=== PATIENT | female | born 1980 | race Caucasian/White ===

== ENCOUNTER → 2017-05-11 08:36 | Outpatient (CLI) | payer OTHER, SELFPAY | PROVIDERS: Visit Provider Obstetrics & Gynecology | DX: O09.92 Supervision of high risk pregnancy, unspecified, second trimester (principal); Z3A.00 Weeks of gestation of pregnancy not specified | CPT/HCPCS: 36415; 86850; 86900 ==

== ENCOUNTER → 2017-06-19 16:05 | Outpatient (CLI) | payer OTHER, SELFPAY ==
[2017-06-19 17:08] LABS: Absolute Lymphocyte Count 1.81 X10^3/ul (0.83-4.51); Absolute Neutrophil Count 4.8 X10^3/uL (2.0-7.7); Basophil# 0.01 X10^3/uL; Basophil% 0.1 % (0-1); Eosinophil# 0.13 X10^3/uL; Eosinophils% 1.7 % (0-5); Hematocrit 33.5 % (37-47); Hemoglobin 11.3 g/dl (12.0-15.0); Lymphocyte # 1.81 X10^3/ul (4.0); Lymphocyte % 24.1 % (19-41); Mean Corp Hgb Conc 33.7 g/gl (32-36); Mean Corpuscular Hgb 30.9 pg (27.0-32.0); Mean Corpuscular Volume 91.5 fL (81-99); Mean Platelet Vol. 9.9 fl (6.2-12.0); Monocyte# 0.77 X10^3/uL; Monocyte% 10.2 % (0-10); Neutrophil # 4.76 X10^3/uL (2.7-7.7); Neutrophil % 63.4 % (47-70); Platelet Count 259 K/mm3 (150-450); RBC Distribution Width SD 42.6 fl (35.1-43.9); Red Blood Count 3.66 M/mm3 (4.2-5.4); White Blood Count 7.5 K/mm3 (4.4-11.0)
[2017-06-19 17:10] LABS: POSITIVE COUNT NO; POSITIVE DIFFERENTIAL NO; POSITIVE MORPHOLOGY NO
[2017-06-19 17:22] LABS: Glucose Challenge Gest 1H 50g 99 mg/dL (70-140)
== END ==
PROVIDERS: Visit Provider Obstetrics & Gynecology
DX: O09.92 Supervision of high risk pregnancy, unspecified, second trimester (principal); Z3A.00 Weeks of gestation of pregnancy not specified
CPT/HCPCS: 36415; 82950; 85025

== ENCOUNTER → 2017-08-25 07:50 | Outpatient (CLI) | payer OTHER, SELFPAY ==
--- NOTE | 2017-08-25 07:53 | US_ITS ---
STUDY: SECOND AND THIRD TRIMESTER OBSTETRICAL ULTRASOUND REASON FOR EXAM: Female, 37 years old. Routine survey. LMP: December 16, 2016. TECHNIQUE: Transabdominal PRIOR ULTRASOUND: Comparison is made with prior study dated May 01, 2017. FINDINGS: There is a single intrauterine fetus. The fetus is in a cephalic presentation. There is demonstrated cardiac activity with a heart rate of 133 bpm. There is a normal amniotic fluid volume. The largest amniotic fluid pocket measures 4.9 cm x 4.3 cm. The amniotic fluid index (GERALDO) is 10.0 cm. The placenta is anterior in location and is not low lying. There are Grade 1 placental changes. The cervix measures in length. The bilateral adnexal regions are normal. BIOMETRY: BPD: 8.97 cm: 36 weeks, 3 days HC: 32.95 cm: 37 weeks, 4 days AC: 35.32 cm: 39 weeks, 2 days FL: 6.98 sign: 30 weeks, 6 days CI: 79% FL/BPD: 78% FL/HC: FL/AC: 20% HC/AC: 0.93 age by current US: 37 weeks, 2 days. DEUCE by current US: September 13, 2017. Estimated weight: 3344 grams, +/- 488 grams, 93 %. age by prior US: 36 weeks, 2 days. DEUCE by prior US: September 20, 2017. Age by LMP: 36 weeks, 0 days. DEUCE by LMP: September 22, 2017. US/OB Limited With Biometrics IMPRESSION: Single live intrauterine gestation with mean gestational age of 37 weeks and 2 days. The measurements obtained today fall within the normal expected range. Electronically Signed: Pietro Baumann MD at 9:40 EDT Tel [phone], Service support ,
== END ==
PROVIDERS: Visit Provider Obstetrics & Gynecology
DX: O26.843 Uterine size-date discrepancy, third trimester (principal)
CPT/HCPCS: 76816

== ENCOUNTER → 2017-08-27 18:47 | Outpatient (CLI) | payer OTHER, SELFPAY ==
[2017-08-27 21:18] LABS: Group B Strep DNA By PCR Negative (Negative); Internal Control PASS; Probe Check PASS; Specimen Processing Control PASS
== END ==
PROVIDERS: Visit Provider Nurse Practitioner Women's Health
DX: Z34.93 Encounter for supervision of normal pregnancy, unspecified, third trimester (principal); Z3A.36 36 weeks gestation of pregnancy
CPT/HCPCS: 87081; 87653

== ENCOUNTER → 2017-09-18 14:27 | Outpatient (CLI) | payer OTHER, SELFPAY ==
--- NOTE | 2017-09-18 14:27 | DT_ITS ---
This patient was seen during an EMR downtime September 14, 2017 - September 21, 2017. This patient may have a combination of paper and electronic documentation or all paper documentation. All documentation is viewable within the e-chart portion of [facility] for each patient visit.
--- NOTE | 2017-09-18 15:19 | US_ITS ---
STUDY: SECOND AND THIRD TRIMESTER OBSTETRICAL ULTRASOUND - LIMITED REASON FOR EXAM: Female, 37 years old. LARGE FOR GESTATIONAL AGE LMP: PRIOR ULTRASOUND: 5.15.18. TECHNIQUE: Transabdominal ultrasound evaluation was performed. FINDINGS: There is a single intrauterine fetus. The fetus is in a cephalic presentation. There is demonstrated cardiac activity with a heart rate of 146 bpm. There is a normal amniotic fluid volume. The largest amniotic fluid pocket measures 4.8 cm. The amniotic fluid index (GERALDO) is 17.9 cm. The placenta is anterior in location and is not low lying. There are Grade 2 placental changes. BIOMETRY: BPD: 94mm: 38 weeks, 3 days HC: 341mm: 39 weeks, 2 days AC: 357mm: 39 weeks, 4 days FL: 77mm: 39 weeks, 4 days Age by LMP: 39 weeks, 3 days. DEUCE by LMP: 6.12.18. age by current US: 39 weeks, 2 days. DEUCE by current US: 6.13.18. Estimated weight: 3762 grams, +/- 549 grams, 71 percentile. US/OB Limited With Biometrics IMPRESSION: There is a single live intrauterine with a heart rate of 146 bpm. age by current US: 39 weeks, 2 days. DEUCE by current US: 6.13.18. Estimated weight: 3762 grams, +/- 549 grams, 71 percentile Electronically Signed: Vincent Anderson MD at 23:05 EDT , Service support ,
== END ==
PROVIDERS: Visit Provider Obstetrics & Gynecology
DX: Z34.90 Encounter for supervision of normal pregnancy, unspecified, unspecified trimester (principal)
CPT/HCPCS: 76816

== ENCOUNTER 2017-09-22 07:05 | Inpatient (IN) | payer OTHER, SELFPAY ==
[2017-09-22] VITALS (22 sets, daily range): BP systolic 73–116; BP diastolic 45–94; PULSE 80–120; RESP 17–23; TEMP 36.1–37.2; O2SAT 100; BMI 30.2
--- NOTE | 2017-09-22 | PLAC_PTH ---
PATIENT: MJ SPANN LOC: [facility] U#:[id number] AGE/SX: 37/F ROOM: 007 RE09/22/[address]: Dr. Bessy Meade MD : 1980 BED: 1 DIS: 09/27/2017 SPEC #: [id number] RECD: 09/22/17 18:42 STATUS: CRISS RESamantha #: [id number] HERNANDEZ: 09/22/17 00:[address]: Bessy Meade DEPT: SURGICAL PATHOLOGY RECD BY: Vidal Hawley ENTERED: 09/23/17 07:47 SP TYPE: PLACENTA OTHR DR: No Primary Care Phys Tissues: Placenta, NOS Procedures: Surgery Specimen Level V HEADER OPERATION: PRE-OP DIAGNOSIS: Rule out abruption TISSUE SUBMITTED: Placenta MICROSCOPIC DIAGNOSIS Harris placenta (419 gm): Umbilical cord ? trivascular with no inflammation Placental membranes ? no pathologic change. Placental disc ? mild Calixto-Johnie change and intravillous congestion. AM:eulogio 09/25/17 MICROSCOPIC DESCRIPTION Slides are reviewed. GROSS DESCRIPTION SPECIMEN: PLACENTA / CLINICAL INFORMATION: A. Weight: 3.688 kg B. Gestational Age: 40 weeks C. Sex: Male PLACENTAL WEIGHT (POST FIXATION): 419 gm PLACENTAL DIMENSIONS: 17 x 16 x 3 cm PLACENTAL SHAPE: Usual ovoid PLACENTAL WEIGHT FOR GESTATIONAL AGE: Within 10-99th percentile MEMBRANES - Present A. Insertion: Marginal B. Site of rupture from edge: 2 cm from edge of placental disc C. Color of membrane: Fernandez-eckert D. Abnormalities: None UMBILICAL CORD - Present A. Color: Fernandez-eckert B. Insertion: The umbilical cord is inserted paracentrally 1 cm away from the margin of the placenta. C. Length: 32 cm D. Diameter: 1 to 1.2 cm E. Number of vessels: Three F. Abnormalities: The umbilical cord shows increased spiraling in half of the length of the umbilical cord towards the end. PLACENTAL DISC - Present A. Color of surface: Fernandez-eckert B. surface abnormalities: None C. Maternal cotyledons: Intact with minimal tears D. Attached retro placental clot: No clot E. Cut surface: Dark red and spongy F. Lesions: None G. Separate clot: Absent SECTIONS SUBMITTED: 1. Membrane roll 2. Cord, maternal end 3. Cord, end 4. Placental disc, and maternal surfaces 5. Placental disc, and maternal surfaces 6. Placental disc, and maternal surfaces, additional membranes SJ:eulogio 09/24/17 TC:5 CPT: 65180
[2017-09-22] MEDS: 0.9% Saline Lock 10 ML Syringe IV ×4 (07:50→18:38)
[2017-09-22] MEDS: Lactated Ringers 1,000 ML 50 ML IV (08:15)
[2017-09-22] MEDS: Oxytocin 30 units/NS 500 ml 30 UNITS/500 ML IV.SOLN IV (08:16)
[2017-09-22 08:17] LABS: Hematocrit 36.3 % (37-47); Hemoglobin 12.5 g/dl (12.0-15.0); Mean Corp Hgb Conc 34.4 g/gl (32-36); Mean Corpuscular Hgb 30.6 pg (27.0-32.0); Mean Corpuscular Volume 88.8 fL (81-99); Mean Platelet Vol. 11.6 fl (6.2-12.0); Platelet Count 193 K/mm3 (150-450); RBC Distribution Width CV 12.5 % (11.6-14.6); RBC Distribution Width SD 39.8 fl (35.1-43.9); Red Blood Count 4.09 M/mm3 (4.2-5.4); Scan Indicated on CBC? Y/N NO; White Blood Count 7.8 K/mm3 (4.4-11.0)
--- NOTE | 2017-09-22 09:26 | PCM.HP.OB ---
- Problem List (1) Uterine size-date discrepancy in third trimester Status: Acute Comment: discussed favorable cervix recommend IOL, plan IOL 40 weeks 91%ile, expectant management, discussed IOL if favorable, discussed primary cs if EFW 5000g (2) Rh negative status during Status: Acute Qualifiers: Comment: Had rhogam at 20 weeks, repeat at 32 weeks (3) Supervision of high risk in second trimester Status: Acute Comment: PRR DEUCE: 09/24/17; Boy;Spouse: Bill History Date of Admission: 09/22/17 Final DEUCE: 09/22/17 Gestational age: 40 Weeks and 0 Days History of this : This is a 37 year-old, G1, P0, at 40 weeks gestational age. she has had large for gestational age measurements and it was discussed with the patient IOL versus expectant management, due to favorable cervix I recommend IOL. Medical History: Medical History (Last Reviewed 09/10/17 @ 15:26 by Griselda Valera) Frequent headaches R51 Migraines G43.909 Surgical History: Surgical History (Last Reviewed 09/10/17 @ 15:26 by Griselda Valera) left shoulder surgery Allergies Sulfa (Sulfonamide Antibiotics) Allergy (Mild, Verified 09/22/17 07:42) Unknown Home Medications: Home Medications vitamin,calcium,gnlppkcp-fmqn-rmsby acid tablet 1 tab PO QDAY 03/27/17 Smoking Status: Never smoker Alcohol: None Number of Fetus(es): 1 Heart Tracins moderate variability reactive no decels cat I TOCO Analysis: no regular History Past Pregnancies: Past Pregnancies Delivery Date Name GA/Weeks Outcome Route Weight Gender Labor Length Anesthesia Delivery Location Provider FOB Labs: Mom's Labs & Results 09/22/17 09/22/17 07:50 07:50 WBC 7.8 RBC 4.09 L Hgb 12.5 Hct 36.3 L MCV 88.8 MCH 30.6 MCHC 34.4 RDW 12.5 RDW Differential 39.8 Plt Count 193 MPV 11.6 Blood Type B NEGATIVE Antibody Screen NEGATIVE Course Did the patient receive Yes care? Labs Blood Type: B RH: NEGATIVE RPR/VDRL/Syphilis Nonreactive Rubella status Immune HbSAg Negative Date Done: 04/23/17 Chlamydia Negative Gonorrhea Negative HIV/AIDS Non-Reactive Group B Strep: Negative Current Obstetrical History Gestational Diabetes No Incompetent Cervix No Infertility No IUGR No Macrosomia Yes: POSSIBLE, 1ST 93 PERCENTILE, SECOND AT 73 PERCENTILE Hypertension/Pre-eclampsia No Placenta Previa/Abruption No PTL/PROM No Uterine anomaly No Oligohydramnios No Polyhydramnios No Multiple gestation No Past Medical History Asthma No Diabetes No Hypertension No Heart disease No Mitral valve prolapse No Neurologic/Seizure disorder/ No Migraines Kidney disease No Liver disease No Varicosities No Clotting disorders/Hx of DVT No Thyroid Dysfunction No Other medical diseases No Psychiatric disorders No Major trauma No Abnormal PAP smear No Sleep apnea No Mammogram in the last 2 years No Social History Marital Status: Alleged father BILL Hx Smoking No Smoking Status Never smoker How long have you used DENIES USE substances (years)? Review of Systems Constitutional: Denies: Fever, Malaise Eyes: Denies: Blurred vision, Vision Change HEENT: Denies: Head Aches, Visual Changes Cardiovascular: Denies: Chest Pain, Palpitations Respiratory: Denies: Cough, Shortness of Breath, Wheezing Gastrointestinal: Denies: Abdominal Pain, Diarrhea, Nausea, Vomiting Genitourinary: Denies: Dysuria, Hematuria Musculoskeletal: Denies: Joint Pain, Muscle pain Skin: Denies: Lesions, Rash Neurological: Denies: Blurred vision, Focal weakness, Headaches Psychiatric: Denies: Anxiety, Depression Endocrine: Denies: Heat/ Cold Intolerance Hematologic/ Lymphatic: Denies: Easy Bruising, Easy Bleeding Physical Exam General: Alert, Cooperative, No apparent distress HEENT: Atraumatic, Normocephalic. Negative for: Thyromegaly, Lymphadenopathy Cardiovascular: Regular rate Lungs: Normal air movement Abdomen: Soft, Non Tender, Gravid Neurological: Deep Tendon Reflexes 2+/4 and Symmetrical, Neuro grossly intact. Negative for: Clonus CORROSION CONTROL FITTER: Normal external genitalia. Negative for: Vulvar lesions Estimated gestational size: Appropriate for gestational size Presentation: Cephalic Cervix Dilation (cm): 3 Station: -2 Effacement (%): 70 Assessment/Plan All Active Problems (Last Reviewed 09/10/17 @ 15:26 by Griselda Valera) Uterine size-date discrepancy in third trimester (Acute) Rh negative status during (Acute) Supervision of high risk in second trimester (Acute) This is a 37 year-old, G1, P0, at 40 weeks gestational age. iol LGA plan pitocin IOL. epi PRN gbs neg
[2017-09-22] MEDS: fentaNYL-bupivacaine (epidural) 100 ML BAG EPIDURAL (12:20)
[2017-09-22] MEDS: Oxytocin 30 units/NS 500 ml 30 UNITS/500 ML IV.SOLN 167 UNITS IV (13:20)
[2017-09-22] MEDS: Cefazolin 2 GM in 0.9% Normal Saline 100 ML IV ×2 (13:30→22:01)
--- NOTE | 2017-09-22 13:30 | CASEMGMT ---
Social Work Note Labor and Delivery All staff call to patient's room during labor process due to concerns with baby's rate. Arrived to room as patient was being taken back to surgical area for possible caesarian section delivery. Madi, who is the father of baby and reported to patient, present in room. No other family members present at this time. Madi reports this is all new to him and not really sure what is happening, this is the first child for both. This telegraphic typewriter operator accompanied Madi to the operating area, answered questions as able, offered support, and sat with Madi until Madi was able to be with either patient or baby. No other services requested at this time. -SOPHIE Ortega, RN [facility]
--- NOTE | 2017-09-22 14:05 | RAD_ITS ---
STUDY: X-RAY - ABDOMEN/PELVIS REASON FOR EXAM: Female, 37 years old. Instrument check post . TECHNIQUE: Two portable AP supine views of the abdomen and pelvis. COMPARISON: None. FINDINGS: Non-visualized lung bases. There is an unremarkable bowel gas pattern. There is no demonstrated free abdominal air. The visualized liver, spleen and kidneys grossly normal in size and morphology. There is soft tissue fullness extending cephalad from the pelvis, consistent with an enlarged uterus. Small calcified phlebolith projects in the left pelvic soft tissues. There are no retained surgical instruments. There are mild degenerative arthroses of the bilateral sacroiliac joints. RAD/Abdomen Single View (Portable) IMPRESSION: 1. Soft tissue fullness consistent with enlarged uterus arising from the pelvis. 2. No retained surgical segments. 3. The bowel gas pattern is nonspecific. Electronically Signed: Demarcus Johnson MD at 14:54 EDT , Service support ,
[2017-09-22 15:09] LABS: Absolute Neutrophil Count 18.5 X10^3/uL (2.0-7.7); Basophil# 0.03 X10^3/uL; Basophil% 0.1 % (0-1); Eosinophil# 0.08 X10^3/uL; Eosinophils% 0.4 % (0-5); Hematocrit 29.3 % (37-47); Lymphocyte % 5.8 % (19-41); Mean Corp Hgb Conc 34.1 g/gl (32-36); Mean Corpuscular Hgb 30.9 pg (27.0-32.0); Mean Corpuscular Volume 90.4 fL (81-99); Mean Platelet Vol. 10.8 fl (6.2-12.0); Monocyte# 0.73 X10^3/uL; Monocyte% 3.5 % (0-10); Neutrophil # 18.46 X10^3/uL (2.7-7.7); Neutrophil % 89.9 % (47-70); POSITIVE COUNT NO; POSITIVE DIFFERENTIAL NO; POSITIVE MORPHOLOGY NO; Platelet Count 159 K/mm3 (150-450); RBC Distribution Width CV 12.8 % (11.6-14.6); RBC Distribution Width SD 40.9 fl (35.1-43.9); Red Blood Count 3.24 M/mm3 (4.2-5.4); White Blood Count 20.6 K/mm3 (4.4-11.0)
[2017-09-22 15:28] LABS: International Normalized Ratio 1.8; Prothrombin Time (Protime)PT. 21.3 SECONDS (11.7-14.9)
[2017-09-22 15:30] LABS: Partial Thromboplast Time 64.9 Seconds (24.1-36.2)
[2017-09-22 15:42] LABS: Fibrinogen 69 mg/dl (203-444)
[2017-09-22 17:22] LABS: Absolute Lymphocyte Count 1.24 X10^3/ul (0.83-4.51); Absolute Neutrophil Count 17.8 X10^3/uL (2.0-7.7); Basophil# 0.02 X10^3/uL; Basophil% 0.1 % (0-1); Differential Indicated SCAN CRITERIA MET; Eosinophil# 0.03 X10^3/uL; Eosinophils% 0.1 % (0-5); Hemoglobin 8.2 g/dl (12.0-15.0); Lymphocyte # 1.24 X10^3/ul (4.0); Mean Corp Hgb Conc 32.8 g/gl (32-36); Mean Corpuscular Hgb 29.9 pg (27.0-32.0); Mean Corpuscular Volume 91.2 fL (81-99); Mean Platelet Vol. 10.9 fl (6.2-12.0); Monocyte# 1.57 X10^3/uL; Monocyte% 7.6 % (0-10); Neutrophil # 17.81 X10^3/uL (2.7-7.7); Neutrophil % 85.6 % (47-70); POSITIVE COUNT NO; POSITIVE DIFFERENTIAL YES; POSITIVE MORPHOLOGY NO; Platelet Count 192 K/mm3 (150-450); RBC Distribution Width CV 12.8 % (11.6-14.6); RBC Distribution Width SD 41.2 fl (35.1-43.9); Red Blood Count 2.74 M/mm3 (4.2-5.4); White Blood Count 20.8 K/mm3 (4.4-11.0)
[2017-09-22 17:25] LABS: International Normalized Ratio 2.7; Partial Thromboplast Time 46.4 Seconds (24.1-36.2); Prothrombin Time (Protime)PT. 29.2 SECONDS (11.7-14.9)
[2017-09-22 17:46] LABS: Fibrinogen < 60 mg/dl (203-444)
--- NOTE | 2017-09-22 18:16 | NURSING ---
Pt reports feeling great. Family at bedside.
[2017-09-22 18:28] LABS: Differential Comment SCANNED
--- NOTE | 2017-09-22 19:36 | NURSING ---
Anesthesia gave 500 of pitocin in OR after delivery.
--- NOTE | 2017-09-22 21:10 | NURSING ---
x ray ordered for instrument count due to urgency of surgery, unable to count prior to incision. K, Ebin
--- NOTE | 2017-09-22 21:20 | OP.PCM_ITS ---
Problem List (1) Uterine size-date discrepancy in third trimester Status: Acute Comment: discussed favorable cervix recommend IOL, plan IOL 40 weeks 91%ile, expectant management, discussed IOL if favorable, discussed primary cs if EFW 5000g (2) Rh negative status during Status: Acute Qualifiers: Comment: Had rhogam at 20 weeks, repeat at 32 weeks (3) Supervision of high risk in second trimester Status: Acute Comment: PRR DEUCE: 09/24/17; Boy;Spouse: Madi Report of Operation Date of Procedure: 09/22/17 Pre-Operative Diagnosis: bradycardia, remote from delivery Post-Operative Diagnosis: same plus abruption and rupture of vessels from velamentous cord insertion Surgery/Procedure Performed:: primary low transverse section Description of Surgical Findings:: placental abruption 10% and extrvasation of blood from vessels near velamentous cord insertion reservations sales supervisor: Marli Engle reservations sales supervisor: Avi Ortiz Type of Anesthesia:: Epidural Special Medications: ancef Specimen's removed: placenta, male infant vertex presentation Drains: kay Estimated Blood Loss (mL): 900 Fluids Replaced: crystalloid Description of Procedure: Patient received epidural anesthesia and underwent AROM clear fluid, when about ten minutes later there was a terminal bradycardia, the patient underwent position changes and was taken to the back with persistent bradycardia confirmed and therefore a stat csection was called. Kay catheter was placed. The patient was placed in the dorsal supine position with leftward tilt. Patient was splash prepped and draped in sterile fashion. Pfannenstiel skin incision was made with the scalpel and carried through to the underlying layer of fascia with the scalpel. Fascia was nicked in the midline and the incision extended laterally. The peritoneum was entered digitally. The incision was stretched and a low transverse uterine incision was made with the scalpel. The infant's head was delivered atraumatically followed by the anterior and posterior shoulders without complication the rest of the infant delivered. The cord was clamped and cut and the infant was handed off to awaiting nurse. The placenta was delivered spontaneously immediately following and was noted to be intact and have a three-vessel cord- see operative findings for details. The uterus was exteriorized cleared of all clots and debris, and the incision was closed in a double layer closure using #1 Monocryl. there was a small cervical extension vaginally that was repaired also in a double layer closure. The uterus was returned to the maternal abdomen and gutters were cleared of all clots and debris. The ovaries and fallopian tubes were noted to be within normal limits. The peritoneum was closed with 3-0 Monocryl in a running fashion. Fascia was closed with 0 PDS in a running fashion. Subcutaneous tissue was copiously irrigated and the skin was closed with 3-0 Monocryl in a subcutanoeous and subcuticular fashion. Mepilex dressing were applied without complication. Patient was taken to recovery in stable condition. Grafts/Implants Used: kay - Complications none - Admit VTE Documentation VTE Present on Admission: No VTE Mechan Device Prophylaxis: SCD's
--- NOTE | 2017-09-22 21:21 | PCM.PN.OB ---
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 (Acute) hemorrhage (Acute) Anemia associated with acute blood loss (Acute) DIC (disseminated intravascular coagulation) (Acute) Subjective: called secondary to PPH- atony noted, patient seen at 1448. methergine, hemabate, and pitocin given. atony resolved but persistent bleeding- bakri balloon placed with 500cc inflated. minimal persistent bleeding noted, lysteda given. bedside ultrasound performed and no retained POC or intrauterine clot seen. coag panel sent. patient reevaluated at 1600 due to low fibrinogen and elevated coag panel- will give 2 units FFP and 1 pack of cryo. 300 cc out from bakri balloon, no clinical bleeding from IV sites or incision. hespan given. patient reevaluated at 1730 and s/p ffp and cryo, will give 1 unit PRBCs, continuing to stabilize and feels better. - Physical Exam General: Alert, Oriented x3 Lungs: Normal air movement Cardiovascular: No murmurs, Tachycardic Abdomen: Soft, Non Tender, - - FF at Umbilicus Extremities: No edema Psych/Mental Status: Normal Affect, Appropriate Vital Signs Temp Pulse Resp BP Pulse Ox 98.0 F 100 17 109/67 100 09/22/17 20:35 09/22/17 20:35 09/22/17 20:35 09/22/17 20:35 09/22/17 20:35 Oxygen Delivery Method Room Air Weight: 205 lb Body Mass Index (BMI) 30.2 Intake and Output for Last 24 Hours 09/20/17 09/21/17 09/22/17 23:59 23:59 23:59 Intake Total 5312 / 5312 Output Total 775 / 775 Balance 4537 / 4537 Laboratory Tests Past 24 Hrs 09/22/17 09/22/17 09/22/17 07:50 07:50 07:50 WBC 7.8 RBC 4.09 L Hgb 12.5 Hct 36.3 L MCV 88.8 MCH 30.6 MCHC 34.4 RDW 12.5 RDW Differential 39.8 Plt Count 193 MPV 11.6 Immature Gran % (Auto) Neut % (Auto) Lymph % (Auto) [place] % (Auto) Eos % (Auto) Baso % (Auto) Absolute Neuts (auto) Absolute Lymphs (auto) Total Counted Differential Comment PT INR APTT Fibrinogen Blood Type B NEGATIVE Antibody Screen NEGATIVE Crossmatch See Detail 09/22/17 09/22/17 09/22/17 14:50 14:50 16:40 WBC 20.6 H 20.8 H RBC 3.24 L 2.74 L Hgb 10.0 L 8.2 L Hct 29.3 L 25.0 L MCV 90.4 91.2 MCH 30.9 29.9 MCHC 34.1 32.8 RDW 12.8 12.8 RDW Differential 40.9 41.2 Plt Count 159 192 MPV 10.8 10.9 Immature Gran % (Auto) 0.300 0.600 Neut % (Auto) 89.9 H 85.6 H Lymph % (Auto) 5.8 L 6.0 L [place] % (Auto) 3.5 7.6 Eos % (Auto) 0.4 0.1 Baso % (Auto) 0.1 0.1 Absolute Neuts (auto) 18.5 H 17.8 H Absolute Lymphs (auto) 1.20 1.24 Total Counted Not Reportable Not Reportable Differential Comment SCANNED PT 21.3 H INR 1.8 APTT 64.9 H Fibrinogen 69 L* Blood Type Antibody Screen Crossmatch 09/22/17 16:40 WBC RBC Hgb Hct MCV MCH MCHC RDW RDW Differential Plt Count MPV Immature Gran % (Auto) Neut % (Auto) Lymph % (Auto) [place] % (Auto) Eos % (Auto) Baso % (Auto) Absolute Neuts (auto) Absolute Lymphs (auto) Total Counted Differential Comment PT 29.2 H INR 2.7 APTT 46.4 H Fibrinogen < 60 L* Blood Type Antibody Screen Crossmatch Medical Necessity - Tobacco Use Smoking Status: Never smoker Assessment/Plan All Active Problems (Last Reviewed 09/10/17 @ 15:26 by Griselda Valera) 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 s/p LTCS due to bradycardia velamentous cord insertion with rupture of umbilical vessels and abruption hemorrhage- sp methergine hemabate pitocin lysteda. bakri balloon in place- dc 18-24 hours. additional dose of ancef given DIC- blood products replaced, check repeat labs in 4 hours, discussed with ICU attending, stable for continued status on floor. anemia secondary to acute blood loss- sp 2 units FFp, 1 unit cryo, hespan, crystalloid.
[2017-09-22] MEDS: oxyCODONE 5 MG Tablet PO (21:45)
[2017-09-22] MEDS: Lactated Ringers 1,000 ML 100 ML IV (22:30)
[2017-09-23] VITALS (44 sets, daily range): BP systolic 81–116; BP diastolic 32–77; PULSE 83–156; RESP 15–39; TEMP 36.3–38.3; O2SAT 91–100
[2017-09-23 00:59] LABS: Basophil% 0.1 % (0-1); Differential Indicated SCAN CRITERIA MET; Hematocrit 16.1 % (37-47); Hemoglobin 5.5 g/dl (12.0-15.0); Lymphocyte % 6.3 % (19-41); Mean Corp Hgb Conc 34.2 g/gl (32-36); Mean Corpuscular Hgb 29.6 pg (27.0-32.0); Mean Corpuscular Volume 86.6 fL (81-99); Mean Platelet Vol. 10.5 fl (6.2-12.0); Monocyte% 10.6 % (0-10); Neutrophil # 12.48 X10^3/uL (2.7-7.7); Neutrophil % 82.9 % (47-70); POSITIVE COUNT YES; POSITIVE DIFFERENTIAL YES; POSITIVE MORPHOLOGY YES; Platelet Count 78 K/mm3 (150-450); RBC Distribution Width CV 13.6 % (11.6-14.6); RBC Distribution Width SD 43.3 fl (35.1-43.9); Red Blood Count 1.86 M/mm3 (4.2-5.4); White Blood Count 15.1 K/mm3 (4.4-11.0)
[2017-09-23 01:00] LABS: Absolute Lymphocyte Count 0.95 X10^3/ul (0.83-4.51); Absolute Neutrophil Count 12.5 X10^3/uL (2.0-7.7); Basophil# 0.01 X10^3/uL; Lymphocyte # 0.95 X10^3/ul (4.0); Monocyte# 1.59 X10^3/uL
[2017-09-23 01:01] LABS: International Normalized Ratio 1.3; Prothrombin Time (Protime)PT. 16.5 SECONDS (11.7-14.9)
[2017-09-23 01:02] LABS: Partial Thromboplast Time 32.3 Seconds (24.1-36.2)
[2017-09-23 01:09] LABS: Fibrinogen 160 mg/dl (203-444)
--- NOTE | 2017-09-23 01:40 | NURSING ---
Dr. Johnson notified via phone of patient's lab results. Orders received to give 3 units PRBC's and 1 unit FFP. There are to be 2 units of blood on hold and platelets on hold. Blood bank notified of above orders.
[2017-09-23 01:46] LABS: Differential Comment SCANNED
[2017-09-23] MEDS: 0.9% Normal Saline 1,000 ML 250 ML IV ×2 (01:50→12:50)
--- NOTE | 2017-09-23 02:06 | PCM.PN.OB ---
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 (Acute) hemorrhage (Acute) Anemia associated with acute blood loss (Acute) DIC (disseminated intravascular coagulation) (Acute) Objective: Labs (Last 48 Hours) 09/22/17 09/22/17 09/22/17 07:50 07:50 07:50 WBC 7.8 RBC 4.09 L Hgb 12.5 Hct 36.3 L MCV 88.8 MCH 30.6 MCHC 34.4 RDW 12.5 RDW Differential 39.8 Plt Count 193 MPV 11.6 Immature Gran % (Auto) Neut % (Auto) Lymph % (Auto) [place] % (Auto) Eos % (Auto) Baso % (Auto) Absolute Neuts (auto) Absolute Lymphs (auto) Total Counted Differential Comment Diff Path Review PT INR APTT Fibrinogen Blood Type B NEGATIVE Antibody Screen NEGATIVE Screen Baby's Blood Type Baby's SONDRA Crossmatch See Detail 09/22/17 09/22/17 09/22/17 07:50 14:50 14:50 WBC 20.6 H RBC 3.24 L Hgb 10.0 L Hct 29.3 L MCV 90.4 MCH 30.9 MCHC 34.1 RDW 12.8 RDW Differential 40.9 Plt Count 159 MPV 10.8 Immature Gran % (Auto) 0.300 Neut % (Auto) 89.9 H Lymph % (Auto) 5.8 L [place] % (Auto) 3.5 Eos % (Auto) 0.4 Baso % (Auto) 0.1 Absolute Neuts (auto) 18.5 H Absolute Lymphs (auto) 1.20 Total Counted Not Reportable Differential Comment Diff Path Review PT 21.3 H INR 1.8 APTT 64.9 H Fibrinogen 69 L* Blood Type Antibody Screen Screen Baby's Blood Type Baby's SONDRA Crossmatch See Detail 09/22/17 09/22/17 09/23/17 16:40 16:40 00:30 WBC 20.8 H 15.1 H RBC 2.74 L 1.86 L Hgb 8.2 L 5.5 L* Hct 25.0 L 16.1 L MCV 91.2 86.6 MCH 29.9 29.6 MCHC 32.8 34.2 RDW 12.8 13.6 RDW Differential 41.2 43.3 Plt Count 192 78 L MPV 10.9 10.5 Immature Gran % (Auto) 0.600 0.100 Neut % (Auto) 85.6 H 82.9 H Lymph % (Auto) 6.0 L 6.3 L [place] % (Auto) 7.6 10.6 H Eos % (Auto) 0.1 0.0 Baso % (Auto) 0.1 0.1 Absolute Neuts (auto) 17.8 H 12.5 H Absolute Lymphs (auto) 1.24 0.95 Total Counted Not Reportable Not Reportable Differential Comment SCANNED SCANNED Diff Path Review August PT 29.2 H INR 2.7 APTT 46.4 H Fibrinogen < 60 L* Blood Type Antibody Screen Screen Baby's Blood Type Baby's SONDRA Crossmatch 09/23/17 09/23/17 00:30 00:30 WBC RBC Hgb Hct MCV MCH MCHC RDW RDW Differential Plt Count MPV Immature Gran % (Auto) Neut % (Auto) Lymph % (Auto) [place] % (Auto) Eos % (Auto) Baso % (Auto) Absolute Neuts (auto) Absolute Lymphs (auto) Total Counted Differential Comment Diff Path Review PT 16.5 H INR 1.3 APTT 32.3 Fibrinogen 160 L Blood Type Antibody Screen Screen Pending Baby's Blood Type Pending Baby's SONDRA Pending Crossmatch - Physical Exam General: Alert, Oriented x3, No apparent distress Lungs: Normal air movement Cardiovascular: Tachycardic - mild 105-115 Abdomen: Tender, - - moderate distended, incision intact and dry bandage, fundus firm at U and bedside ultrasound done, thin lining with no intrauterine clot seen. bakri balloon bag drained for 75, total 475 since delivery. Vital Signs Temp Pulse Resp BP Pulse Ox 98.3 F 105 H 16 103/52 L 100 09/23/17 01:58 09/23/17 01:58 09/23/17 01:58 09/23/17 01:58 09/23/17 01:58 Oxygen Delivery Method Room Air Weight: 205 lb Body Mass Index (BMI) 30.2 Intake and Output for Last 24 Hours 09/21/17 09/22/17 09/23/17 23:59 23:59 23:59 Intake Total 5312 / 5312 900 / 900 Output Total 775 / 775 475 / 475 Balance 4537 / 4537 425 / 425 Laboratory Tests Past 24 Hrs 09/22/17 09/22/17 09/22/17 07:50 07:50 07:50 WBC 7.8 RBC 4.09 L Hgb 12.5 Hct 36.3 L MCV 88.8 MCH 30.6 MCHC 34.4 RDW 12.5 RDW Differential 39.8 Plt Count 193 MPV 11.6 Immature Gran % (Auto) Neut % (Auto) Lymph % (Auto) [place] % (Auto) Eos % (Auto) Baso % (Auto) Absolute Neuts (auto) Absolute Lymphs (auto) Total Counted Differential Comment Diff Path Review PT INR APTT Fibrinogen Blood Type B NEGATIVE Antibody Screen NEGATIVE Screen Baby's Blood Type Baby's SONDRA Crossmatch See Detail 09/22/17 09/22/17 09/22/17 07:50 14:50 14:50 WBC 20.6 H RBC 3.24 L Hgb 10.0 L Hct 29.3 L MCV 90.4 MCH 30.9 MCHC 34.1 RDW 12.8 RDW Differential 40.9 Plt Count 159 MPV 10.8 Immature Gran % (Auto) 0.300 Neut % (Auto) 89.9 H Lymph % (Auto) 5.8 L [place] % (Auto) 3.5 Eos % (Auto) 0.4 Baso % (Auto) 0.1 Absolute Neuts (auto) 18.5 H Absolute Lymphs (auto) 1.20 Total Counted Not Reportable Differential Comment Diff Path Review PT 21.3 H INR 1.8 APTT 64.9 H Fibrinogen 69 L* Blood Type Antibody Screen Screen Baby's Blood Type Baby's SONDRA Crossmatch See Detail 09/22/17 09/22/17 09/23/17 16:40 16:40 00:30 WBC 20.8 H 15.1 H RBC 2.74 L 1.86 L Hgb 8.2 L 5.5 L* Hct 25.0 L 16.1 L MCV 91.2 86.6 MCH 29.9 29.6 MCHC 32.8 34.2 RDW 12.8 13.6 RDW Differential 41.2 43.3 Plt Count 192 78 L MPV 10.9 10.5 Immature Gran % (Auto) 0.600 0.100 Neut % (Auto) 85.6 H 82.9 H Lymph % (Auto) 6.0 L 6.3 L [place] % (Auto) 7.6 10.6 H Eos % (Auto) 0.1 0.0 Baso % (Auto) 0.1 0.1 Absolute Neuts (auto) 17.8 H 12.5 H Absolute Lymphs (auto) 1.24 0.95 Total Counted Not Reportable Not Reportable Differential Comment SCANNED SCANNED Diff Path Review May foll PT 29.2 H INR 2.7 APTT 46.4 H Fibrinogen < 60 L* Blood Type Antibody Screen Screen Baby's Blood Type Baby's SONDRA Crossmatch 09/23/17 09/23/17 00:30 00:30 WBC RBC Hgb Hct MCV MCH MCHC RDW RDW Differential Plt Count MPV Immature Gran % (Auto) Neut % (Auto) Lymph % (Auto) [place] % (Auto) Eos % (Auto) Baso % (Auto) Absolute Neuts (auto) Absolute Lymphs (auto) Total Counted Differential Comment Diff Path Review PT 16.5 H INR 1.3 APTT 32.3 Fibrinogen 160 L Blood Type Antibody Screen Screen Pending Baby's Blood Type Pending Baby's SONDRA Pending Crossmatch Medical Necessity - Tobacco Use Smoking Status: Never smoker Assessment/Plan All Active Problems (Last Reviewed 09/10/17 @ 15:26 by Griselda Valera) 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 bakri balloon in place- dc at noon. additional dose of ancef given DIC- normalizing coagulation profile. giving additional unit ffp and cryo. anemia secondary to acute blood loss- sp 2 units FFP, 1 unit cryo, hespan, crystalloid. transfusing additional 3 units of RBCs, 1 unit FFP, 1 unit of cryo, and ordered a pack of platelets.
[2017-09-23] MEDS: DiphenhydrAMINE 50 MG/ML Syringe IV (02:15)
[2017-09-23] MEDS: Acetaminophen 325 MG Tablet 650 MG PO (02:15)
--- NOTE | 2017-09-23 02:23 | NURSING ---
0145 Dr. Meade at bedside to assess patient. Bedside US completed. No new orders at this time.
[2017-09-23] MEDS: oxyCODONE 5 MG Tablet PO ×5 (03:36→21:55)
--- NOTE | 2017-09-23 03:45 | NURSING ---
0230 Dr. Nicholson notified via phone regarding order to run both bags of RBC's in at the same time. In route to patient's room to assist with monitoring.
--- NOTE | 2017-09-23 05:45 | NURSING ---
0500- Dr. Meade called to patient room to assess abdomen. Visually looks more distended. Soft on palpation and uterus remains +1 station. Orders received to send blood work at this time.
[2017-09-23] MEDS: Senna/Docusate Sodium 1 Tablet PO (05:59)
--- NOTE | 2017-09-23 06:45 | NURSING ---
Attempted lab draw on patient several times without success. Lab notified and will come and draw specimen.
[2017-09-23 07:39] LABS: ALB/GLOB Ratio 0.8 RATIO (0.9-2.4); AST(SGOT) 37 U/L (15-37); Alanine Aminotransfer ALT/SGPT 18 U/L (13-56); Albumin, Serum 1.9 g/dL (3.2-5.0); Alkaline Phosphatase 72 U/L (45-117); Anion Gap 11 (5-15); BUN 13 mg/dL (7-18); BUN/Creat Ratio 11.5 RATIO (10-20); Calcium,Total 7.2 mg/dL (8.5-10.1); Chloride 105 mmol/L (98-107); Creatinine, Serum 1.13 mg/dL (0.55-1.02); EST Glomerular Filtration Rate 58 mL/min (>60); Est Glom Filt Rate - Afr Amer 70 mL/min (>60); Globulin 2.5 g/dL (2.2-4.2); Glucose 90 mg/dL (74-106); Magnesium 1.4 mg/dL (1.6-2.6); Potassium 4.2 mmol/L (3.5-5.1); Protein, Total 4.4 g/dL (6.4-8.2); Sodium Level 137 mmol/L (136-145)
[2017-09-23 08:47] LABS: Partial Thromboplast Time 28.4 Seconds (24.1-36.2)
[2017-09-23 08:48] LABS: Fibrinogen 273 mg/dl (203-444)
[2017-09-23 08:51] LABS: International Normalized Ratio 1.2
--- NOTE | 2017-09-23 09:06 | PCM.PN.OB ---
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 bleeding stable. last unit of cryo going- recommend checking labs now patient seen at 730 am- had difficulty drawing labs but they have been sent now, distension is slightly less but still prominent, has increased bowel sounds now, softer abdomen, but cigar wrapper tender automatic. no CP SOB NV - Physical Exam General: Alert, No apparent distress Lungs: Clear to auscultation, Normal air movement Cardiovascular: Regular rate, Regular Rhythm, No murmurs Abdomen: Bowel Sounds Present, Soft, Distended, Tender Skin: No rashes, No breakdown Psych/Mental Status: Normal Affect, Appropriate Vital Signs Temp Pulse Resp BP Pulse Ox 99.7 F H 90 18 105/66 100 09/23/17 08:19 09/23/17 08:19 09/23/17 08:19 09/23/17 08:19 09/23/17 08:19 Oxygen Delivery Method Room Air Weight: 205 lb Body Mass Index (BMI) 30.2 Intake and Output for Last 24 Hours 09/21/17 09/22/17 09/23/17 23:59 23:59 23:59 Intake Total 5312 / 5312 3840 / 3840 Output Total 775 / 775 1775 / 1775 Balance 4537 / 4537 2065 / 2065 Laboratory Tests Past 24 Hrs 09/22/17 09/22/17 09/22/17 07:50 07:50 07:50 WBC Corrected WBC RBC Hgb Hct MCV MCH MCHC RDW RDW Differential Plt Count MPV Immature Gran % (Auto) Neut % (Auto) Lymph % (Auto) [place] % (Auto) Eos % (Auto) Baso % (Auto) Immature Gran # (Auto) Absolute Neuts (auto) Absolute Lymphs (auto) Absolute Monos (auto) Total Counted Neutrophils % (Manual) Band Neutrophils % Lymphocytes % (Manual) Monocytes % (Manual) Eosinophils % (Manual) Basophils % (Manual) Metamyelocytes % Myelocytes % Promyelocytes % Blast Cells % Plasma Cell % (Manual) Other Cells % Lymphocytes # Nucleated RBCs/100 WBC Differential Comment Diff Path Review Hypersegmented Neuts Atypical Lymphocytes Reactive Lymphocytes Smudge Cells Eosinophilia # Basophilia # Toxic Granulation Dohle Bodies Patricia Rods Platelet Estimate Plt Morphology Comment RBC Morphology Polychromasia Hypochromasia Poikilocytosis Basophilic Stippling Anisocytosis Microcytosis Macrocytosis Spherocytes Sickle Cells Target Cells Tear Drop Cells Ovalocytes Stomatocytes [place] Bodies [place] Cells Bite Cells Acanthocytes (Spur) Rouleaux Schistocytes PT INR APTT Fibrinogen Sodium Potassium Chloride Carbon Dioxide Anion Gap BUN Creatinine Est GFR (MDRD) Af Amer Est GFR (MDRD) Non-Af BUN/Creatinine Ratio Glucose Calcium Magnesium Total Bilirubin AST ALT Alkaline Phosphatase Total Protein Albumin Globulin Albumin/Globulin Ratio Blood Type B NEGATIVE Antibody Screen NEGATIVE Screen Baby's Blood Type Baby's SONDRA Crossmatch See Detail See Detail 09/22/17 09/22/17 09/22/17 14:50 14:50 16:40 WBC 20.6 H 20.8 H Corrected WBC RBC 3.24 L 2.74 L Hgb 10.0 L 8.2 L Hct 29.3 L 25.0 L MCV 90.4 91.2 MCH 30.9 29.9 MCHC 34.1 32.8 RDW 12.8 12.8 RDW Differential 40.9 41.2 Plt Count 159 192 MPV 10.8 10.9 Immature Gran % (Auto) 0.300 0.600 Neut % (Auto) 89.9 H 85.6 H Lymph % (Auto) 5.8 L 6.0 L [place] % (Auto) 3.5 7.6 Eos % (Auto) 0.4 0.1 Baso % (Auto) 0.1 0.1 Immature Gran # (Auto) Absolute Neuts (auto) 18.5 H 17.8 H Absolute Lymphs (auto) 1.20 1.24 Absolute Monos (auto) Total Counted Not Reportable Not Reportable Neutrophils % (Manual) Band Neutrophils % Lymphocytes % (Manual) Monocytes % (Manual) Eosinophils % (Manual) Basophils % (Manual) Metamyelocytes % Myelocytes % Promyelocytes % Blast Cells % Plasma Cell % (Manual) Other Cells % Lymphocytes # Nucleated RBCs/100 WBC Differential Comment SCANNED Diff Path Review Hypersegmented Neuts Atypical Lymphocytes Reactive Lymphocytes Smudge Cells Eosinophilia # Basophilia # Toxic Granulation Dohle Bodies Patricia Rods Platelet Estimate Plt Morphology Comment RBC Morphology Polychromasia Hypochromasia Poikilocytosis Basophilic Stippling Anisocytosis Microcytosis Macrocytosis Spherocytes Sickle Cells Target Cells Tear Drop Cells Ovalocytes Stomatocytes [place] Bodies [place] Cells Bite Cells Acanthocytes (Spur) Rouleaux Schistocytes PT 21.3 H INR 1.8 APTT 64.9 H Fibrinogen 69 L* Sodium Potassium Chloride Carbon Dioxide Anion Gap BUN Creatinine Est GFR (MDRD) Af Amer Est GFR (MDRD) Non-Af BUN/Creatinine Ratio Glucose Calcium Magnesium Total Bilirubin AST ALT Alkaline Phosphatase Total Protein Albumin Globulin Albumin/Globulin Ratio Blood Type Antibody Screen Screen Baby's Blood Type Baby's SONDRA Crossmatch 09/22/17 09/23/17 09/23/17 16:40 00:30 00:30 WBC 15.1 H Corrected WBC RBC 1.86 L Hgb 5.5 L* Hct 16.1 L MCV 86.6 MCH 29.6 MCHC 34.2 RDW 13.6 RDW Differential 43.3 Plt Count 78 L MPV 10.5 Immature Gran % (Auto) 0.100 Neut % (Auto) 82.9 H Lymph % (Auto) 6.3 L [place] % (Auto) 10.6 H Eos % (Auto) 0.0 Baso % (Auto) 0.1 Immature Gran # (Auto) Absolute Neuts (auto) 12.5 H Absolute Lymphs (auto) 0.95 Absolute Monos (auto) Total Counted Not Reportable Neutrophils % (Manual) Band Neutrophils % Lymphocytes % (Manual) Monocytes % (Manual) Eosinophils % (Manual) Basophils % (Manual) Metamyelocytes % Myelocytes % Promyelocytes % Blast Cells % Plasma Cell % (Manual) Other Cells % Lymphocytes # Nucleated RBCs/100 WBC Differential Comment SCANNED Diff Path Review May foll Hypersegmented Neuts Atypical Lymphocytes Reactive Lymphocytes Smudge Cells Eosinophilia # Basophilia # Toxic Granulation Dohle Bodies Patricia Rods Platelet Estimate Plt Morphology Comment RBC Morphology Polychromasia Hypochromasia Poikilocytosis Basophilic Stippling Anisocytosis Microcytosis Macrocytosis Spherocytes Sickle Cells Target Cells Tear Drop Cells Ovalocytes Stomatocytes [place] Bodies [place] Cells Bite Cells Acanthocytes (Spur) Rouleaux Schistocytes PT 29.2 H 16.5 H INR 2.7 1.3 APTT 46.4 H 32.3 Fibrinogen < 60 L* 160 L Sodium Potassium Chloride Carbon Dioxide Anion Gap BUN Creatinine Est GFR (MDRD) Af Amer Est GFR (MDRD) Non-Af BUN/Creatinine Ratio Glucose Calcium Magnesium Total Bilirubin AST ALT Alkaline Phosphatase Total Protein Albumin Globulin Albumin/Globulin Ratio Blood Type Antibody Screen Screen Baby's Blood Type Baby's SONDRA Crossmatch 09/23/17 09/23/17 09/23/17 00:30 06:40 06:40 WBC Cancelled Corrected WBC Cancelled RBC Cancelled Hgb Cancelled Hct Cancelled MCV Cancelled MCH Cancelled MCHC Cancelled RDW Cancelled RDW Differential Cancelled Plt Count Cancelled MPV Cancelled Immature Gran % (Auto) Cancelled Neut % (Auto) Cancelled Lymph % (Auto) Cancelled [place] % (Auto) Cancelled Eos % (Auto) Cancelled Baso % (Auto) Cancelled Immature Gran # (Auto) Cancelled Absolute Neuts (auto) Cancelled Absolute Lymphs (auto) Cancelled Absolute Monos (auto) Cancelled Total Counted Cancelled Neutrophils % (Manual) Cancelled Band Neutrophils % Cancelled Lymphocytes % (Manual) Cancelled Monocytes % (Manual) Cancelled Eosinophils % (Manual) Cancelled Basophils % (Manual) Cancelled Metamyelocytes % Cancelled Myelocytes % Cancelled Promyelocytes % Cancelled Blast Cells % Cancelled Plasma Cell % (Manual) Cancelled Other Cells % Cancelled Lymphocytes # Cancelled Nucleated RBCs/100 WBC Cancelled Differential Comment Cancelled Diff Path Review Cancelled Hypersegmented Neuts Cancelled Atypical Lymphocytes Cancelled Reactive Lymphocytes Cancelled Smudge Cells Cancelled Eosinophilia # Cancelled Basophilia # Cancelled Toxic Granulation Cancelled Dohle Bodies Cancelled Patricia Rods Cancelled Platelet Estimate Cancelled Plt Morphology Comment Cancelled RBC Morphology Cancelled Polychromasia Cancelled Hypochromasia Cancelled Poikilocytosis Cancelled Basophilic Stippling Cancelled Anisocytosis Cancelled Microcytosis Cancelled Macrocytosis Cancelled Spherocytes Cancelled Sickle Cells Cancelled Target Cells Cancelled Tear Drop Cells Cancelled Ovalocytes Cancelled Stomatocytes Cancelled [place] Bodies Cancelled [place] Cells Cancelled Bite Cells Cancelled Acanthocytes (Spur) Cancelled Rouleaux Cancelled Schistocytes Cancelled PT INR APTT Fibrinogen Sodium 137 Potassium 4.2 Chloride 105 Carbon Dioxide 21.0 Anion Gap 11 BUN 13 Creatinine 1.13 H Est GFR (MDRD) Af Amer 70 Est GFR (MDRD) Non-Af 58 L BUN/Creatinine Ratio 11.5 Glucose 90 Calcium 7.2 L Magnesium 1.4 L Total Bilirubin 0.50 AST 37 ALT 18 Alkaline Phosphatase 72 Total Protein 4.4 L Albumin 1.9 L Globulin 2.5 Albumin/Globulin Ratio 0.8 L Blood Type Antibody Screen Screen NEGATIVE Baby's Blood Type AB POSITIVE Baby's SONDRA NEGATIVE Crossmatch 09/23/17 07:55 WBC Corrected WBC RBC Hgb Hct MCV MCH MCHC RDW RDW Differential Plt Count MPV Immature Gran % (Auto) Neut % (Auto) Lymph % (Auto) [place] % (Auto) Eos % (Auto) Baso % (Auto) Immature Gran # (Auto) Absolute Neuts (auto) Absolute Lymphs (auto) Absolute Monos (auto) Total Counted Neutrophils % (Manual) Band Neutrophils % Lymphocytes % (Manual) Monocytes % (Manual) Eosinophils % (Manual) Basophils % (Manual) Metamyelocytes % Myelocytes % Promyelocytes % Blast Cells % Plasma Cell % (Manual) Other Cells % Lymphocytes # Nucleated RBCs/100 WBC Differential Comment Diff Path Review Hypersegmented Neuts Atypical Lymphocytes Reactive Lymphocytes Smudge Cells Eosinophilia # Basophilia # Toxic Granulation Dohle Bodies Patricia Rods Platelet Estimate Plt Morphology Comment RBC Morphology Polychromasia Hypochromasia Poikilocytosis Basophilic Stippling Anisocytosis Microcytosis Macrocytosis Spherocytes Sickle Cells Target Cells Tear Drop Cells Ovalocytes Stomatocytes [place] Bodies [place] Cells Bite Cells Acanthocytes (Spur) Rouleaux Schistocytes PT 15.0 H INR 1.2 APTT 28.4 Fibrinogen 273 Sodium Potassium Chloride Carbon Dioxide Anion Gap BUN Creatinine Est GFR (MDRD) Af Amer Est GFR (MDRD) Non-Af BUN/Creatinine Ratio Glucose Calcium Magnesium Total Bilirubin AST ALT Alkaline Phosphatase Total Protein Albumin Globulin Albumin/Globulin Ratio Blood Type Antibody Screen Screen Baby's Blood Type Baby's SONDRA Crossmatch Medical Necessity - Tobacco Use Smoking Status: Never smoker Assessment/Plan All Active Problems (Last Reviewed 09/10/17 @ 15:26 by Griselda Valera) 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 bakri balloon in place- dc at noon. additional dose of ancef given DIC- normalizing coagulation profile. gave additional unit ffp and cryo. await labs anemia secondary to acute blood loss- sp 2 units FFP, 1 unit cryo, hespan, crystalloid. transfused additional 3 units of RBCs, 1 unit FFP, 1 unit of cryo, and ordered a pack of platelets to be on standby. awaiting labs abdominal distension- suspect postop ileus, normalizing coagulation profile but clinically improving and stable, recommend ct abdomen pelvis
--- NOTE | 2017-09-23 09:13 | PN.OBGYN_ITS ---
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 bleeding stable. last unit of cryo going- recommend checking labs now patient seen at 730 am- had difficulty drawing labs but they have been sent now , distension is slightly less but still prominent, has increased bowel sounds now, softer abdomen, but stringer machine tender. no CP SOB NV - Physical Exam General: Alert, No apparent distress Lungs: Clear to auscultation, Normal air movement Cardiovascular: Regular rate, Regular Rhythm, No murmurs Abdomen: Bowel Sounds Present, Soft, Distended, Tender Skin: No rashes, No breakdown Psych/Mental Status: Normal Affect, Appropriate Vital Signs Temp Pulse Resp BP Pulse Ox 99.7 F H 90 18 105/66 100 09/23/17 08:19 09/23/17 08:19 09/23/17 08:19 09/23/17 08:19 09/23/17 08:19 Oxygen Delivery Method Room Air Weight: 205 lb Body Mass Index (BMI) 30.2 Intake and Output for Last 24 Hours 09/21/17 09/22/17 09/23/17 23:59 23:59 23:59 Intake Total 5312 / 5312 3840 / 3840 Output Total 775 / 775 1775 / 1775 Balance 4537 / 4537 2065 / 2065 Laboratory Tests Past 24 Hrs 09/22/17 09/22/17 09/22/17 07:50 07:50 07:50 WBC Corrected WBC RBC Hgb Hct MCV MCH MCHC RDW RDW Differential Plt Count MPV Immature Gran % (Auto) Neut % (Auto) Lymph % (Auto) Power % (Auto) Eos % (Auto) Baso % (Auto) Immature Gran # (Auto) Absolute Neuts (auto) Absolute Lymphs (auto) Absolute Monos (auto) Total Counted Neutrophils % (Manual) Band Neutrophils % Lymphocytes % (Manual) Monocytes % (Manual) Eosinophils % (Manual) Basophils % (Manual) Metamyelocytes % Myelocytes % Promyelocytes % Blast Cells % Plasma Cell % (Manual) Other Cells % Lymphocytes # Nucleated RBCs/100 WBC Differential Comment Diff Path Review Hypersegmented Neuts Atypical Lymphocytes Reactive Lymphocytes Smudge Cells Eosinophilia # Basophilia # Toxic Granulation Dohle Bodies Patricia Rods Platelet Estimate Plt Morphology Comment RBC Morphology Polychromasia Hypochromasia Poikilocytosis Basophilic Stippling Anisocytosis Microcytosis Macrocytosis Spherocytes Sickle Cells Target Cells Tear Drop Cells Ovalocytes Stomatocytes Mac-[place] Bodies [place] Cells Bite Cells Acanthocytes (Spur) Rouleaux Schistocytes PT INR APTT Fibrinogen Sodium Potassium Chloride Carbon Dioxide Anion Gap BUN Creatinine Est GFR (MDRD) Af Amer Est GFR (MDRD) Non-Af BUN/Creatinine Ratio Glucose Calcium Magnesium Total Bilirubin AST ALT Alkaline Phosphatase Total Protein Albumin Globulin Albumin/Globulin Ratio Blood Type B NEGATIVE Antibody Screen NEGATIVE Screen Baby's Blood Type Baby's SONDRA Crossmatch See Detail See Detail 09/22/17 09/22/17 09/22/17 14:50 14:50 16:40 WBC 20.6 H 20.8 H Corrected WBC RBC 3.24 L 2.74 L Hgb 10.0 L 8.2 L Hct 29.3 L 25.0 L MCV 90.4 91.2 MCH 30.9 29.9 MCHC 34.1 32.8 RDW 12.8 12.8 RDW Differential 40.9 41.2 Plt Count 159 192 MPV 10.8 10.9 Immature Gran % (Auto) 0.300 0.600 Neut % (Auto) 89.9 H 85.6 H Lymph % (Auto) 5.8 L 6.0 L Power % (Auto) 3.5 7.6 Eos % (Auto) 0.4 0.1 Baso % (Auto) 0.1 0.1 Immature Gran # (Auto) Absolute Neuts (auto) 18.5 H 17.8 H Absolute Lymphs (auto) 1.20 1.24 Absolute Monos (auto) Total Counted Not Reportable Not Reportable Neutrophils % (Manual) Band Neutrophils % Lymphocytes % (Manual) Monocytes % (Manual) Eosinophils % (Manual) Basophils % (Manual) Metamyelocytes % Myelocytes % Promyelocytes % Blast Cells % Plasma Cell % (Manual) Other Cells % Lymphocytes # Nucleated RBCs/100 WBC Differential Comment SCANNED Diff Path Review Hypersegmented Neuts Atypical Lymphocytes Reactive Lymphocytes Smudge Cells Eosinophilia # Basophilia # Toxic Granulation Dohle Bodies Patricia Rods Platelet Estimate Plt Morphology Comment RBC Morphology Polychromasia Hypochromasia Poikilocytosis Basophilic Stippling Anisocytosis Microcytosis Macrocytosis Spherocytes Sickle Cells Target Cells Tear Drop Cells Ovalocytes Stomatocytes Mac-St[place] Bodies [place] Cells Bite Cells Acanthocytes (Spur) Rouleaux Schistocytes PT 21.3 H INR 1.8 APTT 64.9 H Fibrinogen 69 L* Sodium Potassium Chloride Carbon Dioxide Anion Gap BUN Creatinine Est GFR (MDRD) Af Amer Est GFR (MDRD) Non-Af BUN/Creatinine Ratio Glucose Calcium Magnesium Total Bilirubin AST ALT Alkaline Phosphatase Total Protein Albumin Globulin Albumin/Globulin Ratio Blood Type Antibody Screen Screen Baby's Blood Type Baby's SONDRA Crossmatch 09/22/17 09/23/17 09/23/17 16:40 00:30 00:30 WBC 15.1 H Corrected WBC RBC 1.86 L Hgb 5.5 L* Hct 16.1 L MCV 86.6 MCH 29.6 MCHC 34.2 RDW 13.6 RDW Differential 43.3 Plt Count 78 L MPV 10.5 Immature Gran % (Auto) 0.100 Neut % (Auto) 82.9 H Lymph % (Auto) 6.3 L Power % (Auto) 10.6 H Eos % (Auto) 0.0 Baso % (Auto) 0.1 Immature Gran # (Auto) Absolute Neuts (auto) 12.5 H Absolute Lymphs (auto) 0.95 Absolute Monos (auto) Total Counted Not Reportable Neutrophils % (Manual) Band Neutrophils % Lymphocytes % (Manual) Monocytes % (Manual) Eosinophils % (Manual) Basophils % (Manual) Metamyelocytes % Myelocytes % Promyelocytes % Blast Cells % Plasma Cell % (Manual) Other Cells % Lymphocytes # Nucleated RBCs/100 WBC Differential Comment SCANNED Diff Path Review May foll Hypersegmented Neuts Atypical Lymphocytes Reactive Lymphocytes Smudge Cells Eosinophilia # Basophilia # Toxic Granulation Dohle Bodies Patricia Rods Platelet Estimate Plt Morphology Comment RBC Morphology Polychromasia Hypochromasia Poikilocytosis Basophilic Stippling Anisocytosis Microcytosis Macrocytosis Spherocytes Sickle Cells Target Cells Tear Drop Cells Ovalocytes Stomatocytes Mac-St. Leon Bodies [place] Cells Bite Cells Acanthocytes (Spur) Rouleaux Schistocytes PT 29.2 H 16.5 H INR 2.7 1.3 APTT 46.4 H 32.3 Fibrinogen < 60 L* 160 L Sodium Potassium Chloride Carbon Dioxide Anion Gap BUN Creatinine Est GFR (MDRD) Af Amer Est GFR (MDRD) Non-Af BUN/Creatinine Ratio Glucose Calcium Magnesium Total Bilirubin AST ALT Alkaline Phosphatase Total Protein Albumin Globulin Albumin/Globulin Ratio Blood Type Antibody Screen Screen Baby's Blood Type Baby's SONDRA Crossmatch 09/23/17 09/23/17 09/23/17 00:30 06:40 06:40 WBC Cancelled Corrected WBC Cancelled RBC Cancelled Hgb Cancelled Hct Cancelled MCV Cancelled MCH Cancelled MCHC Cancelled RDW Cancelled RDW Differential Cancelled Plt Count Cancelled MPV Cancelled Immature Gran % (Auto) Cancelled Neut % (Auto) Cancelled Lymph % (Auto) Cancelled Power % (Auto) Cancelled Eos % (Auto) Cancelled Baso % (Auto) Cancelled Immature Gran # (Auto) Cancelled Absolute Neuts (auto) Cancelled Absolute Lymphs (auto) Cancelled Absolute Monos (auto) Cancelled Total Counted Cancelled Neutrophils % (Manual) Cancelled Band Neutrophils % Cancelled Lymphocytes % (Manual) Cancelled Monocytes % (Manual) Cancelled Eosinophils % (Manual) Cancelled Basophils % (Manual) Cancelled Metamyelocytes % Cancelled Myelocytes % Cancelled Promyelocytes % Cancelled Blast Cells % Cancelled Plasma Cell % (Manual) Cancelled Other Cells % Cancelled Lymphocytes # Cancelled Nucleated RBCs/100 WBC Cancelled Differential Comment Cancelled Diff Path Review Cancelled Hypersegmented Neuts Cancelled Atypical Lymphocytes Cancelled Reactive Lymphocytes Cancelled Smudge Cells Cancelled Eosinophilia # Cancelled Basophilia # Cancelled Toxic Granulation Cancelled Dohle Bodies Cancelled Patricia Rods Cancelled Platelet Estimate Cancelled Plt Morphology Comment Cancelled RBC Morphology Cancelled Polychromasia Cancelled Hypochromasia Cancelled Poikilocytosis Cancelled Basophilic Stippling Cancelled Anisocytosis Cancelled Microcytosis Cancelled Macrocytosis Cancelled Spherocytes Cancelled Sickle Cells Cancelled Target Cells Cancelled Tear Drop Cells Cancelled Ovalocytes Cancelled Stomatocytes Cancelled Mac-St. Leon Bodies Cancelled [place] Cells Cancelled Bite Cells Cancelled Acanthocytes (Spur) Cancelled Rouleaux Cancelled Schistocytes Cancelled PT INR APTT Fibrinogen Sodium 137 Potassium 4.2 Chloride 105 Carbon Dioxide 21.0 Anion Gap 11 BUN 13 Creatinine 1.13 H Est GFR (MDRD) Af Amer 70 Est GFR (MDRD) Non-Af 58 L BUN/Creatinine Ratio 11.5 Glucose 90 Calcium 7.2 L Magnesium 1.4 L Total Bilirubin 0.50 AST 37 ALT 18 Alkaline Phosphatase 72 Total Protein 4.4 L Albumin 1.9 L Globulin 2.5 Albumin/Globulin Ratio 0.8 L Blood Type Antibody Screen Screen NEGATIVE Baby's Blood Type AB POSITIVE Baby's SONDRA NEGATIVE Crossmatch 09/23/17 07:55 WBC Corrected WBC RBC Hgb Hct MCV MCH MCHC RDW RDW Differential Plt Count MPV Immature Gran % (Auto) Neut % (Auto) Lymph % (Auto) Power % (Auto) Eos % (Auto) Baso % (Auto) Immature Gran # (Auto) Absolute Neuts (auto) Absolute Lymphs (auto) Absolute Monos (auto) Total Counted Neutrophils % (Manual) Band Neutrophils % Lymphocytes % (Manual) Monocytes % (Manual) Eosinophils % (Manual) Basophils % (Manual) Metamyelocytes % Myelocytes % Promyelocytes % Blast Cells % Plasma Cell % (Manual) Other Cells % Lymphocytes # Nucleated RBCs/100 WBC Differential Comment Diff Path Review Hypersegmented Neuts Atypical Lymphocytes Reactive Lymphocytes Smudge Cells Eosinophilia # Basophilia # Toxic Granulation Dohle Bodies Patricia Rods Platelet Estimate Plt Morphology Comment RBC Morphology Polychromasia Hypochromasia Poikilocytosis Basophilic Stippling Anisocytosis Microcytosis Macrocytosis Spherocytes Sickle Cells Target Cells Tear Drop Cells Ovalocytes Stomatocytes Mac-St. [place] Bodies [place] Cells Bite Cells Acanthocytes (Spur) Rouleaux Schistocytes PT 15.0 H INR 1.2 APTT 28.4 Fibrinogen 273 Sodium Potassium Chloride Carbon Dioxide Anion Gap BUN Creatinine Est GFR (MDRD) Af Amer Est GFR (MDRD) Non-Af BUN/Creatinine Ratio Glucose Calcium Magnesium Total Bilirubin AST ALT Alkaline Phosphatase Total Protein Albumin Globulin Albumin/Globulin Ratio Blood Type Antibody Screen Screen Baby's Blood Type Baby's SONDRA Crossmatch Medical Necessity - Tobacco Use Smoking Status: Never smoker Assessment/Plan All Active Problems (Last Reviewed 09/10/17 @ 15:26 by Griselda Valera) 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 bakri balloon in place- dc at noon. additional dose of ancef given DIC- normalizing coagulation profile. gave additional unit ffp and cryo. await labs anemia secondary to acute blood loss- sp 2 units FFP, 1 unit cryo, hespan, crystalloid. transfused additional 3 units of RBCs, 1 unit FFP, 1 unit of cryo , and ordered a pack of platelets to be on standby. awaiting labs abdominal distension- suspect postop ileus, normalizing coagulation profile but clinically improving and stable, recommend ct abdomen pelvis
--- NOTE | 2017-09-23 09:23 | CT_ITS ---
STUDY: CT ABDOMEN AND PELVIS WITH CONTRAST REASON FOR EXAM: Female, 37 years old. Abdominal distention and pain post emergency section with hemorrhage, stabilizing DIC, and multiple blood transfusions. RADIATION DOSAGE (If Supplied By Facility): CTDIvol = ( 19.71 ) mGy, DLP = ( 2159.69 ) mGycm TECHNIQUE: Transaxial images were obtained from the dome of the diaphragm to the symphysis pubis with oral contrast. 100mL ml of Isovue 300 contrast was administered. Sagittal and coronal images were reconstructed. Individualized dose optimization techniques were used for this CT. COMPARISON: 2 portable AP views of the abdomen and pelvis September 22, 2017. FINDINGS: Mild subsegmental atelectasis and trace pleural effusion seen in the posterior lung bases. The heart size is normal. There is a small pericardial effusion, measuring up to 7 mm thickness posteriorly. Elongated left lobe of liver extends into the anterolateral left upper quadrant. No demonstrated focal hepatic mass. The patent portal vein diameter is 14 mm. Normal gallbladder and extrahepatic biliary system. Normal spleen. Normal pancreas. Normal bilateral adrenal glands. There is mild to moderate right hydroureteronephrosis down to compression of the distal ureter by the enlarged uterus. There is mild left hydroureteronephrosis. Normal visualized stomach. Normal small intestine. Normal colon. There is non-visualization of the appendix. There is small volume ascites. There is very small volume free gas along the anterior margin of the dome of the liver. Normal abdominal aorta. Normal inferior vena cava. The urinary bladder is collapsed around a العلي catheter. Hemostasis balloon in the vagina is inflated to 8 x 7.95 x 9.3 cm. The anteverted uterus is enlarged, consistent with patient's recent status. The endometrial density is mildly heterogeneous, and there is heterogeneous density in the anterior lower uterine segment consistent with a history of section. 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 The right gonadal vein is dilated 8.5 mm, while the left gonadal vein is 7 mm. There is ill-defined stranding and occasional nodularity in the subcutis tissues of the low anterior abdominal wall, presumably reflecting changes of recent surgical incision. Scattered gas bubbles are seen in the subcutaneous tissues of the low anterior abdominal wall, extending into the planes around the rectus muscles and along the right inguinal tissues into the lower right retroperitoneum. Normal osseous structures. CT/Abdomen/Pelvis WITH Contrast IMPRESSION: 1. Status post section, there are postsurgical changes in the subcutaneous and deeper tissues of the anterior abdominal wall. Gas bubbles also extend along the right inguinal tissues into the lower right retroperitoneum. 2. The uterus is enlarged, consistent with the patient's recent status, and there is ill-defined density in the anterior image of the lower uterine segment, consistent with section. The endometrial density is irregular and heterogeneous, also consistent with the patient's recent status. Hemostasis balloon is inflated in the vagina. The parametrial veins and gonadal veins are engorged. 3. There is small volume ascites. There is minimal free gas along the anterior margin of the dome of the liver. 4. There is mild to moderate hydroureteronephrosis down to compression of the distal ureters by the enlarged uterus. The urinary bladder is collapsed around a العلي catheter. 5. No sign of bowel obstruction. The appendix is not visualized. 6. Small pericardial effusion, measuring up to 7 mm in thickness posteriorly. Electronically Signed: Demarcus Johnson MD at 12:57 EDT , Service support ,
[2017-09-23 09:24] LABS: Absolute Lymphocyte Count 1.41 X10^3/ul (0.83-4.51); Absolute Neutrophil Count 8.7 X10^3/uL (2.0-7.7); Eosinophil# 0.02 X10^3/uL; Eosinophils% 0.2 % (0-5); Hematocrit 21.8 % (37-47); Hemoglobin 7.7 g/dl (12.0-15.0); Lymphocyte # 1.41 X10^3/ul (4.0); Lymphocyte % 12.6 % (19-41); Mean Corp Hgb Conc 35.3 g/gl (32-36); Mean Corpuscular Hgb 30.1 pg (27.0-32.0); Mean Corpuscular Volume 85.2 fL (81-99); Mean Platelet Vol. 9.5 fl (6.2-12.0); Monocyte# 1.06 X10^3/uL; Monocyte% 9.4 % (0-10); Neutrophil # 8.72 X10^3/uL (2.7-7.7); Neutrophil % 77.6 % (47-70); Platelet Count 55 K/mm3 (150-450); RBC Distribution Width SD 43.1 fl (35.1-43.9); Red Blood Count 2.56 M/mm3 (4.2-5.4); White Blood Count 11.2 K/mm3 (4.4-11.0)
[2017-09-23 09:26] LABS: POSITIVE COUNT NO; POSITIVE DIFFERENTIAL NO; POSITIVE MORPHOLOGY NO
--- NOTE | 2017-09-23 10:32 | NURSING ---
0930 DR. EELNA CALLED WITH LAB RESULTS PER Sofia BECERRA. PLATELETS ORDERED, AWAITING PLATELETS, LAB AWARE. PLATELETS TO BE GIVEN UPON ARRIVAL. AT 1000 CT CONTRAST ARRIVED AND STARTED. AT 1005 DR. HAZEL AT BEDSIDE SPEAKING WITH PATIENT PER CONSULT ORDER BY DR. ELENA. BAKRI IN PLACE AND INTACT, DRESSING DRY AND INTACT. PATIENT DID INCENTIVE SPIROMETER.
--- NOTE | 2017-09-23 11:40 | CON.PCM_ITS ---
Problem List (1) Velamentous insertion of umbilical cord in third trimester Status: Acute (2) hemorrhage Status: Acute Qualifiers: hemorrhage type: coagulation defects Qualified Code(s): O72.3 - coagulation defects (3) Anemia associated with acute blood loss Status: Acute (4) Uterine size-date discrepancy in third trimester Status: Acute Comment: discussed favorable cervix recommend IOL, plan IOL 40 weeks 91%ile, expectant management, discussed IOL if favorable, discussed primary cs if EFW 5000g (5) Rh negative status during Status: Acute Qualifiers: Comment: Had rhogam at 20 weeks, repeat at 32 weeks Reason for Consult Date of Consultation: 09/23/17 Reason for Consultation: Coagulopathy History of Present Illness: The patient is a 37 year old, G1, P1 female, with past medical history listed below who presented to [facility] on 09/22/2017 secondary to expectant delivery of a large for gestational age . Patient had received epidural anesthesia and underwent AROM notable for clear fluid. Approximately 10 minutes later, patient had terminal bradycardia and was therefore taken for a stat . Patient was taken to recovery in stable condition with an estimated blood loss of 900 mL. A complicated course was noted and this was personally reviewed with Dr. Meade. There was some concern for patient's decreased fibrinogen and ongoing bleeding. Patient was treated with blood products, but persisted in having decreased blood counts, so consult was obtained. Patient has had abdominal distention. Ultrasound at approximately 3:00 this morning did not show any acute hemorrhage. Plain x-ray had showed possible ileus. In total, patient has received 4 units of packed red blood cells, 4 units of FFP and 2 units of cryoprecipitate. Patient is reporting abdominal pain, especially with movement, but no other orthostatic type symptoms. Patient has not been out of bed. Bedside nurse reports patient has had decreased bleeding recently. Patient denies any nausea at this time. Patient denies any shortness of breath. No bruising noted from patient's IV sites. Patient has received an additional dose of Ancef postoperatively. Patient has had platelets ordered, but compatibility has been an issue and these have yet to be transfused. Patient reports she is relatively healthy at baseline. Patient denies any history of breathing complications in the past such as asthma. Patient's mother is at the bedside and denies any family history of coagulopathy or thrombophilia. Patient has not received blood products in the past. She is not reporting any flatus or bowel movements at this time. Past Medical History Medical History: Medical History (Last Reviewed 09/10/17 @ 15:26 by Griselda Valera) Frequent headaches R51 Migraines G43.909 Allergies Sulfa (Sulfonamide Antibiotics) Allergy (Mild, Verified 09/22/17 07:42) Unknown Home Medications: Ambulatory Orders Medication Instructions Recorded 1 tab PO QDAY 03/27/17 vitamin,calcium,[id number] acid tablet Surgical History: Surgical History (Last Reviewed 09/10/17 @ 15:26 by Griselda Valera) left shoulder surgery Smoking Status: Never smoker Alcohol: None Review of Systems Comment: See HPI, otherwise negative ?10 systems. 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 (Acute) hemorrhage (Acute) Anemia associated with acute blood loss (Acute) DIC (disseminated intravascular coagulation) (Acute) Objective: All imaging was personally reviewed. Abdominal x-ray does show a nonspecific gas pattern without free air. CT scan of the abdomen has been ordered, but has not been completed at the time of my evaluation. - Physical Exam General: Alert, Oriented x3, Cooperative, No apparent distress, - - Appears stated age. Speaking in full sentences. No accessory muscle use noted. HEENT: Atraumatic, PERRLA, EOMI, Normocephalic, - - Slightly pale conjunctival. No scleral icterus or injection noted. Oral: Moist Mucosa, No Gingival or Mucosal Lesions/ Ulcerations Neck: Supple, No JVD, No Nodes, Trachea Midline Lungs: Clear to auscultation, Normal air movement, No rhonchi, No wheeze, No rales Cardiovascular: Normal S1, Normal S2, No murmurs, No rub noted, No Gallop, Tachycardic Abdomen: Soft, Hypoactive Bowel Sounds, Distended, - - No rebound tenderness. No ecchymosis around the incision site. Extremities: No clubbing, No cyanosis, No edema, Capillary Refill Less than 3 Seconds Skin: Incision - Clean, dry and intact. Musculoskeletal: No Tenderness to Palpation of Joints or Extremities, No Muscle Wasting Lymphatic: No Cervical, Supraclavicular, or Inguinal Adenopathy Neurological: Cranial nerves II-XII grossly intact, Neuro grossly intact, Motor Exam 5/5 strength throughout Psych/Mental Status: Alert and oriented to time, place, person, mood and affect Vital Signs Temp Pulse Resp BP Pulse Ox 37.5 C H 100 18 116/69 100 09/23/17 11:27 09/23/17 11:27 09/23/17 11:27 09/23/17 11:27 09/23/17 11:27 Oxygen Delivery Method Room Air Weight: 92.986 kg Body Mass Index (BMI) 30.2 Intake and Output for Last 24 Hours 09/21/17 09/22/17 09/23/17 23:59 23:59 23:59 Intake Total 5312 / 5312 3840 / 3840 Output Total 775 / 775 3200 / 3200 Balance 4537 / 4537 640 / 640 Laboratory Tests Past 24 Hrs 09/22/17 09/22/17 09/22/17 07:50 07:50 14:50 WBC 20.6 H Corrected WBC RBC 3.24 L Hgb 10.0 L Hct 29.3 L MCV 90.4 MCH 30.9 MCHC 34.1 RDW 12.8 RDW Differential 40.9 Plt Count 159 MPV 10.8 Immature Gran % (Auto) 0.300 Neut % (Auto) 89.9 H Lymph % (Auto) 5.8 L [place] % (Auto) 3.5 Eos % (Auto) 0.4 Baso % (Auto) 0.1 Immature Gran # (Auto) Absolute Neuts (auto) 18.5 H Absolute Lymphs (auto) 1.20 Absolute Monos (auto) Total Counted Not Reportable Neutrophils % (Manual) Band Neutrophils % Lymphocytes % (Manual) Monocytes % (Manual) Eosinophils % (Manual) Basophils % (Manual) Metamyelocytes % Myelocytes % Promyelocytes % Blast Cells % Plasma Cell % (Manual) Other Cells % Lymphocytes # Nucleated RBCs/100 WBC Differential Comment Diff Path Review Hypersegmented Neuts Atypical Lymphocytes Reactive Lymphocytes Smudge Cells Eosinophilia # Basophilia # Toxic Granulation Dohle Bodies Patricia Rods Platelet Estimate Plt Morphology Comment RBC Morphology Polychromasia Hypochromasia Poikilocytosis Basophilic Stippling Anisocytosis Microcytosis Macrocytosis Spherocytes Sickle Cells Target Cells Tear Drop Cells Ovalocytes Stomatocytes [place] Bodies [place] Cells Bite Cells Acanthocytes (Spur) Rouleaux Schistocytes PT INR APTT Fibrinogen Sodium Potassium Chloride Carbon Dioxide Anion Gap BUN Creatinine Est GFR (MDRD) Af Amer Est GFR (MDRD) Non-Af BUN/Creatinine Ratio Glucose Calcium Magnesium Total Bilirubin AST ALT Alkaline Phosphatase Total Protein Albumin Globulin Albumin/Globulin Ratio Screen Baby's Blood Type Baby's SONDRA Crossmatch See Detail See Detail 09/22/17 09/22/17 09/22/17 14:50 16:40 16:40 WBC 20.8 H Corrected WBC RBC 2.74 L Hgb 8.2 L Hct 25.0 L MCV 91.2 MCH 29.9 MCHC 32.8 RDW 12.8 RDW Differential 41.2 Plt Count 192 MPV 10.9 Immature Gran % (Auto) 0.600 Neut % (Auto) 85.6 H Lymph % (Auto) 6.0 L [place] % (Auto) 7.6 Eos % (Auto) 0.1 Baso % (Auto) 0.1 Immature Gran # (Auto) Absolute Neuts (auto) 17.8 H Absolute Lymphs (auto) 1.24 Absolute Monos (auto) Total Counted Not Reportable Neutrophils % (Manual) Band Neutrophils % Lymphocytes % (Manual) Monocytes % (Manual) Eosinophils % (Manual) Basophils % (Manual) Metamyelocytes % Myelocytes % Promyelocytes % Blast Cells % Plasma Cell % (Manual) Other Cells % Lymphocytes # Nucleated RBCs/100 WBC Differential Comment SCANNED Diff Path Review Hypersegmented Neuts Atypical Lymphocytes Reactive Lymphocytes Smudge Cells Eosinophilia # Basophilia # Toxic Granulation Dohle Bodies Patricia Rods Platelet Estimate Plt Morphology Comment RBC Morphology Polychromasia Hypochromasia Poikilocytosis Basophilic Stippling Anisocytosis Microcytosis Macrocytosis Spherocytes Sickle Cells Target Cells Tear Drop Cells Ovalocytes Stomatocytes [place] Bodies [place] Cells Bite Cells Acanthocytes (Spur) Rouleaux Schistocytes PT 21.3 H 29.2 H INR 1.8 2.7 APTT 64.9 H 46.4 H Fibrinogen 69 L* < 60 L* Sodium Potassium Chloride Carbon Dioxide Anion Gap BUN Creatinine Est GFR (MDRD) Af Amer Est GFR (MDRD) Non-Af BUN/Creatinine Ratio Glucose Calcium Magnesium Total Bilirubin AST ALT Alkaline Phosphatase Total Protein Albumin Globulin Albumin/Globulin Ratio Screen Baby's Blood Type Baby's SONDRA Crossmatch 09/23/17 09/23/17 09/23/17 00:30 00:30 00:30 WBC 15.1 H Corrected WBC RBC 1.86 L Hgb 5.5 L* Hct 16.1 L MCV 86.6 MCH 29.6 MCHC 34.2 RDW 13.6 RDW Differential 43.3 Plt Count 78 L MPV 10.5 Immature Gran % (Auto) 0.100 Neut % (Auto) 82.9 H Lymph % (Auto) 6.3 L [place] % (Auto) 10.6 H Eos % (Auto) 0.0 Baso % (Auto) 0.1 Immature Gran # (Auto) Absolute Neuts (auto) 12.5 H Absolute Lymphs (auto) 0.95 Absolute Monos (auto) Total Counted Not Reportable Neutrophils % (Manual) Band Neutrophils % Lymphocytes % (Manual) Monocytes % (Manual) Eosinophils % (Manual) Basophils % (Manual) Metamyelocytes % Myelocytes % Promyelocytes % Blast Cells % Plasma Cell % (Manual) Other Cells % Lymphocytes # Nucleated RBCs/100 WBC Differential Comment SCANNED Diff Path Review May foll Hypersegmented Neuts Atypical Lymphocytes Reactive Lymphocytes Smudge Cells Eosinophilia # Basophilia # Toxic Granulation Dohle Bodies Patricia Rods Platelet Estimate Plt Morphology Comment RBC Morphology Polychromasia Hypochromasia Poikilocytosis Basophilic Stippling Anisocytosis Microcytosis Macrocytosis Spherocytes Sickle Cells Target Cells Tear Drop Cells Ovalocytes Stomatocytes [place] Bodies [place] Cells Bite Cells Acanthocytes (Spur) Rouleaux Schistocytes PT 16.5 H INR 1.3 APTT 32.3 Fibrinogen 160 L Sodium Potassium Chloride Carbon Dioxide Anion Gap BUN Creatinine Est GFR (MDRD) Af Amer Est GFR (MDRD) Non-Af BUN/Creatinine Ratio Glucose Calcium Magnesium Total Bilirubin AST ALT Alkaline Phosphatase Total Protein Albumin Globulin Albumin/Globulin Ratio Screen NEGATIVE Baby's Blood Type AB POSITIVE Baby's SONDRA NEGATIVE Crossmatch 09/23/17 09/23/17 09/23/17 06:40 06:40 07:55 WBC Cancelled Corrected WBC Cancelled RBC Cancelled Hgb Cancelled Hct Cancelled MCV Cancelled MCH Cancelled MCHC Cancelled RDW Cancelled RDW Differential Cancelled Plt Count Cancelled MPV Cancelled Immature Gran % (Auto) Cancelled Neut % (Auto) Cancelled Lymph % (Auto) Cancelled [place] % (Auto) Cancelled Eos % (Auto) Cancelled Baso % (Auto) Cancelled Immature Gran # (Auto) Cancelled Absolute Neuts (auto) Cancelled Absolute Lymphs (auto) Cancelled Absolute Monos (auto) Cancelled Total Counted Cancelled Neutrophils % (Manual) Cancelled Band Neutrophils % Cancelled Lymphocytes % (Manual) Cancelled Monocytes % (Manual) Cancelled Eosinophils % (Manual) Cancelled Basophils % (Manual) Cancelled Metamyelocytes % Cancelled Myelocytes % Cancelled Promyelocytes % Cancelled Blast Cells % Cancelled Plasma Cell % (Manual) Cancelled Other Cells % Cancelled Lymphocytes # Cancelled Nucleated RBCs/100 WBC Cancelled Differential Comment Cancelled Diff Path Review Cancelled Hypersegmented Neuts Cancelled Atypical Lymphocytes Cancelled Reactive Lymphocytes Cancelled Smudge Cells Cancelled Eosinophilia # Cancelled Basophilia # Cancelled Toxic Granulation Cancelled Dohle Bodies Cancelled Patricia Rods Cancelled Platelet Estimate Cancelled Plt Morphology Comment Cancelled RBC Morphology Cancelled Polychromasia Cancelled Hypochromasia Cancelled Poikilocytosis Cancelled Basophilic Stippling Cancelled Anisocytosis Cancelled Microcytosis Cancelled Macrocytosis Cancelled Spherocytes Cancelled Sickle Cells Cancelled Target Cells Cancelled Tear Drop Cells Cancelled Ovalocytes Cancelled Stomatocytes Cancelled [place] Bodies Cancelled [place] Cells Cancelled Bite Cells Cancelled Acanthocytes (Spur) Cancelled Rouleaux Cancelled Schistocytes Cancelled PT 15.0 H INR 1.2 APTT 28.4 Fibrinogen 273 Sodium 137 Potassium 4.2 Chloride 105 Carbon Dioxide 21.0 Anion Gap 11 BUN 13 Creatinine 1.13 H Est GFR (MDRD) Af Amer 70 Est GFR (MDRD) Non-Af 58 L BUN/Creatinine Ratio 11.5 Glucose 90 Calcium 7.2 L Magnesium 1.4 L Total Bilirubin 0.50 AST 37 ALT 18 Alkaline Phosphatase 72 Total Protein 4.4 L Albumin 1.9 L Globulin 2.5 Albumin/Globulin Ratio 0.8 L Screen Baby's Blood Type Baby's SONDRA Crossmatch 09/23/17 09:05 WBC 11.2 H Corrected WBC RBC 2.56 L Hgb 7.7 L Hct 21.8 L MCV 85.2 MCH 30.1 MCHC 35.3 RDW 14.0 RDW Differential 43.1 Plt Count 55 L MPV 9.5 Immature Gran % (Auto) 0.200 Neut % (Auto) 77.6 H Lymph % (Auto) 12.6 L [place] % (Auto) 9.4 Eos % (Auto) 0.2 Baso % (Auto) 0.0 Immature Gran # (Auto) Absolute Neuts (auto) 8.7 H Absolute Lymphs (auto) 1.41 Absolute Monos (auto) Total Counted Not Reportable Neutrophils % (Manual) Band Neutrophils % Lymphocytes % (Manual) Monocytes % (Manual) Eosinophils % (Manual) Basophils % (Manual) Metamyelocytes % Myelocytes % Promyelocytes % Blast Cells % Plasma Cell % (Manual) Other Cells % Lymphocytes # Nucleated RBCs/100 WBC Differential Comment Diff Path Review Hypersegmented Neuts Atypical Lymphocytes Reactive Lymphocytes Smudge Cells Eosinophilia # Basophilia # Toxic Granulation Dohle Bodies Patricia Rods Platelet Estimate Plt Morphology Comment RBC Morphology Polychromasia Hypochromasia Poikilocytosis Basophilic Stippling Anisocytosis Microcytosis Macrocytosis Spherocytes Sickle Cells Target Cells Tear Drop Cells Ovalocytes Stomatocytes [place] Bodies [place] Cells Bite Cells Acanthocytes (Spur) Rouleaux Schistocytes PT INR APTT Fibrinogen Sodium Potassium Chloride Carbon Dioxide Anion Gap BUN Creatinine Est GFR (MDRD) Af Amer Est GFR (MDRD) Non-Af BUN/Creatinine Ratio Glucose Calcium Magnesium Total Bilirubin AST ALT Alkaline Phosphatase Total Protein Albumin Globulin Albumin/Globulin Ratio Screen Baby's Blood Type Baby's SONDRA Crossmatch Clinical Impression(s) from Imaging Studies KUB X-Ray 09/22/17 14:05 IMPRESSION: 1. Soft tissue fullness consistent with enlarged uterus arising from the pelvis. 2. No retained surgical segments. 3. The bowel gas pattern is nonspecific. Electronically Signed: Demarcus Johnson MD at 14:54 EDT , Service support , Assessment/Plan Active and Suspected Problems (Last Reviewed 09/10/17 @ 15:26 by Griselda Valera) Velamentous insertion of umbilical cord in third trimester (Acute) hemorrhage (Acute) Anemia associated with acute blood loss (Acute) DIC (disseminated intravascular coagulation) (Acute) RECOMMENDATIONS: 1. Transfuse platelets when available 2. Await CT of the abdomen 3. Repeat CBC and coagulation studies this afternoon 4. Transfuse PRBCs as necessary to keep hemoglobin greater than 7 5. Out of bed if tolerated and CT abdomen acceptable IMPRESSIONS: 1. Suspected consumptive coagulopathy secondary to acute blood loss anemia Patient was significant blood loss over the last 24 hours secondary to velamentous insertion of umbilical cord. Patient has received significant blood products over the last 24 hours. Patient does have mechanical tamponade in place at this time. Pathology review is not reporting any schistocytes. Patient does not have hemodynamic instability that would be expected with septic shock from bowel perforation. Await CT scan of the abdomen for occult bleeding. Would recommend repeating CBC and coagulation studies this afternoon to ensure stability. Transfuse to keep hemoglobin greater than 7. Defer to OB on interventions related to CT scan findings. 2. Abdominal distention She did have an ultrasound overnight showing no significant hemorrhage. KUB appears to be consistent with possible ileus. CT scan of the abdomen has been ordered. Patient is not having any nausea or vomiting. Aspiration is not expected. Liver function studies were within normal limits, but albumin is depressed, likely secondary to blood losses and dilution secondary to Addendum 1433: Called emergently to patient's bedside at approximately 1:20 PM secondary to acute onset of tachycardia. Patient just had a CT scan of the abdomen that was relatively unremarkable for hemorrhage. Patient had been initiated on platelet therapy and had the uterine balloon removed. Approximately 10 minutes later, patient developed hypoxemia, tachycardia, rigors and tachypnea. Platelet transfusion was stopped immediately. EKG was obtained showing sinus tachycardia. Patient was then transferred to the intensive care unit. Chest x- ray showed no pulmonary edema, but patient was noted to have a temperature of 101?F. Patient had also received 50 mcg of fentanyl. TIME: 35 minutes critical care time spent addressing patient's sinus tachycardia, tachypnea, review of all data and collaboration with care team. (1:20 PM to 2: 40 PM) Code Visit 9xxxx: [id number] Critical care first hour
--- NOTE | 2017-09-23 11:45 | NURSING ---
[address] via bed per [facility] rn and Chart RN. 1230 Patient back to room via bed and tolerated CT scan well.
[2017-09-23] MEDS: 0.9% Saline Lock 10 ML Syringe IV (13:02)
[2017-09-23 13:55] LABS: Pathologist Review Reviewed
--- NOTE | 2017-09-23 14:00 | CASEMGMT ---
Social Work Note Labor and Delivery Unit All call for staff to patient's room today. Patient's mother, father, and [id number] out in the hallway outside of patient's room. Patient's mother voicing worry for patient and wanting to know what is happening. jig worker presented to patient's room, received update from staff. Touched base with patient's , reintroduced self and role at hospital. sitting on couch, with baby in crib at 's side. This senior underwriter spoke to patient briefly and asked if it is okay to give family updates, as family is asking. Patient stated yes. This senior underwriter updated family members out in the hallway, offering reassurance, normalization of this being a stressful time from the labor process to the recovery. This senior underwriter also checked in on patient's to see how doing, as the had stepped out of the room with the baby. and family express this has been stressful, with multiple staff coming to assist patient multiple times and trying to determine what is the cause of patient's medical issues. Supportive encouragement offered. Note, the patient's mother wanted medical staff to know that patient's mother has a history of a prolonged QT, as patient's mother reports worry patient has not communicated this to healthcare providers and thought that this may be important family medical history to pass on. This senior underwriter informed Kanchan RINCON as well as Dr. Montalvo directly of the family's voiced concerns and reports of family medical history. The family did follow up with this senior underwriter to see if this senior underwriter passed the information along to medical providers. Assured that did follow through with family's request and concerns. Decision made by medical staff to transfer patient to the ICU for further care. Patient's and patient's mother both have baby bands to be able to provide care to baby on the labor and delivery unit, while patient is in the ICU. No reports or concerns from staff regarding any other needs for this family (such as baby supplies and community resources). Social work does remain available for support as needed or indicated during the hospital stay. -SOPHIE Ortega, DIRECTOR [employer]
--- NOTE | 2017-09-23 14:15 | RAD_ITS ---
STUDY: X-RAY CHEST REASON FOR EXAM: Female, 37 years old. Shortness of breath. TECHNIQUE: Single AP portable upright view of the chest. COMPARISON: None. FINDINGS: The lungs are clear, although under expanded. There is no demonstrated pleural abnormality. Normal size heart. Normal mediastinum and jannet. Normal visualized pulmonary arteries. Normal visualized aortic arch and descending thoracic aorta. Normal visualized thoracic spine. Normal visualized ribs, clavicles, and shoulders. There is no demonstrated abnormality of the visualized soft tissue structures of the upper abdomen. RAD/Chest 1 View (Portable) IMPRESSION: Suboptimal inspiratory effort. No pneumonic infiltrate or CHF. Electronically Signed: Demarcus Johnson MD at 14:50 EDT , Service support ,
--- NOTE | 2017-09-23 14:41 | PCM.PN.OB ---
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 platelets transfusing. ct abdomen pelvis shows no hemorrhage or hematoma, acute postop changes only. 10 minutes later patient developed acute episode of shortness of breath and chest pain, tachycardia into the 150s with initial drop in pulse ox to 91% and then bakc up to 100% on oxygen and retained saturation even after weaning off oxygen. patient remained painful and symptomatic, listless. evaluated by ICU attending and it was felt it was posisble to be a transfusion reaction or a PE. - Physical Exam General: - - uncomfortable, restless Lungs: Normal air movement, No rhonchi, No wheeze, No rales, Short of Breath Cardiovascular: Regular Rhythm, Tachycardic Abdomen: Soft, Distended, Tender, - - abdomen tender but soft, less distended than previously. fundus firm at umbilicus Vital Signs Temp Pulse Resp BP Pulse Ox 97.3 F L 148 H 20 H 105/60 100 09/23/17 12:55 09/23/17 14:25 09/23/17 12:55 09/23/17 12:55 09/23/17 12:55 Oxygen Delivery Method Room Air Weight: 205 lb Body Mass Index (BMI) 30.2 Intake and Output for Last 24 Hours 09/21/17 09/22/17 09/23/17 23:59 23:59 23:59 Intake Total 5312 / 5312 3840 / 3840 Output Total 775 / 775 3200 / 3200 Balance 4537 / 4537 640 / 640 Laboratory Tests Past 24 Hrs 09/22/17 09/22/17 09/22/17 07:50 07:50 14:50 WBC 20.6 H Corrected WBC RBC 3.24 L Hgb 10.0 L Hct 29.3 L MCV 90.4 MCH 30.9 MCHC 34.1 RDW 12.8 RDW Differential 40.9 Plt Count 159 MPV 10.8 Immature Gran % (Auto) 0.300 Neut % (Auto) 89.9 H Lymph % (Auto) 5.8 L [place] % (Auto) 3.5 Eos % (Auto) 0.4 Baso % (Auto) 0.1 Immature Gran # (Auto) Absolute Neuts (auto) 18.5 H Absolute Lymphs (auto) 1.20 Absolute Monos (auto) Total Counted Not Reportable Neutrophils % (Manual) Band Neutrophils % Lymphocytes % (Manual) Monocytes % (Manual) Eosinophils % (Manual) Basophils % (Manual) Metamyelocytes % Myelocytes % Promyelocytes % Blast Cells % Plasma Cell % (Manual) Other Cells % Lymphocytes # Nucleated RBCs/100 WBC Differential Comment Diff Path Review Hypersegmented Neuts Atypical Lymphocytes Reactive Lymphocytes Smudge Cells Eosinophilia # Basophilia # Toxic Granulation Dohle Bodies Patricia Rods Platelet Estimate Plt Morphology Comment RBC Morphology Polychromasia Hypochromasia Poikilocytosis Basophilic Stippling Anisocytosis Microcytosis Macrocytosis Spherocytes Sickle Cells Target Cells Tear Drop Cells Ovalocytes Stomatocytes Mac-Matteson Bodies [place] Cells Bite Cells Acanthocytes (Spur) Rouleaux Schistocytes PT INR APTT Fibrinogen Sodium Potassium Chloride Carbon Dioxide Anion Gap BUN Creatinine Est GFR (MDRD) Af Amer Est GFR (MDRD) Non-Af BUN/Creatinine Ratio Glucose Calcium Magnesium Total Bilirubin AST ALT Alkaline Phosphatase Total Protein Albumin Globulin Albumin/Globulin Ratio Screen Baby's Blood Type Baby's SONDRA Crossmatch See Detail See Detail 09/22/17 09/22/17 09/22/17 14:50 16:40 16:40 WBC 20.8 H Corrected WBC RBC 2.74 L Hgb 8.2 L Hct 25.0 L MCV 91.2 MCH 29.9 MCHC 32.8 RDW 12.8 RDW Differential 41.2 Plt Count 192 MPV 10.9 Immature Gran % (Auto) 0.600 Neut % (Auto) 85.6 H Lymph % (Auto) 6.0 L [place] % (Auto) 7.6 Eos % (Auto) 0.1 Baso % (Auto) 0.1 Immature Gran # (Auto) Absolute Neuts (auto) 17.8 H Absolute Lymphs (auto) 1.24 Absolute Monos (auto) Total Counted Not Reportable Neutrophils % (Manual) Band Neutrophils % Lymphocytes % (Manual) Monocytes % (Manual) Eosinophils % (Manual) Basophils % (Manual) Metamyelocytes % Myelocytes % Promyelocytes % Blast Cells % Plasma Cell % (Manual) Other Cells % Lymphocytes # Nucleated RBCs/100 WBC Differential Comment SCANNED Diff Path Review Hypersegmented Neuts Atypical Lymphocytes Reactive Lymphocytes Smudge Cells Eosinophilia # Basophilia # Toxic Granulation Dohle Bodies Patricia Rods Platelet Estimate Plt Morphology Comment RBC Morphology Polychromasia Hypochromasia Poikilocytosis Basophilic Stippling Anisocytosis Microcytosis Macrocytosis Spherocytes Sickle Cells Target Cells Tear Drop Cells Ovalocytes Stomatocytes Mac-Matteson Bodies [place] Cells Bite Cells Acanthocytes (Spur) Rouleaux Schistocytes PT 21.3 H 29.2 H INR 1.8 2.7 APTT 64.9 H 46.4 H Fibrinogen 69 L* < 60 L* Sodium Potassium Chloride Carbon Dioxide Anion Gap BUN Creatinine Est GFR (MDRD) Af Amer Est GFR (MDRD) Non-Af BUN/Creatinine Ratio Glucose Calcium Magnesium Total Bilirubin AST ALT Alkaline Phosphatase Total Protein Albumin Globulin Albumin/Globulin Ratio Screen Baby's Blood Type Baby's SONDRA Crossmatch 09/23/17 09/23/17 09/23/17 00:30 00:30 00:30 WBC 15.1 H Corrected WBC RBC 1.86 L Hgb 5.5 L* Hct 16.1 L MCV 86.6 MCH 29.6 MCHC 34.2 RDW 13.6 RDW Differential 43.3 Plt Count 78 L MPV 10.5 Immature Gran % (Auto) 0.100 Neut % (Auto) 82.9 H Lymph % (Auto) 6.3 L [place] % (Auto) 10.6 H Eos % (Auto) 0.0 Baso % (Auto) 0.1 Immature Gran # (Auto) Absolute Neuts (auto) 12.5 H Absolute Lymphs (auto) 0.95 Absolute Monos (auto) Total Counted Not Reportable Neutrophils % (Manual) Band Neutrophils % Lymphocytes % (Manual) Monocytes % (Manual) Eosinophils % (Manual) Basophils % (Manual) Metamyelocytes % Myelocytes % Promyelocytes % Blast Cells % Plasma Cell % (Manual) Other Cells % Lymphocytes # Nucleated RBCs/100 WBC Differential Comment SCANNED Diff Path Review Reviewed Hypersegmented Neuts Atypical Lymphocytes Reactive Lymphocytes Smudge Cells Eosinophilia # Basophilia # Toxic Granulation Dohle Bodies Patricia Rods Platelet Estimate Plt Morphology Comment RBC Morphology Polychromasia Hypochromasia Poikilocytosis Basophilic Stippling Anisocytosis Microcytosis Macrocytosis Spherocytes Sickle Cells Target Cells Tear Drop Cells Ovalocytes Stomatocytes Mac-Matteson Bodies [place] Cells Bite Cells Acanthocytes (Spur) Rouleaux Schistocytes PT 16.5 H INR 1.3 APTT 32.3 Fibrinogen 160 L Sodium Potassium Chloride Carbon Dioxide Anion Gap BUN Creatinine Est GFR (MDRD) Af Amer Est GFR (MDRD) Non-Af BUN/Creatinine Ratio Glucose Calcium Magnesium Total Bilirubin AST ALT Alkaline Phosphatase Total Protein Albumin Globulin Albumin/Globulin Ratio Screen NEGATIVE Baby's Blood Type AB POSITIVE Baby's SONDRA NEGATIVE Crossmatch 09/23/17 09/23/17 09/23/17 06:40 06:40 07:55 WBC Cancelled Corrected WBC Cancelled RBC Cancelled Hgb Cancelled Hct Cancelled MCV Cancelled MCH Cancelled MCHC Cancelled RDW Cancelled RDW Differential Cancelled Plt Count Cancelled MPV Cancelled Immature Gran % (Auto) Cancelled Neut % (Auto) Cancelled Lymph % (Auto) Cancelled [place] % (Auto) Cancelled Eos % (Auto) Cancelled Baso % (Auto) Cancelled Immature Gran # (Auto) Cancelled Absolute Neuts (auto) Cancelled Absolute Lymphs (auto) Cancelled Absolute Monos (auto) Cancelled Total Counted Cancelled Neutrophils % (Manual) Cancelled Band Neutrophils % Cancelled Lymphocytes % (Manual) Cancelled Monocytes % (Manual) Cancelled Eosinophils % (Manual) Cancelled Basophils % (Manual) Cancelled Metamyelocytes % Cancelled Myelocytes % Cancelled Promyelocytes % Cancelled Blast Cells % Cancelled Plasma Cell % (Manual) Cancelled Other Cells % Cancelled Lymphocytes # Cancelled Nucleated RBCs/100 WBC Cancelled Differential Comment Cancelled Diff Path Review Cancelled Hypersegmented Neuts Cancelled Atypical Lymphocytes Cancelled Reactive Lymphocytes Cancelled Smudge Cells Cancelled Eosinophilia # Cancelled Basophilia # Cancelled Toxic Granulation Cancelled Dohle Bodies Cancelled Patricia Rods Cancelled Platelet Estimate Cancelled Plt Morphology Comment Cancelled RBC Morphology Cancelled Polychromasia Cancelled Hypochromasia Cancelled Poikilocytosis Cancelled Basophilic Stippling Cancelled Anisocytosis Cancelled Microcytosis Cancelled Macrocytosis Cancelled Spherocytes Cancelled Sickle Cells Cancelled Target Cells Cancelled Tear Drop Cells Cancelled Ovalocytes Cancelled Stomatocytes Cancelled Mac-Matteson Bodies Cancelled [place] Cells Cancelled Bite Cells Cancelled Acanthocytes (Spur) Cancelled Rouleaux Cancelled Schistocytes Cancelled PT 15.0 H INR 1.2 APTT 28.4 Fibrinogen 273 Sodium 137 Potassium 4.2 Chloride 105 Carbon Dioxide 21.0 Anion Gap 11 BUN 13 Creatinine 1.13 H Est GFR (MDRD) Af Amer 70 Est GFR (MDRD) Non-Af 58 L BUN/Creatinine Ratio 11.5 Glucose 90 Calcium 7.2 L Magnesium 1.4 L Total Bilirubin 0.50 AST 37 ALT 18 Alkaline Phosphatase 72 Total Protein 4.4 L Albumin 1.9 L Globulin 2.5 Albumin/Globulin Ratio 0.8 L Screen Baby's Blood Type Baby's SONDRA Crossmatch 09/23/17 09:05 WBC 11.2 H Corrected WBC RBC 2.56 L Hgb 7.7 L Hct 21.8 L MCV 85.2 MCH 30.1 MCHC 35.3 RDW 14.0 RDW Differential 43.1 Plt Count 55 L MPV 9.5 Immature Gran % (Auto) 0.200 Neut % (Auto) 77.6 H Lymph % (Auto) 12.6 L [place] % (Auto) 9.4 Eos % (Auto) 0.2 Baso % (Auto) 0.0 Immature Gran # (Auto) Absolute Neuts (auto) 8.7 H Absolute Lymphs (auto) 1.41 Absolute Monos (auto) Total Counted Not Reportable Neutrophils % (Manual) Band Neutrophils % Lymphocytes % (Manual) Monocytes % (Manual) Eosinophils % (Manual) Basophils % (Manual) Metamyelocytes % Myelocytes % Promyelocytes % Blast Cells % Plasma Cell % (Manual) Other Cells % Lymphocytes # Nucleated RBCs/100 WBC Differential Comment Diff Path Review Hypersegmented Neuts Atypical Lymphocytes Reactive Lymphocytes Smudge Cells Eosinophilia # Basophilia # Toxic Granulation Dohle Bodies Patricia Rods Platelet Estimate Plt Morphology Comment RBC Morphology Polychromasia Hypochromasia Poikilocytosis Basophilic Stippling Anisocytosis Microcytosis Macrocytosis Spherocytes Sickle Cells Target Cells Tear Drop Cells Ovalocytes Stomatocytes Mac-Matteson Bodies [place] Cells Bite Cells Acanthocytes (Spur) Rouleaux Schistocytes PT INR APTT Fibrinogen Sodium Potassium Chloride Carbon Dioxide Anion Gap BUN Creatinine Est GFR (MDRD) Af Amer Est GFR (MDRD) Non-Af BUN/Creatinine Ratio Glucose Calcium Magnesium Total Bilirubin AST ALT Alkaline Phosphatase Total Protein Albumin Globulin Albumin/Globulin Ratio Screen Baby's Blood Type Baby's SONDRA Crossmatch Medical Necessity - Tobacco Use Smoking Status: Never smoker Assessment/Plan All Active Problems (Last Reviewed 09/10/17 @ 15:26 by Griselda Valera) 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 bakri balloon placed. additional dose of ancef given due to balloon in place. balloon removed. DIC- normalizing coagulation profile. gave additional unit ffp and cryo. await repeat labs per ICU management anemia secondary to acute blood loss- s/p 4 u RBCs, 3 units FFP 2 units cryo. attempted transfusion of platelets was aborted abdominal distension- ct abdomen pelvis unremarkable, likely postop changes with slow return of GI function possible transfusion reaction to platelets- transfusion stopped and monitoring in ICU. CXR done.
--- NOTE | 2017-09-23 14:46 | NURSING ---
1255 Platelets obtain as ordered per Dr Meade and initiated per [facility] RNand CHart RN 1300 Dr Meade in room to assess lochia and remove Bakri balloon. Balloon tamponade removed and patient tolerated well and lochia scant. FF u/u 1308 Pulse ox 91% Patient states chest pain and shortness of breath. Patient color pink and cramping pain noted and lochia scant with FF U/U BP 90/32 Temp 97.3 Resp 24 , Platelets stopped and iv flushed with Normal Saline , Oxygen at 2 l/m per nasal canula. 1310 staff assist button pushed and charge nurse called Dr Meade, Normal Saline Bolus being given , Rebreather mask placed , pulse ox 94 % and oxygen increased 10l/m , patient pulse 141, BP 91/50, 1320 Dr Juan Daniel Leonard and Dr Meade in room, Emergency equipment brought to room with additional staff , Lochia scant , patient continues with chest tightness and shortness of breath, pulse ox 100% 1325 Armando Hugger warmer placed on patient , Dr Montalvo in room and ordered stat EKG , 3 Lead EKG placed and sinus tachycardia noted [address] Montalvo at bedside and viewed BP 117/65 Resp 40 1330 Respirations 48, heart rate 154, BP 114/69 pulse ox at 98% , nasal canula reapplied and rebreather off and oxygen at 2l/m , Normal saline bolus stopped and Normal Saline changed to 100cc /hr , Family being assisted by [facility] case management coordinator outside of room 1331 BP 124/73 Heart rate 125 , Temp 97.9 , room air and pulse ox 100%, 1335 Heart rate 132 Respiration 38 pulse ox 98% on room air, Respiratory therapy Arsalna Son here and proceeding with EKG as ordered 1337 Respirations 25, Heart rate 139, BP 126/72 pulse ox 99% on room air, Dr Wong in room and patient has incisional pain and pain she is rating a 9 , lochia scant , Dr Montalvo ordered Fentanyl 50 mcg to be given by Dr Wong , decision made to transport patient to ICU per Dr Meade and Dr Montalvo 1340 50mcg of Fentanyl given by Dr Wong and oxygen restarted at 2 l/m per nasal canula per Dr Wong ordered, heart rate 159, respirations 42 1345 Report given to Liz Kurtz RN in ICU and patient to go to room 8 in ICU 1348 Patient being transported via bed to ICU by eabelkis RN and CHart RN, with Dr Montalvo's continued presence at bedside, remaining 25 cc of platelets being sent to lab as requested by Dr Montalvo
[2017-09-23] MEDS: Acetaminophen 500 MG Tablet 1000 MG PO (15:15)
[2017-09-23] MEDS: Lactated Ringers 1,000 ML 999 ML IV (15:20)
--- NOTE | 2017-09-23 15:30 | NURSING ---
Stopped infusion see note
--- NOTE | 2017-09-23 21:47 | NURSING ---
assuming care of the patient at this time.
[2017-09-24] VITALS (25 sets, daily range): BP systolic 103–131; BP diastolic 67–79; PULSE 72–109; RESP 16–25; TEMP 36.3–37.1; O2SAT 93–100
[2017-09-24] MEDS: oxyCODONE 5 MG Tablet PO ×4 (05:41→21:39)
[2017-09-24] MEDS: 0.9% NaCl Peripheral Flush Adult/Peds IV (05:44)
[2017-09-24 06:13] LABS: Absolute Lymphocyte Count 1.18 X10^3/ul (0.83-4.51); Absolute Neutrophil Count 3.8 X10^3/uL (2.0-7.7); Basophil# 0.01 X10^3/uL; Basophil% 0.2 % (0-1); Eosinophil# 0.09 X10^3/uL; Eosinophils% 1.6 % (0-5); Hematocrit 20.6 % (37-47); Lymphocyte # 1.18 X10^3/ul (4.0); Lymphocyte % 21.6 % (19-41); Mean Corpuscular Hgb 30.2 pg (27.0-32.0); Mean Corpuscular Volume 88.8 fL (81-99); Mean Platelet Vol. 10.9 fl (6.2-12.0); Monocyte# 0.37 X10^3/uL; Monocyte% 6.8 % (0-10); Neutrophil % 69.4 % (47-70); Platelet Count 70 K/mm3 (150-450); RBC Distribution Width CV 14.2 % (11.6-14.6); RBC Distribution Width SD 44.1 fl (35.1-43.9); Red Blood Count 2.32 M/mm3 (4.2-5.4); White Blood Count 5.5 K/mm3 (4.4-11.0)
[2017-09-24 06:31] LABS: Anion Gap 6 (5-15); BUN 11 mg/dL (7-18); BUN/Creat Ratio 10.6 RATIO (10-20); Calcium,Total 7.6 mg/dL (8.5-10.1); Chloride 108 mmol/L (98-107); Creatinine, Serum 1.04 mg/dL (0.55-1.02); EST Glomerular Filtration Rate 64 mL/min (>60); Est Glom Filt Rate - Afr Amer 78 mL/min (>60); Glucose 77 mg/dL (74-106); Magnesium 1.8 mg/dL (1.6-2.6); Phosphorus 2.9 mg/dL (2.5-4.9); Potassium 3.7 mmol/L (3.5-5.1); Sodium Level 141 mmol/L (136-145)
[2017-09-24 06:55] LABS: POSITIVE COUNT NO; POSITIVE DIFFERENTIAL NO; POSITIVE MORPHOLOGY NO
[2017-09-24 07:07] LABS: International Normalized Ratio 1.2; Prothrombin Time (Protime)PT. 14.9 SECONDS (11.7-14.9)
[2017-09-24 07:08] LABS: Fibrinogen 347 mg/dl (203-444); Partial Thromboplast Time 32.2 Seconds (24.1-36.2)
--- NOTE | 2017-09-24 07:16 | PCM.PN.INT ---
Subjective: Patient did well overnight. Patient feels back to baseline. Patient was transitioned to oxycodone for pain control and has tolerated this well. Tachycardia is significantly improved and patient is saturating well on room air. Patient denies any nausea or vomiting. Patient does report flatus overnight. Abdominal distention is subjectively improved. General: Alert, Oriented x3, Cooperative, No apparent distress, Well developed, Well nourished, - - Speaking in full sentences. HEENT: Atraumatic, PERRLA, EOMI, Normocephalic, - - No scleral icterus or injection noted. Oral: Moist Mucosa, No Gingival or Mucosal Lesions/ Ulcerations Neck: Supple, No JVD, No Nodes, Trachea Midline Lungs: Clear to auscultation, Normal air movement, No rhonchi, No wheeze, No rales, - - Symmetric expansion. No dullness to percussion. Cardiovascular: Regular rate, Regular Rhythm, Normal S1, Normal S2, No murmurs, No rub noted, No Gallop Abdomen: Bowel Sounds Present, Soft, Distended, - - Slight tenderness to palpation with no rebound. Extremities: No clubbing, No cyanosis, Edema Skin: No rashes, No breakdown Musculoskeletal: No Tenderness to Palpation of Joints or Extremities Lymphatic: No Cervical, Supraclavicular, or Inguinal Adenopathy Neurological: Cranial nerves II-XII grossly intact, Neuro grossly intact, Motor Exam 5/5 strength throughout, Sensory exam intact to light touch and pain Psych/Mental Status: Alert and oriented to time, place, person, mood and affect Vital Signs Temp Pulse Resp BP Pulse Ox 37.1 C 94 21 H 108/79 96 09/24/17 06:00 09/24/17 07:00 09/24/17 07:00 09/24/17 07:00 09/24/17 07:00 Oxygen Flow Rate (L/min) 1 Oxygen Delivery Method Room Air Weight: 93 kg Body Mass Index (BMI) 30.2 Intake and Output for Last 24 Hours 09/22/17 09/23/17 09/24/17 23:59 23:59 23:59 Intake Total 5312 / 5312 5954 / 5954 177 / 177 Output Total 775 / 775 6150 / 6150 1250 / 1250 Balance 4537 / 4537 -196 / -196 -1073 / -1073 Labs (Last 48 Hours) 09/22/17 09/22/17 09/22/17 07:50 07:50 07:50 WBC 7.8 Corrected WBC RBC 4.09 L Hgb 12.5 Hct 36.3 L MCV 88.8 MCH 30.6 MCHC 34.4 RDW 12.5 RDW Differential 39.8 Plt Count 193 MPV 11.6 Immature Gran % (Auto) Neut % (Auto) Lymph % (Auto) [place] % (Auto) Eos % (Auto) Baso % (Auto) Immature Gran # (Auto) Absolute Neuts (auto) Absolute Lymphs (auto) Absolute Monos (auto) Total Counted Neutrophils % (Manual) Band Neutrophils % Lymphocytes % (Manual) Monocytes % (Manual) Eosinophils % (Manual) Basophils % (Manual) Metamyelocytes % Myelocytes % Promyelocytes % Blast Cells % Plasma Cell % (Manual) Other Cells % Lymphocytes # Nucleated RBCs/100 WBC Differential Comment Diff Path Review Hypersegmented Neuts Atypical Lymphocytes Reactive Lymphocytes Smudge Cells Eosinophilia # Basophilia # Toxic Granulation Dohle Bodies Patricia Rods Platelet Estimate Plt Morphology Comment RBC Morphology Polychromasia Hypochromasia Poikilocytosis Basophilic Stippling Anisocytosis Microcytosis Macrocytosis Spherocytes Sickle Cells Target Cells Tear Drop Cells Ovalocytes Stomatocytes [place] Bodies Agapito Cells Bite Cells Acanthocytes (Spur) Rouleaux Schistocytes PT INR APTT Fibrinogen Sodium Potassium Chloride Carbon Dioxide Anion Gap BUN Creatinine Estim Creat Clear Calc Est GFR (MDRD) Af Amer Est GFR (MDRD) Non-Af BUN/Creatinine Ratio Glucose Calcium Phosphorus Magnesium Total Bilirubin AST ALT Alkaline Phosphatase Total Protein Albumin Globulin Albumin/Globulin Ratio Blood Type B NEGATIVE Antibody Screen NEGATIVE Screen Baby's Blood Type Baby's SONDRA Crossmatch See Detail 09/22/17 09/22/17 09/22/17 07:50 14:50 14:50 WBC 20.6 H Corrected WBC RBC 3.24 L Hgb 10.0 L Hct 29.3 L MCV 90.4 MCH 30.9 MCHC 34.1 RDW 12.8 RDW Differential 40.9 Plt Count 159 MPV 10.8 Immature Gran % (Auto) 0.300 Neut % (Auto) 89.9 H Lymph % (Auto) 5.8 L [place] % (Auto) 3.5 Eos % (Auto) 0.4 Baso % (Auto) 0.1 Immature Gran # (Auto) Absolute Neuts (auto) 18.5 H Absolute Lymphs (auto) 1.20 Absolute Monos (auto) Total Counted Not Reportable Neutrophils % (Manual) Band Neutrophils % Lymphocytes % (Manual) Monocytes % (Manual) Eosinophils % (Manual) Basophils % (Manual) Metamyelocytes % Myelocytes % Promyelocytes % Blast Cells % Plasma Cell % (Manual) Other Cells % Lymphocytes # Nucleated RBCs/100 WBC Differential Comment Diff Path Review Hypersegmented Neuts Atypical Lymphocytes Reactive Lymphocytes Smudge Cells Eosinophilia # Basophilia # Toxic Granulation Dohle Bodies Patricia Rods Platelet Estimate Plt Morphology Comment RBC Morphology Polychromasia Hypochromasia Poikilocytosis Basophilic Stippling Anisocytosis Microcytosis Macrocytosis Spherocytes Sickle Cells Target Cells Tear Drop Cells Ovalocytes Stomatocytes [place] Bodies Agapito Cells Bite Cells Acanthocytes (Spur) Rouleaux Schistocytes PT 21.3 H INR 1.8 APTT 64.9 H Fibrinogen 69 L* Sodium Potassium Chloride Carbon Dioxide Anion Gap BUN Creatinine Estim Creat Clear Calc Est GFR (MDRD) Af Amer Est GFR (MDRD) Non-Af BUN/Creatinine Ratio Glucose Calcium Phosphorus Magnesium Total Bilirubin AST ALT Alkaline Phosphatase Total Protein Albumin Globulin Albumin/Globulin Ratio Blood Type Antibody Screen Screen Baby's Blood Type Baby's SONDRA Crossmatch See Detail 09/22/17 09/22/17 09/23/17 16:40 16:40 00:30 WBC 20.8 H 15.1 H Corrected WBC RBC 2.74 L 1.86 L Hgb 8.2 L 5.5 L* Hct 25.0 L 16.1 L MCV 91.2 86.6 MCH 29.9 29.6 MCHC 32.8 34.2 RDW 12.8 13.6 RDW Differential 41.2 43.3 Plt Count 192 78 L MPV 10.9 10.5 Immature Gran % (Auto) 0.600 0.100 Neut % (Auto) 85.6 H 82.9 H Lymph % (Auto) 6.0 L 6.3 L [place] % (Auto) 7.6 10.6 H Eos % (Auto) 0.1 0.0 Baso % (Auto) 0.1 0.1 Immature Gran # (Auto) Absolute Neuts (auto) 17.8 H 12.5 H Absolute Lymphs (auto) 1.24 0.95 Absolute Monos (auto) Total Counted Not Reportable Not Reportable Neutrophils % (Manual) Band Neutrophils % Lymphocytes % (Manual) Monocytes % (Manual) Eosinophils % (Manual) Basophils % (Manual) Metamyelocytes % Myelocytes % Promyelocytes % Blast Cells % Plasma Cell % (Manual) Other Cells % Lymphocytes # Nucleated RBCs/100 WBC Differential Comment SCANNED SCANNED Diff Path Review Reviewed Hypersegmented Neuts Atypical Lymphocytes Reactive Lymphocytes Smudge Cells Eosinophilia # Basophilia # Toxic Granulation Dohle Bodies Patricia Rods Platelet Estimate Plt Morphology Comment RBC Morphology Polychromasia Hypochromasia Poikilocytosis Basophilic Stippling Anisocytosis Microcytosis Macrocytosis Spherocytes Sickle Cells Target Cells Tear Drop Cells Ovalocytes Stomatocytes [place] Bodies [place]ito Cells Bite Cells Acanthocytes (Spur) Rouleaux Schistocytes PT 29.2 H INR 2.7 APTT 46.4 H Fibrinogen < 60 L* Sodium Potassium Chloride Carbon Dioxide Anion Gap BUN Creatinine Estim Creat Clear Calc Est GFR (MDRD) Af Amer Est GFR (MDRD) Non-Af BUN/Creatinine Ratio Glucose Calcium Phosphorus Magnesium Total Bilirubin AST ALT Alkaline Phosphatase Total Protein Albumin Globulin Albumin/Globulin Ratio Blood Type Antibody Screen Screen Baby's Blood Type Baby's SONDRA Crossmatch 09/23/17 09/23/17 09/23/17 00:30 00:30 06:40 WBC Cancelled Corrected WBC Cancelled RBC Cancelled Hgb Cancelled Hct Cancelled MCV Cancelled MCH Cancelled MCHC Cancelled RDW Cancelled RDW Differential Cancelled Plt Count Cancelled MPV Cancelled Immature Gran % (Auto) Cancelled Neut % (Auto) Cancelled Lymph % (Auto) Cancelled [place] % (Auto) Cancelled Eos % (Auto) Cancelled Baso % (Auto) Cancelled Immature Gran # (Auto) Cancelled Absolute Neuts (auto) Cancelled Absolute Lymphs (auto) Cancelled Absolute Monos (auto) Cancelled Total Counted Cancelled Neutrophils % (Manual) Cancelled Band Neutrophils % Cancelled Lymphocytes % (Manual) Cancelled Monocytes % (Manual) Cancelled Eosinophils % (Manual) Cancelled Basophils % (Manual) Cancelled Metamyelocytes % Cancelled Myelocytes % Cancelled Promyelocytes % Cancelled Blast Cells % Cancelled Plasma Cell % (Manual) Cancelled Other Cells % Cancelled Lymphocytes # Cancelled Nucleated RBCs/100 WBC Cancelled Differential Comment Cancelled Diff Path Review Cancelled Hypersegmented Neuts Cancelled Atypical Lymphocytes Cancelled Reactive Lymphocytes Cancelled Smudge Cells Cancelled Eosinophilia # Cancelled Basophilia # Cancelled Toxic Granulation Cancelled Dohle Bodies Cancelled Patricia Rods Cancelled Platelet Estimate Cancelled Plt Morphology Comment Cancelled RBC Morphology Cancelled Polychromasia Cancelled Hypochromasia Cancelled Poikilocytosis Cancelled Basophilic Stippling Cancelled Anisocytosis Cancelled Microcytosis Cancelled Macrocytosis Cancelled Spherocytes Cancelled Sickle Cells Cancelled Target Cells Cancelled Tear Drop Cells Cancelled Ovalocytes Cancelled Stomatocytes Cancelled [place] Bodies Cancelled Agapito Cells Cancelled Bite Cells Cancelled Acanthocytes (Spur) Cancelled Rouleaux Cancelled Schistocytes Cancelled PT 16.5 H INR 1.3 APTT 32.3 Fibrinogen 160 L Sodium Potassium Chloride Carbon Dioxide Anion Gap BUN Creatinine Estim Creat Clear Calc Est GFR (MDRD) Af Amer Est GFR (MDRD) Non-Af BUN/Creatinine Ratio Glucose Calcium Phosphorus Magnesium Total Bilirubin AST ALT Alkaline Phosphatase Total Protein Albumin Globulin Albumin/Globulin Ratio Blood Type Antibody Screen Screen NEGATIVE Baby's Blood Type AB POSITIVE Baby's SONDRA NEGATIVE Crossmatch 09/23/17 09/23/17 09/23/17 06:40 07:55 09:05 WBC 11.2 H Corrected WBC RBC 2.56 L Hgb 7.7 L Hct 21.8 L MCV 85.2 MCH 30.1 MCHC 35.3 RDW 14.0 RDW Differential 43.1 Plt Count 55 L MPV 9.5 Immature Gran % (Auto) 0.200 Neut % (Auto) 77.6 H Lymph % (Auto) 12.6 L [place] % (Auto) 9.4 Eos % (Auto) 0.2 Baso % (Auto) 0.0 Immature Gran # (Auto) Absolute Neuts (auto) 8.7 H Absolute Lymphs (auto) 1.41 Absolute Monos (auto) Total Counted Not Reportable Neutrophils % (Manual) Band Neutrophils % Lymphocytes % (Manual) Monocytes % (Manual) Eosinophils % (Manual) Basophils % (Manual) Metamyelocytes % Myelocytes % Promyelocytes % Blast Cells % Plasma Cell % (Manual) Other Cells % Lymphocytes # Nucleated RBCs/100 WBC Differential Comment Diff Path Review Hypersegmented Neuts Atypical Lymphocytes Reactive Lymphocytes Smudge Cells Eosinophilia # Basophilia # Toxic Granulation Dohle Bodies Patricia Rods Platelet Estimate Plt Morphology Comment RBC Morphology Polychromasia Hypochromasia Poikilocytosis Basophilic Stippling Anisocytosis Microcytosis Macrocytosis Spherocytes Sickle Cells Target Cells Tear Drop Cells Ovalocytes Stomatocytes [place] Bodies Agapito Cells Bite Cells Acanthocytes (Spur) Rouleaux Schistocytes PT 15.0 H INR 1.2 APTT 28.4 Fibrinogen 273 Sodium 137 Potassium 4.2 Chloride 105 Carbon Dioxide 21.0 Anion Gap 11 BUN 13 Creatinine 1.13 H Estim Creat Clear Calc Est GFR (MDRD) Af Amer 70 Est GFR (MDRD) Non-Af 58 L BUN/Creatinine Ratio 11.5 Glucose 90 Calcium 7.2 L Phosphorus Magnesium 1.4 L Total Bilirubin 0.50 AST 37 ALT 18 Alkaline Phosphatase 72 Total Protein 4.4 L Albumin 1.9 L Globulin 2.5 Albumin/Globulin Ratio 0.8 L Blood Type Antibody Screen Screen Baby's Blood Type Baby's SONDRA Crossmatch 09/24/17 09/24/17 09/24/17 05:30 05:30 06:45 WBC 5.5 Corrected WBC RBC 2.32 L Hgb 7.0 L Hct 20.6 L MCV 88.8 MCH 30.2 MCHC 34.0 RDW 14.2 RDW Differential 44.1 H Plt Count 70 L MPV 10.9 Immature Gran % (Auto) 0.400 Neut % (Auto) 69.4 Lymph % (Auto) 21.6 [place] % (Auto) 6.8 Eos % (Auto) 1.6 Baso % (Auto) 0.2 Immature Gran # (Auto) Absolute Neuts (auto) 3.8 Absolute Lymphs (auto) 1.18 Absolute Monos (auto) Total Counted Not Reportable Neutrophils % (Manual) Band Neutrophils % Lymphocytes % (Manual) Monocytes % (Manual) Eosinophils % (Manual) Basophils % (Manual) Metamyelocytes % Myelocytes % Promyelocytes % Blast Cells % Plasma Cell % (Manual) Other Cells % Lymphocytes # Nucleated RBCs/100 WBC Differential Comment Diff Path Review Hypersegmented Neuts Atypical Lymphocytes Reactive Lymphocytes Smudge Cells Eosinophilia # Basophilia # Toxic Granulation Dohle Bodies Patricia Rods Platelet Estimate Plt Morphology Comment RBC Morphology Polychromasia Hypochromasia Poikilocytosis Basophilic Stippling Anisocytosis Microcytosis Macrocytosis Spherocytes Sickle Cells Target Cells Tear Drop Cells Ovalocytes Stomatocytes [place] Bodies Agapito Cells Bite Cells Acanthocytes (Spur) Rouleaux Schistocytes PT 14.9 INR 1.2 APTT 32.2 Fibrinogen 347 Sodium 141 Potassium 3.7 Chloride 108 H Carbon Dioxide 27.0 Anion Gap 6 BUN 11 Creatinine 1.04 H Estim Creat Clear Calc 78.90 Est GFR (MDRD) Af Amer 78 Est GFR (MDRD) Non-Af 64 BUN/Creatinine Ratio 10.6 Glucose 77 Calcium 7.6 L Phosphorus 2.9 Magnesium 1.8 Total Bilirubin AST ALT Alkaline Phosphatase Total Protein Albumin Globulin Albumin/Globulin Ratio Blood Type Antibody Screen Screen Baby's Blood Type Baby's SONDRA Crossmatch Microbiology 09/23/17 14:36 Blood product unit Transfusion Reaction Culture - Preliminary Clinical Impression(s) from Imaging Studies Abdomen/Pelvis CT 09/23/17 09:23 IMPRESSION: 1. Status post section, there are postsurgical changes in the subcutaneous and deeper tissues of the anterior abdominal wall. Gas bubbles also extend along the right inguinal tissues into the lower right retroperitoneum. 2. The uterus is enlarged, consistent with the patient's recent status, and there is ill-defined density in the anterior image of the lower uterine segment, consistent with section. The endometrial density is irregular and heterogeneous, also consistent with the patient's recent status. Hemostasis balloon is inflated in the vagina. The parametrial veins and gonadal veins are engorged. 3. There is small volume ascites. There is minimal free gas along the anterior margin of the dome of the liver. 4. There is mild to moderate hydroureteronephrosis down to compression of the distal ureters by the enlarged uterus. The urinary bladder is collapsed around a العلي catheter. 5. No sign of bowel obstruction. The appendix is not visualized. 6. Small pericardial effusion, measuring up to 7 mm in thickness posteriorly. Electronically Signed: Demarcus Johnson MD at 12:57 EDT , Service support , Chest X-Ray 09/23/17 14:15 IMPRESSION: Suboptimal inspiratory effort. No pneumonic infiltrate or CHF. 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 Defer to OB on transfusion of PRBC 2. Advance diet 3. Likely not necessary to obtain further coagulation studies 4. Hemodynamically stable on room air. Okay to leave the intensive care unit from my perspective IMPRESSIONS: 1. Suspected consumptive coagulopathy secondary to acute blood loss anemia Patient's coagulation studies have remained stable over the last 24 hours. No indication for coagulation blood products at this time. Patient did have a slight decrease in hemoglobin from 7.7--> 7, but appears to be tolerating this well. Patient may have an element of dilution from fluid products yesterday. Will defer to OB on whether a unit of packed red blood cells would be indicated. Increase activity as tolerated. 2. Abdominal distention Patient with a pattern consistent with possible ileus yesterday. However, patient is passing flatus this morning and diet can be advanced. Pain is well controlled on p.o. medications. 3. SVT Unclear etiology of sinus tachycardia yesterday. Patient did have a foreign body removed at the same time platelets were being transfused. Patient appears to have responded well to supportive therapy alone. Do not believe investigation with CT PE would be necessary as patient was not profoundly hypoxemic and tachycardia has resolved spontaneously. Cannot exclude a reaction to platelet therapy, but investigation is underway. Code Visit Inpatient E&M: 15059 Subs Hosp L3
[2017-09-24] MEDS: Senna/Docusate Sodium 1 Tablet PO (07:48)
--- NOTE | 2017-09-24 09:27 | CASEMGMT ---
SW checked in w/pt to inquire how she is doing. Pt states she is doing better both physically and emotionally today. Pt is going back to [facility] today. SW explained to pt that if she or her family needs any support while here, there is a SW in [facility] also who is available. Pt states understanding. SOPHIE [place], [employer]
[2017-09-24] MEDS: Prenatal Vits Tablet 1 TABLET PO (11:56)
--- NOTE | 2017-09-24 13:26 | NURSING ---
report called to SERGEY Gomez in [facility]
--- NOTE | 2017-09-24 15:22 | PCM.PN.OB ---
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 (Acute) hemorrhage (Acute) Anemia associated with acute blood loss (Acute) DIC (disseminated intravascular coagulation) (Acute) Subjective: patient seen at 7:45 doing much better, feeling good pain controlled decreased heartbeat - Physical Exam General: Alert, Oriented x3, Cooperative HEENT: Atraumatic, PERRLA, EOMI, Normocephalic Neck: Supple, No JVD, Negative Carotid Bruits Lungs: Clear to auscultation, Normal air movement Cardiovascular: Regular rate, No murmurs Abdomen: Bowel Sounds Present, Soft, Non Tender Extremities: No edema, Capillary Refill Less than 3 Seconds Skin: No rashes, No breakdown Musculoskeletal: No Tenderness to Palpation of Joints or Extremities Psych/Mental Status: Normal Affect, Appropriate Vital Signs Temp Pulse Resp BP Pulse Ox 98.2 F 88 23 H 115/75 100 09/24/17 12:00 09/24/17 12:00 09/24/17 12:00 09/24/17 12:00 09/24/17 12:00 Oxygen Flow Rate (L/min) 1 Oxygen Delivery Method Room Air Weight: 205 lb 0.478 oz Body Mass Index (BMI) 30.2 Intake and Output for Last 24 Hours 09/22/17 09/23/17 09/24/17 23:59 23:59 23:59 Intake Total 5312 / 5312 5954 / 5954 1604 / 1604 Output Total 775 / 775 6150 / 6150 2550 / 2550 Balance 4537 / 4537 -196 / -196 -946 / -946 Microbiology Past 72 Hours 09/23/17 14:36 Transfusion Reaction Culture - Preliminary Blood product unit Laboratory Tests Past 24 Hrs 09/22/17 09/24/17 09/24/17 07:50 05:30 05:30 WBC 5.5 RBC 2.32 L Hgb 7.0 L Hct 20.6 L MCV 88.8 MCH 30.2 MCHC 34.0 RDW 14.2 RDW Differential 44.1 H Plt Count 70 L MPV 10.9 Immature Gran % (Auto) 0.400 Neut % (Auto) 69.4 Lymph % (Auto) 21.6 [place] % (Auto) 6.8 Eos % (Auto) 1.6 Baso % (Auto) 0.2 Absolute Neuts (auto) 3.8 Absolute Lymphs (auto) 1.18 Total Counted Not Reportable PT INR APTT Fibrinogen Sodium 141 Potassium 3.7 Chloride 108 H Carbon Dioxide 27.0 Anion Gap 6 BUN 11 Creatinine 1.04 H Estim Creat Clear Calc 78.90 Est GFR (MDRD) Af Amer 78 Est GFR (MDRD) Non-Af 64 BUN/Creatinine Ratio 10.6 Glucose 77 Calcium 7.6 L Phosphorus 2.9 Magnesium 1.8 Crossmatch See Detail 09/24/17 06:45 WBC RBC Hgb Hct MCV MCH MCHC RDW RDW Differential Plt Count MPV Immature Gran % (Auto) Neut % (Auto) Lymph % (Auto) [place] % (Auto) Eos % (Auto) Baso % (Auto) Absolute Neuts (auto) Absolute Lymphs (auto) Total Counted PT 14.9 INR 1.2 APTT 32.2 Fibrinogen 347 Sodium Potassium Chloride Carbon Dioxide Anion Gap BUN Creatinine Estim Creat Clear Calc Est GFR (MDRD) Af Amer Est GFR (MDRD) Non-Af BUN/Creatinine Ratio Glucose Calcium Phosphorus Magnesium Crossmatch Medical Necessity - Tobacco Use Smoking Status: Never smoker Assessment/Plan All Active Problems (Last Reviewed 09/10/17 @ 15:26 by Griselda Valera) 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
--- NOTE | 2017-09-24 16:30 | NURSING ---
Received report from Sybil Graham RN. I will assume care of patient and infant at this time.
--- NOTE | 2017-09-24 18:00 | NURSING ---
Ice pack applied to perineum.
--- NOTE | 2017-09-24 19:20 | NURSING ---
Report given to Taty Stroud RN. She will assume care of patient at this time.
--- NOTE | 2017-09-24 19:56 | NURSING ---
labial edema noted, left side greater than right. Plan to d/c kay after Dr. Meade assesses pt due to concerns pt may be unable to void due to edema.
--- NOTE | 2017-09-24 20:01 | NURSING ---
Dr Meade asked to assess due to labial edema.
[2017-09-24] MEDS: 0.9% Saline Lock 10 ML Syringe IV (23:05)
[2017-09-25 01:40] VITALS: BP 104/67; PULSE 72; RESP 16; TEMP 36.6
[2017-09-25] MEDS: oxyCODONE 5 MG Tablet PO ×5 (01:48→23:53)
[2017-09-25] MEDS: Senna/Docusate Sodium 1 Tablet PO (05:52)
[2017-09-25 05:54] LABS: Hematocrit 23.1 % (37-47); Hemoglobin 7.9 g/dl (12.0-15.0); Mean Corp Hgb Conc 34.2 g/gl (32-36); Mean Corpuscular Hgb 30.7 pg (27.0-32.0); Mean Corpuscular Volume 89.9 fL (81-99); Mean Platelet Vol. 10.6 fl (6.2-12.0); Platelet Count 92 K/mm3 (150-450); Red Blood Count 2.57 M/mm3 (4.2-5.4); White Blood Count 7.3 K/mm3 (4.4-11.0)
[2017-09-25 06:07] LABS: Scan Indicated on CBC? Y/N NO
[2017-09-25] MEDS: Acetaminophen 500 MG Tablet 1000 MG PO ×2 (09:49→21:48)
[2017-09-25 09:50] VITALS: BP 115/78; PULSE 85; RESP 16; TEMP 36.6; O2SAT 99
[2017-09-25 13:40] LABS: Pathology Specimen OB SEE PATHOLOGY REPORT
--- NOTE | 2017-09-25 14:27 | PN_ITS ---
Subjective: Patient transferred out of the intensive care unit yesterday. Patient denies any complications overnight. Patient has had some dyspnea with exertion, but denies any chest pressure, productive cough or abdominal pain. Patient tolerating p.o. well. Patient denies any bleeding such as hemoptysis, melena, hematochezia or bruising at the incision site. Patient did receive 1 unit of packed red blood cells yesterday, but no platelets. General: Alert, Oriented x3, Cooperative, No apparent distress, Well developed, Well nourished, - - Speaking in full sentences. HEENT: Atraumatic, PERRLA, EOMI, Normocephalic, - - No scleral icterus or injection noted. Oral: Moist Mucosa, No Gingival or Mucosal Lesions/ Ulcerations Neck: Supple, No JVD, No Nodes, Trachea Midline Lungs: Clear to auscultation, Normal air movement, No rhonchi, No wheeze, No rales Cardiovascular: Regular rate, Regular Rhythm, Normal S1, Normal S2, No murmurs, No rub noted, No Gallop, - - Sinus rhythm Abdomen: Bowel Sounds Present, Soft, Distended, Tender - To palpation only. No guarding noted. Extremities: No clubbing, No cyanosis, No edema, Capillary Refill Less than 3 Seconds Skin: No rashes, No breakdown Musculoskeletal: No Tenderness to Palpation of Joints or Extremities Lymphatic: No Cervical, Supraclavicular, or Inguinal Adenopathy Neurological: Cranial nerves II-XII grossly intact, Neuro grossly intact, Motor Exam 5/5 strength throughout Psych/Mental Status: Alert and oriented to time, place, person, mood and affect Vital Signs Temp Pulse Resp BP Pulse Ox 36.6 C 85 16 115/78 99 09/25/17 09:50 09/25/17 09:50 09/25/17 09:50 09/25/17 09:50 09/25/17 09:50 Oxygen Flow Rate (L/min) 1 Oxygen Delivery Method Room Air Weight: 93 kg Body Mass Index (BMI) 30.2 Intake and Output for Last 24 Hours 09/23/17 09/24/17 09/25/17 23:59 23:59 23:59 Intake Total 5954 / 5954 1604 / 1604 Output Total 6150 / 6150 4050 / 4050 600 / 600 Balance -196 / -196 -2446 / -2446 -600 / -600 Labs (Last 48 Hours) 09/22/17 09/24/17 09/24/17 07:50 05:30 05:30 WBC 5.5 RBC 2.32 L Hgb 7.0 L Hct 20.6 L MCV 88.8 MCH 30.2 MCHC 34.0 RDW 14.2 RDW Differential 44.1 H Plt Count 70 L MPV 10.9 Immature Gran % (Auto) 0.400 Neut % (Auto) 69.4 Lymph % (Auto) 21.6 [place] % (Auto) 6.8 Eos % (Auto) 1.6 Baso % (Auto) 0.2 Absolute Neuts (auto) 3.8 Absolute Lymphs (auto) 1.18 Total Counted Not Reportable PT INR APTT Fibrinogen Sodium 141 Potassium 3.7 Chloride 108 H Carbon Dioxide 27.0 Anion Gap 6 BUN 11 Creatinine 1.04 H Estim Creat Clear Calc 78.90 Est GFR (MDRD) Af Amer 78 Est GFR (MDRD) Non-Af 64 BUN/Creatinine Ratio 10.6 Glucose 77 Calcium 7.6 L Phosphorus 2.9 Magnesium 1.8 Crossmatch See Detail 09/24/17 09/25/17 06:45 05:40 WBC 7.3 RBC 2.57 L Hgb 7.9 L Hct 23.1 L MCV 89.9 MCH 30.7 MCHC 34.2 RDW 14.0 RDW Differential 44.0 H Plt Count 92 L MPV 10.6 Immature Gran % (Auto) Neut % (Auto) Lymph % (Auto) [place] % (Auto) Eos % (Auto) Baso % (Auto) Absolute Neuts (auto) Absolute Lymphs (auto) Total Counted PT 14.9 INR 1.2 APTT 32.2 Fibrinogen 347 Sodium Potassium Chloride Carbon Dioxide Anion Gap BUN Creatinine Estim Creat Clear Calc Est GFR (MDRD) Af Amer Est GFR (MDRD) Non-Af BUN/Creatinine Ratio Glucose Calcium Phosphorus Magnesium Crossmatch Microbiology 09/23/17 14:36 Blood product unit Transfusion Reaction Culture - Preliminary Medical Necessity - Tobacco Use Smoking Status: Never smoker Assessment/Plan All Active Problems (Last Reviewed 09/10/17 @ 15:26 by Griselda Valera) 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 RECOMMENDATIONS: 1. Consider iron supplementation 2. Likely not necessary to obtain further coagulation studies 3. Hemodynamically stable on room air. Will sign off from a critical care perspective IMPRESSIONS: 1. Suspected consumptive coagulopathy secondary to acute blood loss anemia Transferred out of the intensive care unit yesterday. Patient still relatively anemic, but incremented appropriately with 1 unit packed red blood cells. Thrombocytopenia appears to be improving also. Stressed to the patient that no further transfusions would be indicated. Would recommend using iron supplementation to aid in recovery of blood products. No signs or symptoms of continued bleeding at this time. Patient currently hemodynamically stable on room air. Will sign off from a critical care perspective. No outpatient follow -up as indicated. 2. Abdominal distention To needs to improve on a daily basis. Patient passing flatus and tolerating p.o. diet. Pain is well controlled. 3. SVT Clear etiology of sinus tachycardia. Patient has not had any recurrence and is doing well at this time. Platelet culture is showing no growth at this time. Cannot exclude a transient bacteremia secondary to the removal of uterine foreign body versus transfusion reaction to platelets. In either regard , patient appears to be approaching baseline at this time. No further workup is likely indicated. Code Visit Inpatient E&M: 74546 Subs Hosp L2
[2017-09-25 14:40] VITALS: BP 111/78; PULSE 65; TEMP 36.6; O2SAT 98
[2017-09-25 19:55] VITALS: BP 118/80; PULSE 84; RESP 17; TEMP 37.1; O2SAT 100
--- NOTE | 2017-09-25 22:38 | PCM.PN.OB ---
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 (Acute) hemorrhage (Acute) Anemia associated with acute blood loss (Acute) DIC (disseminated intravascular coagulation) (Acute) Subjective: late entry- patient seen at 7:50 am feeling much bettter no CP SOB ambulating voiding tolerating adequate po, positive flatus no BM yet. feeling fatigue but overall improvement - Physical Exam General: Alert, Oriented x3 Lungs: Normal air movement Cardiovascular: Tachycardic Abdomen: Soft, Distended, Tender Vital Signs Temp Pulse Resp BP Pulse Ox 98.7 F 84 17 118/80 100 09/25/17 19:55 09/25/17 19:55 09/25/17 19:55 09/25/17 19:55 09/25/17 19:55 Oxygen Flow Rate (L/min) 1 Oxygen Delivery Method Room Air Weight: 205 lb 0.478 oz Body Mass Index (BMI) 30.2 Intake and Output for Last 24 Hours 09/23/17 09/24/17 09/25/17 23:59 23:59 23:59 Intake Total 5954 / 5954 1604 / 1604 Output Total 6150 / 6150 4050 / 4050 600 / 600 Balance -196 / -196 -2446 / -2446 -600 / -600 Microbiology Past 72 Hours 09/23/17 14:36 Transfusion Reaction Culture - Preliminary Blood product unit Laboratory Tests Past 24 Hrs 09/25/17 05:40 WBC 7.3 RBC 2.57 L Hgb 7.9 L Hct 23.1 L MCV 89.9 MCH 30.7 MCHC 34.2 RDW 14.0 RDW Differential 44.0 H Plt Count 92 L MPV 10.6 Medical Necessity - Tobacco Use Smoking Status: Never smoker Assessment/Plan All Active Problems (Last Reviewed 09/10/17 @ 15:26 by Griselda Valera) 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 s/p LTCS due to bradycardia velamentous cord insertion with rupture of umbilical vessels and abruption s/p 24 ICU admission- doing well hemorrhage- sp methergine, hemabate, pitocin, and lysteda. bakri balloon placed. additional dose of ancef given due to balloon in place. balloon removed now, stable. consumptive coagulopathy stable anemia secondary to acute blood loss- s/p 5 u RBCs, 3 units FFP 2 units cryo. attempted transfusion of platelets was aborted due to tachycardic episode abdominal distension- improving, await GI function return possible transfusion reaction to platelets vs transient bacteremia from bakri balloon release- recovering well, stable. resolved.
[2017-09-26 01:30] VITALS: BP 109/57; PULSE 61; RESP 17; TEMP 37.2
[2017-09-26] MEDS: oxyCODONE 5 MG Tablet PO ×5 (03:39→21:48)
[2017-09-26] MEDS: Acetaminophen 500 MG Tablet 1000 MG PO ×2 (05:52→16:42)
[2017-09-26 08:45] VITALS: BP 117/78; PULSE 72; RESP 16; TEMP 36.6; O2SAT 97
[2017-09-26] MEDS: Senna/Docusate Sodium 1 Tablet PO (08:54)
--- NOTE | 2017-09-26 09:37 | PCM.PN.OB ---
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 (Acute) hemorrhage (Acute) Anemia associated with acute blood loss (Acute) DIC (disseminated intravascular coagulation) (Acute) Subjective: improved no CP SOB N V ambulating tolerating po - Physical Exam General: Alert, Oriented x3 Vital Signs Temp Pulse Resp BP Pulse Ox 97.9 F 72 16 117/78 97 09/26/17 08:45 09/26/17 08:45 09/26/17 08:45 09/26/17 08:45 09/26/17 08:45 Oxygen Flow Rate (L/min) 1 Oxygen Delivery Method Room Air Weight: 205 lb 0.478 oz Body Mass Index (BMI) 30.2 Intake and Output for Last 24 Hours 09/24/17 09/25/17 09/26/17 23:59 23:59 23:59 Intake Total 1604 / 1604 Output Total 4050 / 4050 600 / 600 Balance -2446 / -2446 -600 / -600 Microbiology Past 72 Hours 09/23/17 14:36 Transfusion Reaction Culture - Preliminary Blood product unit Medical Necessity - Tobacco Use Smoking Status: Never smoker Assessment/Plan All Active Problems (Last Reviewed 09/10/17 @ 15:26 by Griselda Valera) 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 s/p LTCS due to bradycardia velamentous cord insertion with rupture of umbilical vessels and abruption s/p 24 ICU admission- doing well hemorrhage- sp methergine, hemabate, pitocin, and lysteda. bakri balloon placed. additional dose of ancef given due to balloon in place. balloon removed now, stable. consumptive coagulopathy stable anemia secondary to acute blood loss- s/p 5 u RBCs, 3 units FFP 2 units cryo. attempted transfusion of platelets was aborted due to tachycardic episode abdominal distension- lessened- gi function returned possible transfusion reaction to platelets vs transient bacteremia from bakri balloon release- recovering well, stable. resolved. stable for discharge to home
--- NOTE | 2017-09-26 09:45 | DCINST_ITS ---
Discharge Diet: No Restrictions Discharge Activity: May Not Drive - for 2 weeks, May not drive while taking narcotic pain medications., May Shower, May Take a Tub Bath - in 7 days May resume sexual activity in: 4-6 weeks Lifting Restrictions: 20 pounds Additional Activity Instructions:: Nothing in the vagina for 4-6 weeks. You may return to work/school in 6 weeks. Call your doctor if your incision/area has: Continuous Slow Oozing, Sudden Increased Bleeding, Increased Pain/ Swelling, Increased Redness, Foul Smelling Discharge Call your doctor if you observe: Fever of 101 or Higher, Using more than one pad per hour - for 2 hours Suture Line Care: Avoid Pulling/Pushing, Avoid Pinching/Bending Cleanse incision/area with: Keep Dressing Clean & Dry Additional Instructions: If you experience any of the following, contact your healthcare provider. * Bleeding that soaks a pad every hour for 2 hours * Fever 100.4 or higher * Unrelieved incision or abdominal pain * Swelling, redness, discharge or bleeding from your incision or episiotomy site * Your incision begins to separate * Problems urinating (including inability to urinate or burning while urinating) . * Visual changes * Severe headache * Flu-like symptoms * Pain or redness in one of both of your breasts * Pain, warmth, tenderness or swelling in your legs, especially the calf area * Frequent nausea and vomiting * Symptoms of depression or anxiety If you experience any of the following, call 911 or go to the nearest Emergency Room. * Chest pain * Problems breathing * Seizure activity * Partial or complete paralysis of a body part, slurred speech, weakness or drooping of the face, or a sudden inability to walk or hold your balance Allergies/Adverse Reactions: Allergies Sulfa (Sulfonamide Antibiotics) Allergy (Mild, Verified 09/22/17 07:42) Unknown Medications to take at Discharge vitamin,calcium,[id number] acid tablet 1 tab PO QDAY 03/27/17 Follow-Up: Call to make an appointment with your doctor for an incision check in 1-2 weeks. You will also need a 6 week post- follow up appointment. Please Follow Up With: Bessy Meade MD - Call to make an appointment for an incision check in 1-2 [phone] When: You will need a post- check in 6 weeks. Primary Care Physician: Care Physician,No Primary [Primary Care Provider] -
[2017-09-26 21:00] VITALS: BP 122/79; PULSE 80; RESP 16; TEMP 37.5
[2017-09-27 03:20] VITALS: BP 115/71; PULSE 88; RESP 16; TEMP 37.4
[2017-09-27] MEDS: oxyCODONE 5 MG Tablet PO ×3 (03:39→13:00)
[2017-09-27] MEDS: Senna/Docusate Sodium 1 Tablet PO (08:26)
[2017-09-27 08:27] VITALS: BP 114/75; PULSE 103; RESP 16; TEMP 36.9; O2SAT 98
--- NOTE | 2017-09-27 08:43 | PCM.PN.OB ---
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 (Acute) hemorrhage (Acute) Anemia associated with acute blood loss (Acute) DIC (disseminated intravascular coagulation) (Acute) Subjective: doing even better ambulating voiding toleratin gpo good energy level - Physical Exam General: Alert, Oriented x3 Abdomen: Soft, Non Tender, - - C/D/I ecchymoses Vital Signs Temp Pulse Resp BP Pulse Ox 98.5 F 103 H 16 114/75 98 09/27/17 08:27 09/27/17 08:27 09/27/17 08:27 09/27/17 08:27 09/27/17 08:27 Oxygen Flow Rate (L/min) 1 Oxygen Delivery Method Room Air Weight: 205 lb 0.478 oz Body Mass Index (BMI) 30.2 Intake and Output for Last 24 Hours 09/25/17 09/26/17 09/27/17 23:59 23:59 23:59 Output Total 600 / 600 Balance -600 / -600 Microbiology Past 72 Hours 09/23/17 14:36 Transfusion Reaction Culture - Preliminary Blood product unit No growth-Final to follow Medical Necessity - Tobacco Use Smoking Status: Never smoker Assessment/Plan All Active Problems (Last Reviewed 09/10/17 @ 15:26 by Griselda Valera) 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 s/p LTCS due to bradycardia velamentous cord insertion with rupture of umbilical vessels and abruption s/p 24 ICU admission- doing well hemorrhage- sp methergine, hemabate, pitocin, and lysteda. bakri balloon placed. additional dose of ancef given due to balloon in place. balloon removed now, stable. consumptive coagulopathy stable anemia secondary to acute blood loss- s/p 5 u RBCs, 3 units FFP 2 units cryo. attempted transfusion of platelets was aborted due to tachycardic episode abdominal distension- lessened- gi function returned possible transfusion reaction to platelets vs transient bacteremia from bakri balloon release- recovering well, stable. resolved. stable for discharge to home
--- NOTE | 2017-09-27 13:06 | PCM.DC.SUM ---
Discharge Date and Diagnosis - Problem List 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 (Acute) hemorrhage (Acute) Anemia associated with acute blood loss (Acute) DIC (disseminated intravascular coagulation) (Acute) Date of Admission: 09/22/17 Date of Discharge: 09/27/17 - Primary Discharge Diagnosis Active and Suspected Problems (Last Reviewed 09/10/17 @ 15:26 by Griselda Valera) Velamentous insertion of umbilical cord in third trimester (Acute) hemorrhage (Acute) Anemia associated with acute blood loss (Acute) DIC (disseminated intravascular coagulation) (Acute) Hospital Course and Treatment Imaging Results: ct abdomen pelvis postop changes, cxr no acute process Consultations 09/22/17 07:18 Consult: Anesthesia Routine Comment: Reason For Exam: LABOR Operations: None, - - primary csection Procedures: None Summary of Care Provided: The patient is a 37 year old F presents for IOL secondary to LGA and favorable cervix at 40 weeks. patient was induced and after rupture of membranes she developed a bradycardia severely and was delivered via stat cs with a cord pH of 7.0. cs went well without complication but several hours postoperatively the patient developed PPH and a subsequent consuptive coagulopathy that was remedied with multiple blood products transfused. she was in the ICU for 24 hours of monitoring during this time and then she stabilized by the 5th day and was stable for discharge to home Discharge Diet: No Restrictions Discharge Activity: May Not Drive - for 2 weeks, May not drive while taking narcotic pain medications., May Shower, May Take a Tub Bath - in 7 days May resume sexual activity in: 4-6 weeks Additional Activity Instructions:: Nothing in the vagina for 4-6 weeks. You may return to work/school in 6 weeks. Call your doctor if your incision/area has: Continuous Slow Oozing, Sudden Increased Bleeding, Increased Pain/ Swelling, Increased Redness, Foul Smelling Discharge Call your doctor if you observe: Fever of 101 or Higher, Using more than one pad per hour - for 2 hours Suture Line Care: Avoid Pulling/Pushing, Avoid Pinching/Bending Cleanse incision/area with: Keep Dressing Clean & Dry Home Medications: Medications to take at Discharge vitamin,calcium,pbispfjo-rboy-tdgzp acid tablet 1 tab PO QDAY 03/27/17 Oxycodone HCl/Acetaminophen [Percocet 5-325] 1 - 2 tablet PO Q4H PRN PRN 7 Days #28 tablet 09/26/17 Ferrous Sulfate [Slow Fe] 142 mg PO BID #60 tablet.er 09/27/17 Naproxen [Naprosyn] 250 - 500 mg PO Q8H PRN PRN #30 tab 09/27/17 Oxycodone HCl/Acetaminophen [Percocet 5-325] 1 - 2 tablet PO Q4H PRN PRN 7 Days #28 tablet 09/27/17 Following Prescrptions Were Given to Patient: Oxycodone HCl/Acetaminophen [Percocet 5-325] 1 - 2 tablet PO Q4H PRN PRN 7 Days #28 tablet PRN Reason: Moderate-Severe pain Oxycodone HCl/Acetaminophen [Percocet 5-325] 1 - 2 tablet PO Q4H PRN PRN 7 Days #28 tablet PRN Reason: Moderate-Severe pain Naproxen [Naprosyn] 250 - 500 mg PO Q8H PRN PRN #30 tab PRN Reason: MILD PAIN Ferrous Sulfate [Slow Fe] 142 mg PO BID #60 tablet.er Primary Care Physician: Care Physician,No Primary [Primary Care Provider] - Please Follow Up With: Bessy Meade MD - Call to make an appointment for an incision check in 1-2 [phone] When: You will need a post- check in 6 weeks. Patient Instructions: Holds for , Expressing Breastmilk, Storing Breastmilk, After a , Nutrition While , Iron Supplements, The Benefits of , : Caring for Yourself, at Home Medical Necessity - Tobacco Use Smoking Status: Never smoker Meaningful Use Info Meaningful Use Diagnoses (Choose all that apply): None applicable
== END 2017-09-27 13:05 | disposition home or self-care (01) | DRG 765 ==
LOC: WP 09-23 08:58 → ICU 09-24 09:59 → WP 09-24 13:57
PROVIDERS: Internal Medicine Critical Care Medicine; Admitting Provider Obstetrics & Gynecology; Visit Provider Obstetrics & Gynecology
DX: O26.843 Uterine size-date discrepancy, third trimester (principal); D65 Disseminated intravascular coagulation [defibrination syndrome]; D62 Acute posthemorrhagic anemia; K56.7 Ileus, unspecified; R78.81 Bacteremia; I47.1 Supraventricular tachycardia; O43.123 Velamentous insertion of umbilical cord, third trimester; T80.89XA Other complications following infusion, transfusion and therapeutic injection, initial encounter; O76 Abnormality in fetal heart rate and rhythm complicating labor and delivery; O90.81 Anemia of the puerperium; O72.1 Other immediate postpartum hemorrhage; O99.63 Diseases of the digestive system complicating the puerperium; R09.02 Hypoxemia; R06.82 Tachypnea, not elsewhere classified; O36.63X0 Maternal care for excessive fetal growth, third trimester, not applicable or unspecified; G43.909 Migraine, unspecified, not intractable, without status migrainosus; Z3A.40 40 weeks gestation of pregnancy; Z37.0 Single live birth
CPT/HCPCS: 36415; 59025; 59050; 71045; 74018; 74177; 80048; 80053; 83735; 84100; 85025; 85027; 85384; 85461; 85610; 85730; 86644; 86850; 86900; 86920; 86921; 86922; 86965; 88307; 90384; 93005; 99218; J7030; J7050; J7120; P9012; P9016; P9017; P9035; Q9967; A4216; G0378; J2405; J2790

== ENCOUNTER 2017-10-03 09:35 | Outpatient (CLI) | payer OTHER, SELFPAY ==
--- NOTE | 2017-10-03 11:22 | NURSING ---
had nursed right breast 30 min ago with swallowing heard
== END 2017-10-03 10:40 | disposition home or self-care (01) ==
LOC: WPOUT 09:39 → WP 09:39
PROVIDERS: Visit Provider Obstetrics & Gynecology
DX: Z39.1 Encounter for care and examination of lactating mother (principal)
CPT/HCPCS: 96152

== ENCOUNTER → 2019-03-23 13:52 | Outpatient (CLI) | payer OTHER, SELFPAY ==
[2019-03-23 11:18] VITALS: BMI 26.8
[2019-03-28 16:05] LABS: HPV APTIMA, High Risk Negative (Negative)
== END ==
PROVIDERS: Visit Provider Obstetrics & Gynecology
DX: Z12.4 Encounter for screening for malignant neoplasm of cervix (principal)
CPT/HCPCS: 87624; 88175; G0145

== ENCOUNTER → 2020-02-16 12:25 | Outpatient (CLI) | payer OTHER, SELFPAY ==
[2020-02-16 09:21] VITALS: BMI 24.6
[2020-02-16 13:15] LABS: Amphetamine Urine VISTA NEGATIVE (<1000 ng/mL); Barbiturate Urine VISTA NEGATIVE (< 200 ng/mL); Benzodiazepine Urine VISTA NEGATIVE (< 200 ng/mL); Cocaine Urine VISTA NEGATIVE (< 300 ng/mL); Ecstacy Urine VISTA NEGATIVE (< 500 ng/mL); Methadone Urine VISTA NEGATIVE (< 300 ng/mL); PCP Urine VISTA NEGATIVE (< 25 ng/mL); THC Urine VISTA NEGATIVE (< 50 ng/mL); Vista UDS pH Range 6
[2020-02-19 03:06] LABS: Chlamydia By Nucleic Acid AMP Negative (Negative)
[2020-02-19 07:37] LABS: Gonococcus By Nucleic Acid AMP Negative (Negative)
== END ==
PROVIDERS: Visit Provider Obstetrics & Gynecology
DX: Z11.3 Encounter for screening for infections with a predominantly sexual mode of transmission (principal); Z34.90 Encounter for supervision of normal pregnancy, unspecified, unspecified trimester
CPT/HCPCS: 80307; 87086; 87491; 87591

== ENCOUNTER → 2020-02-28 09:50 | Outpatient (CLI) | payer OTHER, SELFPAY ==
[2020-02-16 14:05] VITALS: BMI 24.6
[2020-02-28 10:56] LABS: NATERA MAILED SPECIMEN
[2020-02-28 12:30] LABS: HIV - WCH Non-Reactive (Nonreactive); Hepatitis B Surface Antigen Non-Reactive (Nonreactive); Hepatitis C Antibody Non-Reactive (Nonreactive)
[2020-02-28 12:35] LABS: Absolute Lymphocyte Count 1.55 X10^3/uL (0.83-4.51); Basophil# 0.03 X10^3/uL; Basophil% 0.5 % (0-1); Eosinophil# 0.08 X10^3/uL; Eosinophils% 1.3 % (0-5); Hemoglobin 13.7 g/dL (12.0-15.0); Lymphocyte # 1.55 X10^3/ul (4.0); Lymphocyte % 25.7 % (19-41); Mean Corp Hgb Conc 32.6 g/dL (32-36); Mean Corpuscular Hgb 29.4 pg (27.0-32.0); Mean Corpuscular Volume 90.1 fL (81-99); Mean Platelet Vol. 10.8 fl (6.2-12.0); Monocyte# 0.38 X10^3/uL; Monocyte% 6.3 % (0-10); NRBC Flagged by Analyzer 0 % (0-5); Neutrophil # 3.96 X10^3/uL (2.7-7.7); Neutrophil % 65.9 % (47-70); Platelet Count 259 K/mm3 (150-450); RBC Distribution Width CV 12.4 % (11.6-14.6); RBC Distribution Width SD 41.1 fl (35.1-43.9); Red Blood Count 4.66 M/mm3 (4.2-5.4)
[2020-03-01 02:51] LABS: Rapid Plasmin Reagin (RPR) NONREACTIVE (NONREACTIVE)
== END ==
PROVIDERS: Referring Provider Obstetrics & Gynecology; Visit Provider Obstetrics & Gynecology
DX: O09.521 Supervision of elderly multigravida, first trimester (principal); Z3A.00 Weeks of gestation of pregnancy not specified
CPT/HCPCS: 36415; 85025; 86592; 86703; 86803; 86850; 86900; 86901; 87340

== ENCOUNTER → 2020-05-07 08:54 | Outpatient (CLI) | payer OTHER, SELFPAY ==
[2020-03-15 14:05] VITALS: BMI 25.4
[2020-04-12 09:32] VITALS: BMI 26.6
--- NOTE | 2020-05-07 08:55 | US_ITS ---
STUDY: SECOND AND THIRD TRIMESTER OBSTETRICAL ULTRASOUND REASON FOR EXAM: Female, 39 years old ANATOMY SCAN -- ADVANCED MATERNAL AGE -- HX OF VELAMENTOUS CORD WITH 2018 LMP: 12/16/2019. TECHNIQUE: Transabdominal TECHNICAL QUALITY: Adequate. PRIOR ULTRASOUND: None. FINDINGS: There is a single intrauterine fetus. The fetus is in a cephalic presentation. There is demonstrated cardiac activity with a heart rate of 152 bpm. There is a normal amniotic fluid volume. The largest amniotic fluid pocket measures 4.27 x 5.5 cm. The amniotic fluid index (GERALDO) is within normal limits. The placenta is anterior in location and is not low lying. There are Grade 1 placental changes. The cervix measures 6 cm in length. The adnexal regions are not visualized. BIOMETRY: BPD: 4.93 cm: 20 weeks, 6 days HC: 18.4 cm: 21 weeks, 1 days AC: 15.75 cm: 20 weeks, 6 days FL: 3.39 cm: 20 weeks, 4 days CI: 77.6% FL/BPD: 68.7% FL/HC: FL/AC: 21.5% HC/AC: 1.17 age by current US: 20 weeks, 5 days. DEUCE by current US: 09/19/2020. Estimated weight: 380 grams, +/- 57 grams, 65.9 %. Age by LMP: 20 weeks, 3 days. DEUCE by LMP: 09/21/2020. ANATOMY: Gender: Female Cranium: Normal lateral ventricles. Normal choroid plexus. Normal cerebellum. Normal cisterna magna. Normal face, nose and lips. Chest: Normal 4-chamber heart. Abdomen/Pelvis: Normal diaphragm. Normal stomach. Normal abdominal wall. Normal cord insertion. Normal 3 vessel cord. Normal kidneys. Normal bladder. Spine: Normal cervical spine. Normal thoracic spine. Normal lumbar spine. Normal sacrum. Extremities: Normal bilateral upper extremities. Normal bilateral lower extremities. US/OB Anatomy Scan IMPRESSION: Single live uterine gestation with a mean gestational age of 20 weeks and 5 days. Electronically Signed: Pietro Baumann MD at 15:08 EST , Service support ,
== END ==
PROVIDERS: Referring Provider Obstetrics & Gynecology; Visit Provider Obstetrics & Gynecology
DX: O09.90 Supervision of high risk pregnancy, unspecified, unspecified trimester (principal)
CPT/HCPCS: 76805

== ENCOUNTER → 2020-06-29 09:06 | Outpatient (CLI) | payer OTHER, SELFPAY ==
[2020-06-08 09:44] VITALS: BMI 28.3
[2020-06-29 09:56] LABS: Absolute Lymphocyte Count 1.26 X10^3/uL (0.83-4.51); Absolute Neutrophil Count 4.3 X10^3/uL (2.0-7.7); Basophil# 0.03 X10^3/uL; Basophil% 0.5 % (0-1); Eosinophils% 1.6 % (0-5); Hematocrit 34.1 % (37-47); Hemoglobin 11.2 g/dL (12.0-15.0); Lymphocyte # 1.26 X10^3/ul (4.0); Lymphocyte % 20.2 % (19-41); Mean Corp Hgb Conc 32.8 g/dL (32-36); Mean Corpuscular Hgb 29.6 pg (27.0-32.0); Mean Platelet Vol. 10.1 fl (6.2-12.0); Monocyte# 0.46 X10^3/uL; Monocyte% 7.4 % (0-10); NRBC Flagged by Analyzer 0 % (0-5); Neutrophil # 4.32 X10^3/uL (2.7-7.7); Neutrophil % 69.3 % (47-70); Platelet Count 231 K/mm3 (150-450); RBC Distribution Width CV 13.2 % (11.6-14.6); RBC Distribution Width SD 43.5 fl (35.1-43.9); Red Blood Count 3.79 M/mm3 (4.2-5.4); White Blood Count 6.2 K/mm3 (4.4-11.0)
[2020-06-29 10:15] LABS: Glucose Challenge Gest 1H 50g 110 mg/dL (70-140)
[2020-06-29 10:28] LABS: Rubella IgG Reactive (Nonreactive)
== END ==
PROVIDERS: Referring Provider Obstetrics & Gynecology; Visit Provider Obstetrics & Gynecology
DX: O09.90 Supervision of high risk pregnancy, unspecified, unspecified trimester (principal); O09.529 Supervision of elderly multigravida, unspecified trimester; O26.899 Other specified pregnancy related conditions, unspecified trimester; Z67.91 Unspecified blood type, Rh negative
CPT/HCPCS: 82950; 85025; 86762; 86850; 86900; 86901

== ENCOUNTER → 2020-07-27 10:49 | Outpatient (CLI) | payer OTHER, SELFPAY ==
[2020-07-27 09:50] VITALS: BMI 29.9
[2020-07-27 12:05] LABS: NATERA MAILED SPECIMEN
== END ==
PROVIDERS: Referring Provider Obstetrics & Gynecology; Visit Provider Obstetrics & Gynecology
DX: Z31.430 Encounter of female for testing for genetic disease carrier status for procreative management (principal); Z84.81 Family history of carrier of genetic disease
CPT/HCPCS: 36415

== ENCOUNTER → 2020-08-28 09:19 | Outpatient (CLI) | payer OTHER, SELFPAY ==
[2020-07-27 09:50] VITALS: BMI 29.9
[2020-08-24 09:36] VITALS: BMI 29.9
--- NOTE | 2020-08-28 09:20 | US_ITS ---
STUDY: SECOND AND THIRD TRIMESTER OBSTETRICAL ULTRASOUND - LIMITED REASON FOR EXAM: Female, 40 years old. growth LMP: 12/16/19 PRIOR ULTRASOUND: 05/07/20 TECHNIQUE: Transabdominal ultrasound evaluation was performed. FINDINGS: There is a single intrauterine fetus. The fetus is in a cephalic presentation. There is demonstrated cardiac activity with a heart rate of 177 bpm. There is a normal amniotic fluid volume. The largest amniotic fluid pocket measures 5.9 cm. The amniotic fluid index (GERALDO) is 20.9 cm. The placenta is anterior in location and is not low lying. There are Grade 1 placental changes. The cervix measures 3.5 cm in length and is closed. BIOMETRY: BPD: 9.1 cm: 36 weeks, 6 days HC: 33.66 cm: 38 weeks, 4 days AC: 39.19 cm: 37 weeks, 0 days FL: 7.18 cm: 36 weeks, 5 days OFD: 11.62 cm: 36 weeks, 5 days Age by LMP: 36 weeks, 4 days. DEUCE by LMP: 09/21/20. age by prior US: 36 weeks, 6 days. DEUCE by prior US: 09/19/20. age by current US: 37 weeks, 2 days. DEUCE by current US: 09/16/20. Estimated weight: 3121 grams, +/- 468 grams, 68 percentile. US/OB Limited With Biometrics IMPRESSION: Single live intrauterine gestation at 37 weeks and 2 days based on the current ultrasound Electronically Signed: Rodríguez Hill MD at 8:03 EDT Tel , Service support ,
== END ==
PROVIDERS: Referring Provider Obstetrics & Gynecology; Visit Provider Obstetrics & Gynecology
DX: O09.529 Supervision of elderly multigravida, unspecified trimester (principal); Z3A.37 37 weeks gestation of pregnancy
CPT/HCPCS: 76816

== ENCOUNTER → 2020-08-31 13:58 | Outpatient (CLI) | payer OTHER, SELFPAY ==
[2020-08-31 09:57] VITALS: BMI 31.1
== END ==
PROVIDERS: Referring Provider Obstetrics & Gynecology; Visit Provider Obstetrics & Gynecology
DX: O09.90 Supervision of high risk pregnancy, unspecified, unspecified trimester (principal); Z3A.00 Weeks of gestation of pregnancy not specified
CPT/HCPCS: 87077; 87081; 87186

== ENCOUNTER → 2020-09-07 17:08 | Outpatient (CLI) | payer OTHER, SELFPAY ==
[2020-09-07 14:17] VITALS: BMI 31.1
== END ==
PROVIDERS: Referring Provider Obstetrics & Gynecology; Visit Provider Obstetrics & Gynecology
DX: O09.90 Supervision of high risk pregnancy, unspecified, unspecified trimester (principal); Z3A.00 Weeks of gestation of pregnancy not specified
CPT/HCPCS: 87635; C9803; U0005; U0003

== ENCOUNTER 2020-09-09 21:28 | Inpatient (IN) | payer OTHER, SELFPAY ==
[2020-07-27 09:50] VITALS: BMI 29.9
[2020-09-07 14:17] VITALS: BMI 31.1
[2020-09-09] VITALS (7 sets, daily range): BP systolic 116–123; BP diastolic 66–70; PULSE 62–85; RESP 18; TEMP 37.2–37.4; O2SAT 98–99; BMI 31.8
[2020-09-09] MEDS: Lactated Ringers 1,000 ML 999 ML IV (21:35)
--- NOTE | 2020-09-09 22:03 | HP.PCM.OB_ITS ---
HPI - General General Date of Admission: 09/09/20 HPI Narrative MJ SPANN, is a 40 F at 38 weeks who presents for rupture of membranes. She has a history of and declines TOLAC Maternal Data Information DEUCE Calculator Estimated Delivery Date Method Current WG Current Estimate 09/21/20 LMP (Certain) 38w 2d [facility] Medical History (Updated 09/09/20 @ 22:[address] Ángela Knox MD) Anxiety Frequent headaches H/O hemorrhage, currently History of blood transfusion History of disseminated intravascular coagulation Migraines Positive GBS test Rh negative state in antepartum period Home Medications multivitamin no.47-iron fum 27 mg-folate no.1 1 mg-dha 300 mg capsule 1 cap PO DAILY 02/09/20 [History Last Taken 09/09/20 08:30] sertraline [Zoloft] 50 mg PO DAILY 09/09/20 [History Last Taken 09/08/20 20:00] Allergy/AdvReac Type Severity Reaction Status Date / Time Sulfa (Sulfonamide Allergy Mild Unknown Verified 09/09/20 21:46 Antibiotics) Family History Father Hypertension Anxiety Mother Breast cancer Grandmother Breast cancer Surgical History H/O section H/O shoulder surgery Social History adopted: No household members: family housing: house number of children: 1 Smoking Status: Never smoker second hand exposure: No alcohol intake: never substance use type: does not use caffeine: No what type of physical activity do you participate in: none seatbelt use: always do you feel safe at home: Yes 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 Date Name GA/Weeks Outcome Route Bth Weight Infant Gen Labor Lgth Anesthesia Del Locatn Provider FOB 09/22/17 Randell 40 live - full term 8lbs 4oz Male epidural [facility] NIKKY Bill Delivery Date: 09/22/17 STAT C/S; Velamentous insertion cord with vessel rupture, placental abruption, hemorrhage, DIC, RH negative Sirisha Pettit Visit Details Expected Delivery Route/Plan RLTCS with SM : yes PP control planned: vasectomy Plans flu vaccine: given tdap vaccine: given rhogam: given LARC form signed: dec movement and labor precautions reviewed. Problem list reviewed and updated with the most current plan of care details and appropriate orders placed. Relevant counseling for the gestational age provided. Continue routine care and follow up unless otherwise noted in visit notes/problem list details OB Flowsheet Initial Weight: 167 lb Date -?-?-?-?-?-?-?-?-?-?-?-?- EGA Weight BP Urine Prot -?-?-?-?-?-?-?-?-?-?-?-?- Glucose FHR FuHt Pres Dilation -?-?-?-?-?-?-?-?-?-?-?-?- Effaced St Visit Note 02/16/20 -?-?-?-?-?-?-?-?-?-?-?-?- 8w 6d 167 lb (+0 oz) 100/68 -?-?-?-?-?-?-?-?-?-?-?-?- 175 -?-?-?-?-?-?-?-?-?-?-?-?- SM- CRL cons wit h LMP SM- CRL 2.4cm cons with LMP 03/15/20 -?-?-?-?-?-?-?-?-?-?-?-?- 12w 6d 172 lb (+5 lb) 114/72 Negative -?-?-?-?-?-?-?-?-?-?-?-?- Negative 150 -?-?-?-?-?-?-?-?-?-?-?-?- GP - No cramping or bleeding. PRR. Normal NIPT. Having gender reveal this weekend. 04/12/20 -?-?-?-?-?-?-?-?-?-?-?-?- 16w 6d 180 lb 2 oz (+13 lb 2 oz) 114/62 Negative -?-?-?-?-?-?-?-?-?-?-?-?- Negative 166 -?-?-?-?-?-?-?-?-?-?-?-?- MH-NO VB, LOF. D blanca well. Anatomy US scheduled. Flu vaccine today 05/11/20 -?-?-?-?-?-?-?-?-?-?-?-?- 21w 0d 187 lb (+20 lb) 112/68 Negative -?-?-?-?-?-?-?-?-?-?-?-?- Negative 150 21 -?-?-?-?-?-?-?-?-?-?-?-?- SM- no vb lof cr amping 06/08/20 -?-?-?-?-?-?-?-?-?-?-?-?- 25w 0d 192 lb (+25 lb) 120/70 Negative -?-?-?-?-?-?-?-?-?-?-?-?- Negative 145 25 -?-?-?-?-?-?-?-?-?-?-?-?- SM- no vb юлия dick discussed increased anxiety symptoms, increased family stress due to niece's illness. will start on zoloft and counseling 07/13/20 -?-?-?-?-?-?-?-?-?-?-?-?- 30w 0d 202 lb 6 oz (+35 lb 6 oz) 110/60 Negative -?-?-?-?-?-?-?-?-?-?-?-?- Negative 150 30 -?-?-?-?-?-?-?-?-?-?-?-?- GP - no LOF, VB, DFM, ctx. Denies complaints. Sister still awaiting genetic testing results. 07/27/20 -?-?-?-?-?-?-?-?-?-?-?-?- 32w 0d 203 lb (+36 lb) 128/68 Negative -?-?-?-?-?-?-?-?-?-?-?-?- Negative 150 34 -?-?-?-?-?-?-?-?-?-?-?-?- SM- SM- no vb cramping lost niec e, coping appropriately. 08/08/20 -?-?-?-?-?-?-?-?-?-?-?-?- 33w 5d 204 lb 6 oz (+37 lb 6 oz) 110/60 Negative -?-?-?-?-?-?-?-?-?-?-?-?- Negative 147 35 -?-?-?-?-?-?-?-?-?-?-?-?- MH-NO Vb, LOF. D iscussed grief from loss of niece. Joshua has helped. Has growth US sched at 36 wk. Sister's genetic was carrier positive for gene. Pt's test is pending. 08/24/20 -?-?-?-?-?-?-?-?-?-?--?-?- 36w 0d 209 lb (+42 lb) 120/82 Negative -?-?-?-?-?-?-?-?-?-?-?-?- Negative 140 36 -?-?-?-?-?-?-?-?-?-?-?-?- SM- no vb crampi ng ctx will do GBS next visit good fm no lof 08/31/20 -?-?-?-?-?-?-?-?-?-?-?-?- 37w 0d 211 lb 2 oz (+44 lb 2 oz) 120/72 Negative -?-?-?-?-?-?-?-?-?-?-?-?- Negative 130 37 Cephalic -?-?-?-?-?-?-?-?-?-?-?-?- GP - no ctx, LOF , VB, dFM. Still waiting for joyce results - sent reminder to call on Thursday. GBS done today. 09/07/20 -?-?-?-?-?-?-?-?-?-?-?-?- 38w 0d 211 lb 6 oz (+44 lb 6 oz) Negative -?-?-?-?-?-?-?-?-?-?-?-?- Negative 140 30 Cephalic -?-?-?-?-?-?-?-?-?-?-?-?- GP - no LOF, VB, dFM, ctx. Still awaiting genetic testing results. RCD scheduled for next week. 09/09/20 -?-?-?-?-?-?-?-?-?-?-?-?- 38w 2d 215 lb 9.793 oz (+48 lb 9.793 oz) 123/70 123/70 -?-?-?-?-?-?-?-?-?-?-?-?- -?-?-?--?-?-?-?-?-?-?-?-?- NST FHR Rate Baby A Baseline: 140 Variability:: Moderate Accelerations:: 15 x 15 Decelerations:: None NST Reactive:: Yes FHR Category:: Category I Uterine Activity:: q2-5 min ROS Eyes Eyes: Reports systems reviewed and no addt'l complaints, except as documented ENT HEENT: Reports systems reviewed and no addt'l complaints, except as documented Cardiovascular Cardiovascular: Reports systems reviewed and no addt'l complaints, except as documented Respiratory/Chest Respiratory/Chest: Reports systems reviewed and no addt'l complaints, except as documented Gastrointestinal Gastrointestinal: Reports systems reviewed and no addt'l complaints, except as documented Genitourinary Genitourinary: Reports systems reviewed and no addt'l complaints, except as documented Musculoskeletal Musculoskeletal: Reports systems reviewed and no addt'l complaints, except as documented Integumentary Integumentary: Reports systems reviewed and no addt'l complaints, except as documented Neurologic Neurologic: Reports systems reviewed and no addt'l complaints, except as documented Psychiatric Psychiatric: Reports systems reviewed and no addt'l complaints, except as documented Endocrine Endocrinology: Reports systems reviewed and no addt'l complaints, except as documented Hematologic/Lymphatic Hematologic/Lymphatic: Reports systems reviewed and no addt'l complaints, except as documented Allergic/Immunologic Allergic/Immunologic: Reports systems reviewed and no addt'l complaints, except as documented Vital Signs Vital Signs Vital Signs: 09/09/20 21:30 09/09/20 21:31 09/09/20 21:32 Temperature 99.0 F Temperature Source Temporal Pulse Rate 71 85 Blood Pressure 123/70 H BP Systolic 123 BP Diastolic 70 Pulse Ox 98 09/09/20 21:37 Temperature Temperature Source Pulse Rate 64 Blood Pressure BP Systolic BP Diastolic Pulse Ox 98 Weight Weight: 215 lb 9.793 oz Body Mass Index (BMI) 31.8 Physical Exam Const alert, oriented x3, no apparent distress, average body habitus, healthy appearing and well nourished HEENT normocephalic and moist oral mucous membranes Head and Scalp: atraumatic Eyes PERRL and EOMs intact bilaterally Neck full ROM Resp normal respiratory effort, no retractions and no use of accessory muscles Cardio regular rate and regular rhythm GI soft to palpation, non-tender and non-distended Extremity normal to inspection and full ROM Skin no rashes or lesions noted Neuro no focal motor deficits and no sensory deficits noted Psych mental status grossly normal, affect normal, speech normal and activity/motor behavior normal Labs Labs Labs: Blood Type B NEGATIVE Antibody Screen NEGATIVE Hct 34.1 % (37-47) L Hgb 11.2 g/dL (12.0-15.0) L Obstetrics US Rubella IgG Antibody Reactive (Nonreactive) Hep Bs Antigen Non-Reactive (Nonreactive) Neisseria gonorrhoeae DNA (JABARI) Negative (Negative) HIV 1&2 Antibody Non-Reactive (Nonreactive) C.trachomatis DNA (PCR) Negative (Negative) Glucose 1 Hr 50 gm 110 mg/dL (70-140) Group B Strep DNA Negative (Negative) Rhogam given: Yes Miscellaneous Test Assessment & Plan (1) Full-term premature rupture of membranes: QUALIFIERS: PROM onset of labor timing: onset of labor within 24 hours of rupture Qualified Code(s): O42.02 - Full-term premature rupture of membranes, onset of labor within 24 hours of rupture PLAN: Presents for rupture of membranes Plan RCD Ancef and Azithromycin ordered Pain relief per anesthesia (2) : QUALIFIERS: Weeks of gestation: 38 weeks Qualified Code(s): Z3A.38 - 38 weeks gestation of COMMENT: LR genetic; declines carrier; NL anatomy (3) Supervision of high risk , antepartum: COMMENT: PRR DEUCE 09/21/20 Girl! Patricia Hernandez PC: Randell Spouse: Madi (4) AMA (advanced maternal age) multigravida 35+: QUALIFIERS: Trimester: third trimester Qualified Code(s): O09.523 - Supervision of elderly multigravida, third trimester COMMENT: growth scan at 36 weeks, NIPT low risk (5) Influenza vaccine administered: COMMENT: 04/12/20 (6) Anxiety: COMMENT: counseling. zoloft. 08/08 stable (7) Family history of genetic disease: COMMENT: alpers- huttenlocher syndrome in niece. sister is carrier. Patient test pending as of 08/08 (8) History of tetanus, diphtheria, and acellular pertussis booster vaccination (Tdap): COMMENT: 06/29/20 (9) 32 weeks gestation of : COMMENT: COVID test ordered 08/01/20 (10) Positive GBS test: COMMENT: 09/06/20 (11) H/O section: COMMENT: 09/2017 w/SM, 09/14/20 @ 2 RLTCS (12) Rh negative state in antepartum period: COMMENT: Rhogam PRN and 28 weeks. Rhogam given 06/29/20 (13) H/O hemorrhage, currently : COMMENT: h/o placental abruption and velamentous cord insterion, DIC and transfused. ICU admission.
[2020-09-09 22:07] LABS: Absolute Lymphocyte Count 1.53 X10^3/uL (0.83-4.51); Absolute Neutrophil Count 5.1 X10^3/uL (2.0-7.7); Basophil# 0.03 X10^3/uL; Basophil% 0.4 % (0-1); Eosinophils% 1.3 % (0-5); Hematocrit 34.4 % (37-47); Hemoglobin 11.1 g/dL (12.0-15.0); Lymphocyte # 1.53 X10^3/ul (0.83-4.51); Lymphocyte % 20.5 % (19-41); Mean Corp Hgb Conc 32.3 g/dL (32-36); Mean Corpuscular Hgb 28.4 pg (27.0-32.0); Mean Platelet Vol. 11.5 fl (6.2-12.0); Monocyte# 0.67 X10^3/uL; NRBC Flagged by Analyzer 0 % (0-5); Neutrophil # 5.07 X10^3/uL (2.7-7.7); Neutrophil % 68.1 % (47-70); Platelet Count 202 K/mm3 (150-450); RBC Distribution Width CV 13.9 % (11.6-14.6); RBC Distribution Width SD 44.1 fl (35.1-43.9); Red Blood Count 3.91 M/mm3 (4.2-5.4); White Blood Count 7.5 K/mm3 (4.4-11.0)
--- NOTE | 2020-09-09 22:10 | OP.PCM_ITS ---
Assessment & Plan (1) delivery delivered: (2) Full-term premature rupture of membranes: QUALIFIERS: PROM onset of labor timing: onset of labor within 24 hours of rupture Qualified Code(s): O42.02 - Full-term premature rupture of membranes, onset of labor within 24 hours of rupture (3) : QUALIFIERS: Weeks of gestation: 38 weeks Qualified Code(s): Z3A.38 - 38 weeks gestation of COMMENT: LR genetic; declines carrier; NL anatomy (4) Supervision of high risk , antepartum: COMMENT: PRR DEUCE 09/21/20 Girl! Patricia Mary PC: Randell Spouse: Madi (5) AMA (advanced maternal age) multigravida 35+: QUALIFIERS: Trimester: third trimester Qualified Code(s): O09.523 - Supervision of elderly multigravida, third trimester COMMENT: growth scan at 36 weeks, NIPT low risk (6) Anxiety: COMMENT: counseling. zoloft. 08/08 stable (7) Family history of genetic disease: COMMENT: alpers- huttenlocher syndrome in niece. sister is carrier. Patient test pending as of 08/08 (8) Positive GBS test: COMMENT: 09/06/20 (9) H/O section: COMMENT: 09/2017 w/SM, 09/14/20 @ 2 RLTCS (10) Rh negative state in antepartum period: COMMENT: Rhogam PRN and 28 weeks. Rhogam given 06/29/20 (11) H/O hemorrhage, currently : COMMENT: h/o placental abruption and velamentous cord insterion, DIC and transfused. ICU admission. Maternal Data Information DEUCE Calculator Estimated Delivery Date Method Current WG Current Estimate 09/21/20 LMP (Certain) 38w 3d Details Operative Information Date of Procedure: 09/10/20 Pre-Operative Diagnosis: Term , Rupture of membranes, history of C- section, declines TOLAC Post-Operative Diagnosis: Same Indications for : Repeat Elective Indications Narrative: 30-year-old G2, P1 at 38 weeks gestation with a history of prior presents with rupture of membranes. Patient declines trial of labor. The risks, benefits, indications, and alternatives to the procedure were discussed with the patient including bleeding, infection, and visceral vascular injury. Patient voiced understanding and agreed to proceed. Classification: Scheduled Procedure Type: low transverse red hat open stack administrator #1: Megan Davison Type of Anesthesia: Spinal Antibiotic Given: Ancef 2 grams IV x1 and Zithromax 500 mg/5 mL X1 Drain: العلي to straight drain Estimated Blood Loss: 700 Fluids Replaced: 600 Findings Description of Procedure: The patient is a at 38 weeks who presented for repeat . Spinal anesthesia was placed without difficulty. العلي catheter was placed. The patient was placed in the dorsal supine position with leftward tilt. Patient was prepped and draped in the normal sterile fashion. Pfannenstiel skin incision was made with the scalpel and carried through to the underlying layer of fascia with the scalpel. Fascia was nicked in the midline and the incision extended laterally. The rectus bellies were dissected off superiorly and inferiorly with out complication both sharply and bluntly. The peritoneum was entered digitally. The incision was stretched and a low transverse uterine incision was made with the scalpel. The infant's head was delivered atraumatically followed by the anterior and posterior shoulders without complication the rest of the infant delivered. The cord was clamped and cut and the was handed off to awaiting nurse. The placenta was delivered spontaneously immediately following and was noted to be intact and have a three- vessel cord. The uterus was exteriorized cleared of all clots and debris, and the incision was closed in a double layer closure using #1 Monocryl. The ovaries and fallopian tubes were noted to be within normal limits. The uterus was returned to the maternal abdomen and gutters were cleared of all clots and debris. The peritoneum was closed with 3-0 Monocryl in a running fashion. Gloves were changed prior to fascial closure. Fascia was closed with 0 PDS in a running fashion. Subcutaneous tissue was copiously irrigated and the skin was closed with 3-0 Monocryl in a subcuticular fashion. Mepilex dressing was applied without complication. Patient was taken to recovery in stable condition. Presentation: Positive for Vertex Amniotic Membrane Rupture Type: Spontaneous Amniotic Fluid Description: Clear Placental Delivery Description: Expressed Placenta Disposition: [facility] Cord Vessel Description: 3 Vessels Cord Entanglement: None A Gender: Female Delayed Cord Clamping: Yes Complications Risks of Surgery Discussed w/Patient: Bleeding, Anesthesia Risks, Infection and Injury to surrounding structure(s) including bowel and bladder Complications: None apparent Procedures Urinary/Genital [id number]: [id number] Delivery global pkg
[2020-09-09] MEDS: Acetaminophen 500 MG Tablet 1000 MG PO (22:12)
--- NOTE | 2020-09-09 22:13 | PCM.DC ---
Discharge Instructions Diet Discharge Diet: No restrictions Activity Discharge Activity: May Not Drive (for 2 weeks or while taking narcotic pain meds.), May Shower and May Take a Tub Bath (in 7 days.) May resume sexual activity in: 4-6 weeks Lifting Restrictions: 20 pounds Additional Activity Instructions:: Nothing in the vagina for 4-6 weeks. You may return to work/school in 6 weeks. Dressing / Incision Call your doctor if your incision/area has: Continuous Slow Oozing, Sudden Increased Bleeding, Increased Pain/ Swelling, Increased Redness and Foul Smelling Discharge Call your doctor if you observe: Fever of 101 or Higher Suture Line Care: Avoid Pulling/Pushing and Avoid Pinching/Bending Follow Up Care Test Results: Test results from this visit will be discussed in further detail at your follow-up appointment, if applicable. Discharge Plan Admission Admit Date/Time: 09/09/20 21:28 Primary Reason for Your Visit: Rupture of membranes Attending Provider: Ángela Knox Primary Care Provider: Care Physician,No Primary Instructions Patient Instructions: After a Discharge Orders/Prescriptions Prescriptions: New naproxen 250 MG tablet 250 - 500 mg PO Q8H PRN PRN (Reason: MILD PAIN) Qty: 30 RF: 1 oxycodone 5 mg capsule 5 mg PO Q6H PRN (Reason: pain) 7 Days Qty: 15 RF: 0 Continued PNV-DHA 27 mg iron-1 mg -300 mg capsule 1 cap PO DAILY RF: 0 sertraline [Zoloft] 50 mg tablet 50 mg PO DAILY RF: 0 Referrals / Follow Up: Care Physician,No Primary [Primary Care Provider] -
[2020-09-09] MEDS: Sodium Citrate/Citric Acid 30 ML UDC PO (22:26)
[2020-09-09] MEDS: Lactated Ringers 1,000 ML 150 ML IV (22:30)
[2020-09-10] VITALS (68 sets, daily range): BP systolic 100–135; BP diastolic 49–76; PULSE 56–110; RESP 14–20; TEMP 36.2–37.3; O2SAT 97–100
[2020-09-10] MEDS: Lactated Ringers 500 ML 999 ML IV
[2020-09-10] MEDS: Cefazolin 2 GM in 0.9% Normal Saline 100 ML IV (01:05)
[2020-09-10] MEDS: Sodium Citrate/Citric Acid 30 ML UDC PO (02:10)
[2020-09-10] MEDS: Oxytocin 30 units/NS 500 ml 30 UNITS/500 ML IV.SOLN 167 UNITS IV (03:42)
[2020-09-10] MEDS: 0.9% Saline Lock 10 ML Syringe IV ×3 (04:03→22:04)
[2020-09-10] MEDS: Ketorolac 30 MG/ML Syringe IV ×4 (04:03→22:03)
[2020-09-10] MEDS: Acetaminophen 500 MG Tablet 1000 MG PO ×4 (04:11→22:03)
--- NOTE | 2020-09-10 05:43 | NURSING ---
epidural catheter removed- blue tip intact.
[2020-09-10 05:59] LABS: Hematocrit 31.2 % (37-47); Hemoglobin 10.1 g/dL (12.0-15.0); Mean Corp Hgb Conc 32.4 g/dL (32-36); Mean Corpuscular Hgb 28.6 pg (27.0-32.0); Mean Corpuscular Volume 88.4 fL (81-99); Mean Platelet Vol. 11.2 fl (6.2-12.0); Platelet Count 150 K/mm3 (150-450); RBC Distribution Width CV 13.8 % (11.6-14.6); RBC Distribution Width SD 44.5 fl (35.1-43.9); Red Blood Count 3.53 M/mm3 (4.2-5.4); White Blood Count 11.9 K/mm3 (4.4-11.0)
[2020-09-10] MEDS: Lactated Ringers 1,000 ML 100 ML IV (06:50)
[2020-09-10] MEDS: Senna/Docusate Sodium 1 Tablet PO (09:41)
[2020-09-10] MEDS: Sertraline 50 MG Tablet PO (20:00)
[2020-09-11 01:38] VITALS: PULSE 80; RESP 16; O2SAT 99
[2020-09-11] MEDS: Acetaminophen 500 MG Tablet 1000 MG PO ×4 (03:40→21:40)
[2020-09-11] MEDS: Naproxen 250 MG Tablet 500 MG PO ×3 (03:40→20:02)
[2020-09-11 03:48] VITALS: BP 103/54; PULSE 69; RESP 18; TEMP 36.2; O2SAT 97
[2020-09-11 05:52] LABS: Absolute Lymphocyte Count 1.44 X10^3/uL (0.83-4.51); Absolute Neutrophil Count 5.9 X10^3/uL (2.0-7.7); Basophil# 0.02 X10^3/uL; Basophil% 0.2 % (0-1); Eosinophil# 0.12 X10^3/uL; Eosinophils% 1.5 % (0-5); Hematocrit 29.9 % (37-47); Hemoglobin 9.5 g/dL (12.0-15.0); Lymphocyte # 1.44 X10^3/ul (0.83-4.51); Lymphocyte % 17.5 % (19-41); Mean Corp Hgb Conc 31.8 g/dL (32-36); Mean Corpuscular Hgb 28.7 pg (27.0-32.0); Mean Corpuscular Volume 90.3 fL (81-99); Mean Platelet Vol. 10.4 fl (6.2-12.0); Monocyte# 0.62 X10^3/uL; Monocyte% 7.6 % (0-10); NRBC Flagged by Analyzer 0 % (0-5); Neutrophil # 5.94 X10^3/uL (2.7-7.7); Neutrophil % 72.3 % (47-70); Platelet Count 133 K/mm3 (150-450); RBC Distribution Width CV 14.1 % (11.6-14.6); RBC Distribution Width SD 46.2 fl (35.1-43.9); Red Blood Count 3.31 M/mm3 (4.2-5.4); White Blood Count 8.2 K/mm3 (4.4-11.0)
--- NOTE | 2020-09-11 07:56 | PN.OBGYN_ITS ---
Subjective Subjective Patient doing well without complaints. Tolerating PO. Ambulating and voiding without difficulty. feeding well. Denies chest pain, shortness of breath, calf pain/swelling, fevers, chills, lightheadedness. Objective Data Objective Data Vital Signs: Vital Signs Temp Pulse Resp BP Pulse Ox 97.2 F L 69 18 103/54 L 97 09/11/20 03:48 09/11/20 03:48 09/11/20 03:48 09/11/20 03:48 09/11/20 03:48 Oxygen Delivery Method Room Air Weight: 215 lb 9.793 oz Body Mass Index (BMI) 31.8 Intake & Output: Intake and Output for Last 24 Hours 09/09/20 09/10/20 09/11/20 23:59 23:59 23:59 Intake Total 899.1 / 899.1 2513.34 / 2513.34 Output Total 3150 / 3150 Balance 899.1 / 899.1 -636.66 / -636.66 Lab / Micro Data Result Diagrams: 09/11/20 05:45 Labs: Laboratory Results - last 24 hr 09/11/20 05:45 WBC 8.2 RBC 3.31 L Hgb 9.5 L Hct 29.9 L MCV 90.3 MCH 28.7 MCHC 31.8 L RDW Std Deviation 46.2 H RDW Coeff of Castillo 14.1 Plt Count 133 L MPV 10.4 Immature Gran % (Auto) 0.900 Neut % (Auto) 72.3 H Lymph % (Auto) 17.5 L Harper % (Auto) 7.6 Eos % (Auto) 1.5 Baso % (Auto) 0.2 Absolute Neuts (auto) 5.9 Absolute Lymphs (auto) 1.44 Nucleated RBC % 0 Physical Exam Const alert and oriented x3 HEENT normocephalic Eyes PERRL Neck full ROM Resp normal respiratory effort GI soft to palpation GI Narrative: FF below U. Dressing dry and intact Palpation: tender other (appropriately) Assessment & Plan (1) delivery delivered: (2) Rh negative state in antepartum period: COMMENT: Rhogam PRN and 28 weeks. Rhogam given 06/29/20 PLAN: s/p LTCS PPD # 1 1. routine post care 2. breast feeding- support given 3. rh negative 4. rubella immune
[2020-09-11 08:18] VITALS: BP 109/62; PULSE 74; RESP 16; TEMP 36.9
[2020-09-11] MEDS: Senna/Docusate Sodium 1 Tablet PO (10:22)
[2020-09-11 13:30] VITALS: BP 109/53; PULSE 75; RESP 15; TEMP 36.7
[2020-09-11 20:00] VITALS: BP 118/72; PULSE 77; RESP 16; TEMP 37.1; O2SAT 98
[2020-09-11] MEDS: Sertraline 50 MG Tablet PO (20:02)
[2020-09-11 23:19] VITALS: BP 113/61; PULSE 66; RESP 16; TEMP 36.6
[2020-09-12 02:50] VITALS: BP 102/61; PULSE 73; RESP 18; TEMP 36.4
[2020-09-12] MEDS: Acetaminophen 500 MG Tablet 1000 MG PO ×2 (04:54→11:27)
[2020-09-12] MEDS: Naproxen 250 MG Tablet 500 MG PO ×2 (04:54→12:19)
--- NOTE | 2020-09-12 07:53 | PCM.PN.OB ---
Subjective Subjective Patient doing well without complaints. Tolerating PO. Ambulating and voiding without difficulty. feeding well. Denies chest pain, shortness of breath, calf pain/swelling, fevers, chills, lightheadedness. Objective Data Objective Data Vital Signs: Vital Signs Temp Pulse Resp BP Pulse Ox 97.6 F L 73 18 102/61 98 09/12/20 02:50 09/12/20 02:50 09/12/20 02:50 09/12/20 02:50 09/11/20 20:00 Oxygen Delivery Method Room Air Weight: 215 lb 9.793 oz Body Mass Index (BMI) 31.8 Intake & Output: Intake and Output for Last 24 Hours 09/10/20 09/11/20 09/12/20 23:59 23:59 23:59 Intake Total 2513.34 / 2513.34 Output Total 3150 / 3150 Balance -636.66 / -636.66 Lab / Micro Data Result Diagrams: 09/11/20 05:45 Physical Exam Const alert and oriented x3 HEENT normocephalic Eyes PERRL Neck full ROM Resp normal respiratory effort GI soft to palpation GI Narrative: FF below U. Dressing dry and intact Palpation: tender other (appropriately) Assessment & Plan (1) delivery delivered: PLAN: s/p LTCS PPD # 2 1. routine post care 2. breast feeding- support given 3. rh negative 4. rubella immune 5. home today
[2020-09-12 08:00] VITALS: BP 102/58; PULSE 71; RESP 18; TEMP 36.6; O2SAT 99
[2020-09-12] MEDS: Senna/Docusate Sodium 1 Tablet PO ×2 (11:27→12:18)
--- NOTE | 2020-09-12 13:51 | CASEMGMT ---
Social Work Brief Assessment - Labor and Delivery Unit Patient Address: [address] , [place] [address] Phone number: [phone] Date of Referral/Notification: 09.11.2020 Time of Referral: 1418 Referred By: Dr. Knox Reason for Refrral: Maternal history of depression Date of Intervention: 09.12.2020 Time of Intervention: 1120 Informant: Medical record and mother of baby (MOB) Griselda Goldstein History: MOB is 40 year old female, Para 2 after delivering baby girl Patricia Goldstein on 09.10.2020. MOB is to the father of baby (FOB) Chris Goldstein. Older child is Randell Goldstein, born 09.22.2017. MOB with history of hemorrhage after first delivery with ICU admission post delivery. care with Patricia started at 8 weeks gestation and regular thereafter. weight 8 pounds 4 ounces. Apgars 8 and 9 at 1 and 5 minutes of life. 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 MOB endorses history of anxiety with more anxiety after Randell was born, rather than the depression. MOB did try some counseling with Elissapato Weinstein at [facility], but due to visits being virtual did not continue as long as would have if in-person visits were able to occur. MOB reports started Zoloft during this , as was feeling increase of anxiety and irritability. Denies history of suicidal ideation or intent. MOB endorses feeling that the medication is working well. MOB reports to have good support from the FOB, MOB's mother, and MOB's sister. MOB's in-laws do live in the area and are also supportive. MOB has no safety concerns at home or with the FOB. No reports of any substance use issues. Maternal drug screen negative on 02.16.2020. Assessment: Met with MOB in room. Baby sleeping in bedside crib during social work visit. MOB would gaze over at baby intermittently and did smile when talking about the baby. 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 Discussed life changes and stressors during this last year. MOB reports intent to remain on antidepressants in the period, agrees to speak with health care provider should symptoms change/worsen or become distressing. MOB discussed self care techniques she used during , and reports to understand this is important moving forward. MOB reports also more willing to speak up about how feeling, and to accept help this time around. MOB endorses a good supports system, and to have family members who will tell MOB if start to see MOB show signs of anxiety again. Supportive listening offered. Provided MOB with mood and anxiety packet, which includes resources locally and online. MOB accepted information provided and thanked web content & social media manager. No voiced concerns by nursing staff regarding mother/child interactions or bonding. Plan: MOB and baby to discharge home when ready. Resource information for mood and anxiety disorders provided for home going. No further needs requested or indicated. -PARVIZ Ortega, MERCHANDISE COORDINATOR
--- NOTE | 2020-09-17 07:53 | PCM.DC.SUM ---
Providers Date of Admission: 09/09/20 Primary Care Physician: Katiana Primary Care Phys Reason For Visit: CSECTION Diagnosis Discharge Diagnosis (1) delivery delivered: Status: Acute Code(s): O82 - Encounter for delivery without indication Medications at Discharge Home Medications multivitamin no.47-iron fum 27 mg-folate no.1 1 mg-dha 300 mg capsule 1 cap PO DAILY 02/09/20 naproxen 250 - 500 mg PO Q8H PRN PRN #30 tab 09/09/20 oxycodone 5 mg PO Q6H PRN 7 Days #15 cap 09/09/20 sertraline [Zoloft] 50 mg PO DAILY 09/09/20 Hospital Course Operations section Summary of Care Provided Hospital Course: Patient underwent section with routine recovery, return of normal bowel and bladder function. Ambulating, voiding and tolerating PO. Stable for discharge home POD #3. ABG / Lab / Microbiology Data Result Diagrams: 09/11/20 05:45 D/C Instructions Discharge Diet: No restrictions May resume sexual activity in: 4-6 weeks Additional Activity Instructions: Nothing in the vagina for 4-6 weeks. You may return to work/school in 6 weeks. Call your doctor if your incision/area has: Continuous Slow Oozing, Sudden Increased Bleeding, Increased Pain/ Swelling, Increased Redness and Foul Smelling Discharge Call your doctor if you observe: Fever of 101 or Higher Suture Line Care: Avoid Pulling/Pushing and Avoid Pinching/Bending Please Follow Up With: Debby Daniel MD Meaningful Use Info Meaningful Use Diagnoses (Choose all that apply): None applicable Discharge Plan Admission Admit Date/Time: 09/09/20 21:28 Primary Reason for Your Visit: Rupture of membranes Attending Provider: Ángela Knox Primary Care Provider: Care Physician,Katiana Primary Instructions Forms: Information Patient Instructions: After a Discharge Orders/Prescriptions Prescriptions: New naproxen 250 MG tablet 250 - 500 mg PO Q8H PRN PRN (Reason: MILD PAIN) Qty: 30 RF: 1 oxycodone 5 mg capsule 5 mg PO Q6H PRN (Reason: pain) 7 Days Qty: 15 RF: 0 Continued PNV-DHA 27 mg iron-1 mg -300 mg capsule 1 cap PO DAILY RF: 0 sertraline [Zoloft] 50 mg tablet 50 mg PO DAILY RF: 0 Referrals / Follow Up: Care Physician,No Primary [Primary Care Provider] - Disposition Disposition (needs filled in before D/C Order can be placed): Home, self care
== END 2020-09-12 12:20 | disposition home or self-care (01) | DRG 788 ==
LOC: WPOUT 21:28 → WP 21:28
PROVIDERS: Admitting Provider Obstetrics & Gynecology; Visit Provider Obstetrics & Gynecology
DX: O65.5 Obstructed labor due to abnormality of maternal pelvic organs (principal); O42.02 Full-term premature rupture of membranes, onset of labor within 24 hours of rupture; O34.211 Maternal care for low transverse scar from previous cesarean delivery; Z3A.38 38 weeks gestation of pregnancy; Z37.0 Single live birth
CPT/HCPCS: 59025; 59050; 85025; 85027; 86850; 86900; 86901; 99218; 99251; J7120; A4216; G0378; G0463

== ENCOUNTER → 2022-12-29 | Outpatient (CLI) | payer OTHER, SELFPAY ==
--- NOTE | 2022-12-29 11:48 | BI_ITS ---
MAMMOGRAPHY - BILATERAL SCREENING REASON FOR EXAM: Female, 42 years old. Routine annual screening examination. PERTINENT HISTORY: Mother with breast cancer. Grandmother with breast cancer. TECHNIQUE: Digital bilateral breast james (3D mammographic acquisition) in the CC and MLO projections. 2-D mediolateral oblique (MLO) and craniocaudad (CC) views of both breasts were obtained. CAD: Full Field Digital Mammography with Computer Added Detection was performed. COMPARISON: None. Baseline examination. FINDINGS: Breast Composition: There are scattered areas of fibroglandular density. There are no dominant masses or suspicious calcifications. No other significant abnormalities are identified. BI/SCRN MAMM (CAD)W/JAMES BILAT IMPRESSION: Negative screening mammogram. Yearly followup mammogram recommended. (A) ASSESSMENT CATEGORY: BIRADS Category 1: Negative. A letter regarding these results will be sent to the patient by the facility within 30 days. Approximately 10% of breast cancers are not detected by mammography. A normal mammogram should not delay biopsy of a clinically suspicious abnormality. [id number] Electronically Signed: Pietro Baumann MD at 13:21 EDT ,
[2023-01-02 14:08] LABS: HPV APTIMA, High Risk Negative (Negative)
== END | disposition home or self-care (01) ==
PROVIDERS: Referring Provider Obstetrics & Gynecology; Visit Provider Obstetrics & Gynecology
DX: Z12.31 Encounter for screening mammogram for malignant neoplasm of breast (principal); Z80.3 Family history of malignant neoplasm of breast
CPT/HCPCS: 77063; 77067; 87624; 88175; G0145

== ENCOUNTER → 2023-09-02 | Outpatient (CLI) | payer OTHER, SELFPAY ==
[2023-09-02 11:23] LABS: Absolute Lymphocyte Count 1.12 X10^3/uL (0.83-4.51); Absolute Neutrophil Count 2.6 X10^3/uL (2.0-7.7); Basophil# 0.02 X10^3/uL; Basophil% 0.5 % (0-1); Eosinophil# 0.04 X10^3/uL; Eosinophils% 0.9 % (0-5); Hematocrit 42.7 % (37-47); Hemoglobin 14.1 g/dL (12.0-15.0); Lymphocyte # 1.12 X10^3/ul (0.83-4.51); Lymphocyte % 25.4 % (19-41); Mean Corpuscular Hgb 29.4 pg (27.0-32.0); Mean Platelet Vol. 9.6 fl (6.2-12.0); Monocyte# 0.65 X10^3/uL; Monocyte% 14.7 % (0-10); NRBC Flagged by Analyzer 0 % (0-5); Neutrophil # 2.57 X10^3/uL (2.7-7.7); Neutrophil % 58.3 % (47-70); Platelet Count 242 K/mm3 (150-450); RBC Distribution Width CV 12.6 % (11.6-14.6); RBC Distribution Width SD 41.5 fl (35.1-43.9); White Blood Count 4.4 K/mm3 (4.4-11.0)
[2023-09-02 11:55] LABS: Vitamin D,25 Hydroxy 21.8 ng/mL
[2023-09-02 12:06] LABS: ALB/GLOB Ratio 0.9 RATIO (0.9-2.4); AST(SGOT) 18 U/L (15-37); Alanine Aminotransfer ALT/SGPT 23 U/L (13-56); Albumin, Serum 3.5 g/dL (3.2-5.0); Alkaline Phosphatase 105 U/L (45-117); Anion Gap 7 (5-15); BUN 11 mg/dL (7-18); BUN/Creat Ratio 13.2 RATIO (10-20); Calcium,Total 8.9 mg/dL (8.5-10.1); Chloride 105 mmol/L (98-107); Cholesterol 191 mg/dL (200); Creatinine, Serum 0.83 mg/dL (0.55-1.02); EST Glomerular Filtration Rate 80 mL/min (>60); Est Glom Filt Rate - Afr Amer 97 mL/min (>60); Globulin 3.7 g/dL (2.2-4.2); Glucose 100 mg/dL (74-106); High Density Lipoprotein 71 mg/dL; Potassium 3.7 mmol/L (3.5-5.1); Protein, Total 7.2 g/dL (6.4-8.2); Sodium Level 137 mmol/L (136-145); Thyroid Stim Hormone (TSH) 1.39 uIU/mL (0.358-3.74); Triglycerides 75 mg/dL; Very Low Density Lipoprotein 15 mg/dL (5-40)
== END | disposition home or self-care (01) ==
PROVIDERS: Visit Provider Obstetrics & Gynecology
DX: Z13.29 Encounter for screening for other suspected endocrine disorder (principal); Z13.0 Encounter for screening for diseases of the blood and blood-forming organs and certain disorders involving the immune mechanism; Z13.1 Encounter for screening for diabetes mellitus; Z13.220 Encounter for screening for lipoid disorders; Z13.21 Encounter for screening for nutritional disorder
CPT/HCPCS: 36415; 80053; 80061; 82306; 83036; 84443; 85025

== ENCOUNTER → 2024-05-03 | Outpatient (CLI) | payer OTHER, SELFPAY ==
--- NOTE | 2024-05-03 13:29 | BI_ITS ---
MAMMOGRAPHY - BILATERAL SCREENING REASON FOR EXAM: Female, 43 years old. Routine annual screening examination. PERTINENT HISTORY: Mother with breast cancer. Grandmother with breast cancer. TECHNIQUE: Digital bilateral breast james (3D mammographic acquisition) in the CC and MLO projections. 2-D mediolateral oblique (MLO) and craniocaudad (CC) views of both breasts were obtained. CAD: Full Field Digital Mammography with Computer Added Detection was performed. COMPARISON: Comparison is made with prior study December 29, 2022. FINDINGS: Breast Composition: There are scattered areas of fibroglandular density. There are no dominant masses or suspicious calcifications. Stable small benign-appearing bilateral axillary lymph nodes. No other significant abnormalities are identified. There has been no significant change since the prior study. BI/SCRN MAMM (CAD)W/JAMES BILAT IMPRESSION: Stable bilateral screening mammogram. Yearly follow-up mammogram recommended. (A) ASSESSMENT CATEGORY: BIRADS Category 2: Benign. A letter regarding these results will be sent to the patient by the facility within 30 days. Approximately 10% of breast cancers are not detected by mammography. A normal mammogram should not delay biopsy of a clinically suspicious abnormality. [id number] Electronically Signed: Pietro Baumann MD at 14:17 EST ,
== END | disposition home or self-care (01) ==
LOC: OPBI 13:28
PROVIDERS: Referring Provider Obstetrics & Gynecology; Visit Provider Obstetrics & Gynecology
DX: Z12.31 Encounter for screening mammogram for malignant neoplasm of breast (principal); Z80.3 Family history of malignant neoplasm of breast
CPT/HCPCS: 77063; 77067